=== PATIENT | female | born 1985 | race Caucasian/White ===

== ENCOUNTER 2023-06-21 13:02 | Emergency (ER) | payer OTHER, SELFPAY ==
--- NOTE | ~2023-06-21 | US_ITS ---
EXAMINATION: US PELVIS CLINICAL INFORMATION: Lower abdominal pain COMPARISON: None available. TECHNIQUE: Ultrasound of the pelvis is performed using both transabdominal and transvaginal transducers along with Doppler. Transvaginal imaging is performed due to inadequate visualization transabdominally. FINDINGS: Uterus: The uterus is anteverted, anteflexed and measured 7.3 x 3.8 x 4.3 cm. The double wall endometrial thickness is 1.0 cm. The uterus is smooth in contour and has normal myometrial echogenicity. There is a hypoechoic lesion in the anterior fundus measuring 1.5 x 1.7 x 1.8 cm. There are small nabothian cysts seen in the cervix. Adnexa: Both ovaries are visualized. There is normal color flow to the adnexa. There is no ovarian torsion. There is no pelvic ascites or fluid collection. Right ovary measures 3.0 x 1.7 x 1.4 cm and volume 3.8 mL. It appears unremarkable. Left ovary measures 3.2 x 2.2 x 1.9 cm and volume 6.8 mL. There is no free fluid in the cul-de-sac. US/US pelvic and transvaginal IMPRESSION: 1. Small uterine fibroid. 2. Small nabothian cysts in the cervix. 3. The ovaries are unremarkable.
--- NOTE | ~2023-06-21 | US_ITS ---
EXAMINATION: US RETROPERITONEAL LIMITED (RENAL ONLY) CLINICAL INFORMATION: Suprapubic pain. History of kidney stones.. COMPARISON: None available. TECHNIQUE: Routine grayscale imaging of kidneys was performed. The bladder was not imaged. FINDINGS: RIGHT KIDNEY: 10.2 x 4.7 x 4.7 cm (SAG x AP x TRV). The kidney is normal in size, contour, and echogenicity. Renal cortical thickness is normal. No calculi or focal parenchymal lesions. No hydronephrosis. LEFT KIDNEY: 10.6 x 5.2 x 4.3 cm (SAG x AP x TRV). The kidney is normal in size, contour, and echogenicity. Renal cortical thickness is normal. No calculi or focal parenchymal lesions. No hydronephrosis. Incidental finding of a likely small accessory splenule at the tip of spleen and superior border of kidney. US/US renal BI IMPRESSION: Unremarkable renal ultrasound.
[2023-06-21 13:13] VITALS: BP 132/74; PULSE 102; RESP 16; TEMP 36.6; O2SAT 97; BMI 33.7
--- NOTE | 2023-06-21 13:16 | ED.GENADULT ---
HPI - General Adult General Chief complaint: Abdominal Pain Stated complaint: Low Abd Pain Time Seen by Provider: 06/21/23 13:23 Source: patient Mode of arrival: ambulatory Limitations: no limitations History of Present Illness HPI narrative: Patient is a 38-year-old female with history of kidney stones, bilateral salpingectomy, ectopic , and ovarian cyst which required urgent surgery presenting to the emergency department with complaint of lower abdominal pain since this morning. Reports pain became so severe at work that she was advised to come to the emergency department. She denies any nausea, vomiting, diarrhea, constipation. Denies vaginal bleeding or other vaginal discharge. Denies concern for STIs. Describes pain as suprapubic cramping. She denies dysuria or hematuria. Complains of some low back pain but denies flank pain. MD complaint: lower abdominal pain Onset (ago): hour(s) Location: abdomen Radiation: non-radiation Severity: severe Severity scale (1-10): 8 Quality: aching Pain Consistency: constant Relieving factors: none Treatments prior to arrival: none Related Data Previous Rx's Medication Instructions Recorded ondansetron 4 mg disintegrating 4 mg PO Q8H PRN nausea and 06/21/23 tablet vomiting #10 tabs oxycodone 5 mg tablet 5 mg PO Q8H PRN severe pain (scale 06/21/23 score 7-10) #6 tabs Allergies Allergy/AdvReac Type Severity Reaction Status Date / Time aspirin [ASPIRIN] Allergy Severe ANAPHYLAXIS Verified 06/21/23 14:19 bee pollen [BEE STINGS] Allergy Unknown ANAPHYLAXIS Verified 06/21/23 14:19 latex [LATEX] Allergy Unknown RASH Verified 06/21/23 14:19 Sulfa (Sulfonamide Allergy Unknown RASH Verified 06/21/23 14:19 Antibiotics) [SULFA (SULFONAMIDE ANTIBIOTICS)] medroxyprogesterone Allergy Unknown Verified 06/21/23 14:19 [From Depo-Provera] nitrofurantoin Allergy Anaphylaxis Verified 06/21/23 14:19 [From Macrobid] Review of Systems Review of Systems: As per HPI. Yes all other systems are reviewed and are negative Constitutional: Constitutional: Reports as per HPI [facility] Social History Social History Advance Directives: No Physical Exam ED Vital Signs: Vital Signs - 24 hr 06/21/23 13:13 Temperature 97.8 F Pulse Rate 102 H Respiratory Rate 16 Blood Pressure 132/74 Pulse Oximetry 97 Oxygen Delivery Method Room Air BMI result Body Mass Index 33.7 Vital signs have been reviewed and appear to be correct. Blood pressure normal. Heart rate normal. Respiratory rate normal. Temperature normal. Oxygen saturation normal. Const General: cooperative, healthy appearing and no acute distress Orientation/consciousness: oriented to person, oriented to place, oriented to time and patient oriented x3 Limitations: no limitations HENMT Head: Yes normocephalic and Yes atraumatic Ears: external ears normal General nose exam: Normal external nose present Face and sinus: Yes face symmetric Mouth: oropharynx normal and moist mucous membranes Throat: Yes uvula midline Eyes Pupils: Equal, round and reactive pupils present Neck Neck: Yes normal visual inspection and Yes supple Resp Effort & Inspection: normal respiratory effort and able to speak in complete sentences Auscultation: clear to auscultation bilaterally Cardio Rate: regular rate Rhythm: regular rhythm Heart sounds: S1 normal heart sound present and S2 normal heart sound present GI Inspection: Yes normal to inspection Palpation (GI): Soft to palpation and Tenderness to palpation present (GI) in the LLQ, in the RLQ and suprapubicly Auscultation: normoactive bowel sounds Other: Pelvic exam chaperoned by LEOBARDO Godoy and JACKELIN Story. General: Yes no CVA tenderness External Female Exam: normal external appearance Speculum Exam - Vagina: normal appearance of the vagina Speculum Exam - Cervix: normal appearance of the cervix, normal palpation, Cervical os closed and normal vervical discharge Bimanual exam- vagina & uterus: normal palpation Back/Spine/Pelvis Back: no CVA tenderness Skin General skin exam: elasticity normal and turgor normal Neuro General: oriented to person, oriented to place, oriented to time, patient oriented x3, moves all extremities, no focal motor deficits and CN's II-XI intact bilaterally Cranial nerves: Yes Equal, round and reactive pupils present Cognition (Neuro): normal cognition Extrem General: Yes full ROM, Yes no pedal edema and Yes no calf tenderness Psych Mental Status: mental status grossly normal Affect: normal affect Thought process: Normal thought process present Course Course Course Narrative: This is an RME: Additional HPI, ROS, PE not included below will be deferred to primary provider. 38 yo f presents w/ lower abd pain and pain w/ emptying bladder Plann- labs ua Reevaluation(s) Reevaluation #1: 06/24/23 0919-- received results of STI panel. Patient has tested negative for gonorrhea, chlamydia, Trichomonas and Rocio. She did test positive for Gardnerella. I called and spoke with patient and informed her of all results. She states that she is not currently having any symptoms of abnormal vaginal discharge or fishy odor. She will not be treated with metronidazole at this time as she is asymptomatic and she was advised to return to the ED if she does develop these symptoms. Medications Administered Discontinued Medications Generic Name Dose Route Start Last Admin Trade Name Deja PRN Reason Stop Dose Admin Oxycodone HCl 5 mg 06/21/23 14:07 06/21/23 14:18 Oxycodone Hcl Immed Release 5 Mg Tablet PO 06/21/23 14:08 5 mg ONCE ONE Administration Medical Decision Making Medical Decision Making MDM Narrative: Patient is a 38-year-old female with history of kidney stones, bilateral salpingectomy, ectopic , and ovarian cyst which required urgent surgery presenting to the emergency department with complaint of lower abdominal pain since this morning. On exam patient is awake, A+Ox3, VS WNL, afebrile, normal neurological exam without focal deficits, physical exam findings as above. Given reported symptoms and physical exam findings, initial differential includes UTI/pyelonephritis, ovarian cyst, uterine fibroid, STI, BV, renal or ureteral calculi. Labs notable for no leukocytosis, no anemia, no significant electrolyte abnormalities. Ultrasounds notable for unremarkable renal exam, small uterine fibroid, unremarkable ovaries. My interpretation is in agreement with the radiologist's interpretation. Patient reports pain has improved with medications given in the ED. feel patient is stable for discharge home at this time. Patient states she does not currently have an [employer], will refer to Dr. Schilling for follow up. CT NG pending, will contact patient with any positive results. Advised patient to alternate Tylenol and ibuprofen, will prescribe a few oxycodone for severe pain as well as zofran for nausea. Discussed strict return precautions with patient at bedside. Patient verbalized understanding of and agreement with plan. Differential Diagnosis Differential Diagnoses: The differential diagnosis associated with the presentation includes As per MDM. Admission/Observation Consideration of admission/observation: Escalation of care including admission/observation considered Patient would have been admitted to the hospital had their work up had any findings where hospital admission was appropriate and their clinical presentation warranted hospital admission. Lab Data [facility] [place] Lab Attestation statement: I reviewed the patient's lab results. As per [facility] [place] 06/21/23 13:46 06/21/23 13:46 Labs: Lab Results 06/21/23 06/21/23 06/21/23 Range/Units 13:31 13:46 16:50 WBC 7.4 (4.8-10.8) X10*3/uL RBC 4.42 (4.20-5.50) X10*6/uL Hgb 13.0 (12.0-16.0) g/dl Hct 37.7 (37.0-47.0) % MCV 85.3 (80.0-98.0) fL MCH 29.4 (27.0-33.0) pg MCHC 34.5 (31.0-35.0) g/dl RDW 12.6 (11.0-16.0) % Plt Count 378 (160-400) X10*3/uL MPV 8.3 L (9.4-12.3) fL Immature Gran % (Auto) 0.3 (0.0-0.4) % Neut % (Auto) 59.7 (45-73) % Lymph % (Auto) 32.1 (20-40) % [place] % (Auto) 6.1 (2-11) % Eos % (Auto) 1.1 (0-4) % Baso % (Auto) 0.7 (0-2) % Lymph # (Auto) 2.4 (1.2-4.9) X10*3/uL [place] # (Auto) 0.5 (0.1-1.2) X10*3/uL Eos # (Auto) 0.1 (0.0-0.4) X10*3/uL Baso # (Auto) 0.1 (0.0-0.2) X10*3/uL Abs Immat Gran (auto) 0.02 (0.00-0.03) X10*3/uL Absolute Neuts (auto) 4.4 (2.0-8.3) x10*3/uL Absolute Nucleated RBC 0.000 (0.0-0.012) X10*3/uL Nucleated RBC % (auto) 0.0 (0.0-0.2) /100WBC Sodium 137 (135-145) mmol/L Potassium 3.9 (3.3-5.1) mmol/L Chloride 106 (96-108) mmol/L Carbon Dioxide 26 (22-29) mmol/L Anion Gap 9 L (12-20) BUN 6 L (9-16) mg/dL Creatinine 0.75 (0.5-1.4) mg/dL Estim Creat Clear Calc 98.9 Estimated GFR > 60 Random Glucose 88 (60-115) mg/dL Calcium 9.2 (8.4-10.2) mg/dL Magnesium 1.8 (1.6-2.6) mg/dL Total Bilirubin 0.2 (0.0-1.0) mg/dL AST 18 (5-31) U/L ALT 16 (0-31) U/L Alkaline Phosphatase 90 (39-117) U/L Total Protein 7.2 (6.5-8.0) g/dL Albumin 4.2 (3.5-5.0) g/dL Lipase 152 H (8-78) U/L Urine Color Yellow Urine Appearance Clear Urine pH 6.5 (5.0-9.0) Ur Specific [place] <= 1.005 (1.005-1.025) Urine Protein Negative (Neg-Trace) mg/dL Urine Glucose (UA) Negative (Negative) mg/dL Urine Ketones Negative (Negative) mg/dL Urine Blood Negative (Negative) Urine Nitrite Negative (Negative) Ur Leukocyte Esterase Negative (Negative) Urine Test NEGATIVE (NEGATIVE) Rocio species DNA Negative (Negative) Chlam trachomat DNA PCR NOT DETECTED (Not Detect.) Gardnerella DNA Probe Positive A (Negative) N.gonorrhoeae DNA (PCR) NOT DETECTED (Not Detect.) Trichomonas DNA Probe Negative (Negative) Independent Interpretation I performed an independent interpretation of an: Ultrasound Interpretation: no renal abnormalities, small uterine fibroid, unremarkable ovaries Radiology Impression Discussion of test interpretation with radiology: I have reviewed the radiologist's reading. Radiologist Impression: US/US pelvic and transvaginal IMPRESSION: 1. Small uterine fibroid. 2. Small nabothian cysts in the cervix. 3. The ovaries are unremarkable. US/US renal BI IMPRESSION: Unremarkable renal ultrasound. External Record Review External record reviewed: Inpatient record, Office record and Outpatient record Prescription Management I considered prescription management with: Pain Medication and Other Discharge Plan Discharge Clinical Impression: Uterine fibroid, Abdominal pain Patient Disposition: Home, Self-Care Instructions: Abdominal Pain (ED) Additional Instructions: You were evaluated in the emergency department today for abdominal pain. Your ultrasound showed evidence of a uterine fibroid which may be the cause of your pain. We recommend that you take 600 mg ibuprofen or 650 mg Tylenol every 6 hours as needed for discomfort. If necessary, you can alternate these medications every 6 hours. For example, at 9:00 a.m. take Tylenol, then at noon take ibuprofen, then at 3:00 p.m. take Tylenol, etc.. You are being prescribed oxycodone for severe pain. You are also being prescribed Zofran (ondansetron) for nausea. You are being referred to Dr. Schilling, [employer] for follow up. Please return to the emergency department if you develop increasing abdominal pain, persistent vomiting, fever 100.4? F or greater, severe back or flank pain, or any other concerning symptoms. Prescriptions: New ondansetron 4 mg tablet,disintegrating 4 mg PO Q8H PRN (Reason: nausea and vomiting) Qty: 10 0RF oxycodone 5 mg tablet 5 mg PO Q8H PRN (Reason: severe pain (scale score 7-10)) Qty: 6 0RF Rx Instructions: Partial Fill upon patient request. Referrals: Ced Schilling MD [Physician] - Stand Alone Forms: Work/School Release Interventions: ED Discharge Assessment Last Done: 06/21/23 18:09 Discharge Date/Time: 06/21/23 18:31
[2023-06-21 13:41] LABS: Appearance Urine Clear; Color Urine Yellow; Glucose Urine UA Negative (Negative); Leukocyte Esterase Urine Negative (Negative); Nitrite Urine Negative (Negative); PH 6.5 (5.0-9.0); Specific Gravity - Urine <= 1.005 (1.005-1.025); Urine Blood Negative (Negative); Urine Ketones Negative (Negative); Urine Protein Negative (Neg-Trace)
[2023-06-21 13:42] LABS: UPreg QC Valid YES; Urine Pregnancy NEGATIVE (NEGATIVE)
[2023-06-21 13:51] LABS: MANUAL DIFF FLAG NO
[2023-06-21 13:53] LABS: Basophils Absolute Auto 0.1 X10*3/uL (0.0-0.2); Basophils Percent Auto 0.7 % (0-2); Eosinophils Absolute Auto 0.1 X10*3/uL (0.0-0.4); Eosinophils Percent Auto 1.1 % (0-4); Hematocrit 37.7 % (37.0-47.0); Imm Gran Abs Auto 0.02 X10*3/uL (0.00-0.03); Imm Gran Pct Auto 0.3 % (0.0-0.4); Lymphocytes Absolute Auto 2.4 X10*3/uL (1.2-4.9); Lymphocytes Percent Auto 32.1 % (20-40); Mean Corpuscular HGB Conc 34.5 g/dl (31.0-35.0); Mean Corpuscular Hemoglobin 29.4 pg (27.0-33.0); Mean Corpuscular Volume 85.3 fL (80.0-98.0); Mean Platelet Volume 8.3 fL (9.4-12.3); Monocytes Absolute Auto 0.5 X10*3/uL (0.1-1.2); Monocytes Percent Auto 6.1 % (2-11); Neutrophils Absolute Auto 4.4 x10*3/uL (2.0-8.3); Neutrophils Percent Auto 59.7 % (45-73); Platelet Count 378 X10*3/uL (160-400); Red Blood Count 4.42 X10*6/uL (4.20-5.50); Red Cell Distribution Width 12.6 % (11.0-16.0); White Blood Count 7.4 X10*3/uL (4.8-10.8)
[2023-06-21 14:14] LABS: Alanine Aminotransferase 16 U/L (0-31); Albumin Level 4.2 g/dL (3.5-5.0); Alkaline Phosphatase 90 U/L (39-117); Anion Gap 9 (12-20); Aspartate Amino Transferase 18 U/L (5-31); Bilirubin Total 0.2 mg/dL (0.0-1.0); Blood Urea Nitrogen 6 mg/dL (9-16); Calcium 9.2 mg/dL (8.4-10.2); Carbon Dioxide 26 mmol/L (22-29); Chloride 106 mmol/L (96-108); Creatinine Clr Calc Pharmacy 98.9; Estimated Glomerular Filt Rate > 60; Glucose Random 88 mg/dL (60-115); Lipase 152 U/L (8-78); Magnesium 1.8 mg/dL (1.6-2.6); Potassium 3.9 mmol/L (3.3-5.1); Sodium 137 mmol/L (135-145); Total Protein 7.2 g/dL (6.5-8.0)
[2023-06-21] MEDS: oxyCODONE HCl Immed Release 5 MG TABLET PO (14:18)
[2023-06-21 18:09] VITALS: BP 114/74; PULSE 70; RESP 16; TEMP 36.6; O2SAT 100
[2023-06-21 18:30] LABS: CT PCR NOT DETECTED (Not Detect.); NG PCR NOT DETECTED (Not Detect.)
[2023-06-22 13:56] LABS: BV Int Neg Control Negative (Negative); BV Int Pos Control Positive (Positive)
== END 2023-06-21 18:31 | disposition home or self-care (01) ==
PROVIDERS: Physician Assistant; Registered Nurse Emergency; Emergency Provider Emergency Medicine; PCP Internal Medicine
DX: D25.9 Leiomyoma of uterus, unspecified (principal); R10.30 Lower abdominal pain, unspecified; M54.50 Low back pain, unspecified; R10.2 Pelvic and perineal pain; R11.0 Nausea; Z79.899 Other long term (current) drug therapy
CPT/HCPCS: 0353U; 36415; 76775; 76830; 76856; 80053; 81003; 81025; 83690; 83735; 85025; 87480; 87510; 87660; 99284

== ENCOUNTER 2023-08-06 17:09 | Emergency (ER) | payer OTHER, SELFPAY ==
--- NOTE | ~2023-08-06 | US_ITS ---
EXAMINATION: US VENOUS ULTRASOUND WITH DOPPLER LOWER EXTREMITY, LEFT CLINICAL INFORMATION: Pain. COMPARISON: None available. TECHNIQUE: Ultrasound of the deep veins is performed from the hip to the calf with compression sonography and color and pulse Doppler assessment. Spectral analysis with color-flow imaging is performed. FINDINGS: There is normal venous compression and respiratory variation and augmented flow. The visualized common femoral vein, superficial femoral vein, profunda femoral vein, popliteal vein, and the trifurcation region shows no evidence of deep venous thrombosis. There is no significant popliteal fossa cyst. Additional images of the area of pain as pointed by the patient in the soft tissues of the left proximal to mid calf were obtained without a discrete sonographic abnormality including no organized collection or mass. If the patient's symptoms persist, followup ultrasound in 5 days 7 days might be of value to exclude proximal propagation from a non-visualized calf vein. US/US venous duplex LE LT IMPRESSION: No DVT demonstrated in the left lower extremity.
[2023-08-06 17:41] VITALS: BP 141/88; PULSE 91; RESP 14; TEMP 36.2; O2SAT 100; BMI 31.1
--- NOTE | 2023-08-06 17:41 | ED_ITS ---
HPI - General Adult General Chief complaint: Extremity Injury, Lower Stated complaint: pain left calf, getting worse Time Seen by Provider: 08/06/23 20:40 Source: patient Mode of arrival: ambulatory Limitations: no limitations History of Present Illness HPI narrative: Patient is a 38 year old assigned female at with no reported medical history presenting to the emergency department today with left lower leg pain. Patient states that her left lower leg was cramping last night and today it continues to hurt. Patient denies any dizziness, lightheadedness, abdominal pain, nausea, vomiting, fever, chills, blurry vision, double vision, loss of vision, chest pain, difficulty breathing, shortness of breath, back pain, night sweats, pain with urination, increased urinary frequency, increased urinary urgency, blood in her urine or stool, syncope or a near syncopal episode, recent trauma or falls, bowel incontinence, bladder incontinence, bowel retention, bladder retention, or any other complaints at this time. Onset (ago): day(s) (1) Location: left and lower extremity Radiation: non-radiation Severity: mild Severity scale (1-10): 4 Quality: aching and dull Pain Consistency: constant Relieving factors: none Exacerbating factors: none Associated symptoms: denies other symptoms Treatments prior to arrival: none Related Data Previous Rx's ?Medication ?Instructions ?Recorded ondansetron 4 mg disintegrating 4 mg PO Q8H PRN nausea and 06/21/23 tablet vomiting #10 tabs oxycodone 5 mg tablet 5 mg PO Q8H PRN severe pain (scale 06/21/23 score 7-10) #6 tabs cyclobenzaprine 5 mg tablet 5 mg PO TID PRN muscle spasm 7 08/06/23 days #21 tabs Allergies Allergy/AdvReac Type Severity Reaction Status Date / Time aspirin [ASPIRIN] Allergy Severe ANAPHYLAXIS Verified 08/06/23 17:44 bee pollen [BEE STINGS] Allergy Unknown ANAPHYLAXIS Verified 08/06/23 17:44 latex [LATEX] Allergy Unknown RASH Verified 08/06/23 17:44 Sulfa (Sulfonamide Allergy Unknown RASH Verified 06/21/23 14:19 Antibiotics) [SULFA (SULFONAMIDE ANTIBIOTICS)] medroxyprogesterone Allergy Unknown Verified 08/06/23 17:44 [From Depo-Provera] nitrofurantoin Allergy Anaphylaxis Verified 08/06/23 17:44 [From Macrobid] Review of Systems 2 Constitutional: Constitutional: Reports no additional constitutional complaints, Denies chills, Denies fever(s) and Denies night sweats Eyes: Eyes: Reports no additional eye complaints, Denies blurry vision, Denies change in vision, Denies diplopia, Denies eye discharge, Denies loss of vision and Denies eye pain ENT: Denies dizziness Cardiovascular: Cardiovascular: Reports no additional cardiovascular complaints, Denies chest pain, Denies lightheadedness, Denies Loss of Consciousness and Denies dyspnea Respiratory: Respiratory: Reports no additional respiratory complaints and Denies dyspnea Gastrointestinal: Gastrointestinal: Reports no additional gastrointestinal complaints, Denies abdominal pain, Denies melena, Denies hematochezia, Denies change in bowel habits and Denies change in stool character Genitourinary: Genitourinary: Denies hematuria, Denies urinary frequency, Denies dysuria, Denies urinary incontinence, Denies urinary hesitancy and Denies urinary urgency Musculoskeletal: Musculoskeletal: Reports no additional musculoskeletal complaints, Denies numbness and Denies tingling Comments: left lower leg pain Neurologic: Denies dizziness, Denies loss of vision, Denies numbness and Denies tingling Psychiatric: Psychiatric: Reports no additional psychiatric complaints Endocrine: Endocrine: Reports no additional endocrine complaints Hematologic/Lymphatic: Hematologic/Lymphatic: Reports no additional hematologic/lymphatic complaints Allergic/Immunologic: Allergic/Immunologic: Reports no additional allergic/immunologic complaints PMFSH Past Medical History Attestation statement: The following information was validated with the patient. Source: old records reviewed and nursing notes reviewed Social History Social History Advance Directives: No Advance Directives Information Provided: No Do you have a plan to hurt others: No Plan Physical Exam ED Vital Signs: Vital Signs - 24 hr 08/06/23 17:41 Temperature 97.1 F Pulse Rate 91 Respiratory Rate 14 Blood Pressure 141/88 H Pulse Oximetry 100 Oxygen Delivery Method Room Air BMI result Body Mass Index 31.1 Const General: cooperative, no acute distress, alert and awake Nutritional Appearance: well nourished Orientation/consciousness: patient oriented x3 Limitations: no limitations HENMT Head: Yes normal to inspection and Yes atraumatic Ears: hearing grossly normal bilaterally and external ears normal General nose exam: Normal external nose present, no nasal discharge noted and no epistaxis Face and sinus: Yes normal facial exam, No abrasion and No laceration Mouth: Normal oral and palatal mucosa present, no drooling and no muffled voice Eyes General: appearance normal, both eyes and all related structures Periorbital: periorbital findings normal Eyelids: Yes eyelids normal Conjunctivae: conjunctivae normal Pupils: Equal, round and reactive pupils present EOM: EOMs intact bilaterally Neck Neck: Yes normal visual inspection, Yes full ROM and Yes no lymphadenopathy Chest Chest palpation & inspection: normal inspection of the chest Resp Effort & Inspection: normal respiratory effort and able to speak in complete sentences GI Inspection: Yes normal to inspection Neuro General: patient oriented x3 and moves all extremities Cranial nerves: Yes Equal, round and reactive pupils present Cognition (Neuro): normal cognition Motor exam (neuro): 5/5 motor strength present throughout Sensory Exam: Normal double simultaneous stimulation for sensation Coordination: [id number] test normal Extrem General: Yes normal to inspection, Yes full ROM and Yes capillary refill normal Psych Appearance: grossly normal Mental Status: mental status grossly normal Affect: normal affect Attitude: cooperative Thought process: Normal thought process present Thought content: Normal thought content present Insight: Good insight present (Psych) Course Course Course Narrative: This is an RME: Additional HPI, ROS, PE not included below will be deferred to primary provider. 38 yo f presents with left calf pain since 3:00 this morning, worsening. No trauma to area, no travel, no control. Denies cp, sob, nausea, vomiting, diarrhea. Plan- labs and imaging Medications Administered Discontinued Medications Generic Name Dose Route Start Last Admin Trade Name Deja PRN Reason Stop Dose Admin Cyclobenzaprine HCl 5 mg 08/06/23 22:28 08/06/23 23:16 Cyclobenzaprine Hcl 5 Mg Tablet PO 08/06/23 22:29 5 mg ONCE ONE Administration Medical Decision Making Medical Decision Making [facility] Narrative: Patient is a 38 year old assigned female at with no reported medical history presenting to the emergency department today with left lower leg pain. Patient's physical exam was unremarkable. Patient's blood work was unremarkable. Patient's left lower leg US showed no acute process. I explained my physical exam findings as well as all test results to the patient. I answered all questions asked by the patient. I stressed the importance of the patient taking her medication as prescribed. I stressed the importance of the patient following up with her primary care provider. I stressed the importance of the patient returning to the emergency department immediately if her symptoms were to worsen or if she were to develop any dizziness, shortness of breath, difficulty breathing, chest pain, blurry vision, loss of vision, nausea, vomiting, abdominal pain, fever, chills, back pain, or any other complaints. Patient verbalized agreement and understanding with this treatment plan and discharge. Differential Diagnosis Differential Diagnoses: The differential diagnosis associated with the presentation includes Left lower leg pain Left lower leg cramping Left lower leg muscle spasm DVT Admission/Observation Consideration of admission/observation: Escalation of care including admission/observation considered Patient would have been admitted to the hospital had her work up had any findings where hospital admission was appropriate and her clinical presentation warranted hospital admission. Lab Data [facility] Lab Attestation statement: I reviewed the patient's lab results. My interpretation of these results are in the [facility] Rationale portion of this note. 08/06/23 17:40 08/06/23 17:40 Labs: Lab Results 08/06/23 Range/Units 17:40 WBC 7.2 (4.8-10.8) X10*3/uL RBC 4.16 L (4.20-5.50) X10*6/uL Hgb 12.3 (12.0-16.0) g/dl Hct 36.7 L (37.0-47.0) % MCV 88.2 (80.0-98.0) fL MCH 29.6 (27.0-33.0) pg MCHC 33.5 (31.0-35.0) g/dl RDW 13.3 (11.0-16.0) % Plt Count 384 (160-400) X10*3/uL MPV 8.5 L (9.4-12.3) fL Immature Gran % (Auto) 0.3 (0.0-0.4) % Neut % (Auto) 53.5 (45-73) % Lymph % (Auto) 36.5 (20-40) % Storey % (Auto) 7.2 (2-11) % Eos % (Auto) 1.9 (0-4) % Baso % (Auto) 0.6 (0-2) % Lymph # (Auto) 2.6 (1.2-4.9) X10*3/uL Storey # (Auto) 0.5 (0.1-1.2) X10*3/uL Eos # (Auto) 0.1 (0.0-0.4) X10*3/uL Baso # (Auto) 0.0 (0.0-0.2) X10*3/uL Abs Immat Gran (auto) 0.02 (0.00-0.03) X10*3/uL Absolute Neuts (auto) 3.9 (2.0-8.3) x10*3/uL Absolute Nucleated RBC 0.000 (0.0-0.012) X10*3/uL Nucleated RBC % (auto) 0.0 (0.0-0.2) /100WBC PT 10.9 L (11.1-13.3) SEC INR 0.9 (0.9-1.1) Sodium 139 (135-145) mmol/L Potassium 4.2 (3.3-5.1) mmol/L Chloride 105 (96-108) mmol/L Carbon Dioxide 27 (22-29) mmol/L Anion Gap 11 L (12-20) BUN 11 (9-16) mg/dL Creatinine 0.83 (0.5-1.4) mg/dL Estim Creat Clear Calc 89.2 Estimated GFR > 60 Random Glucose 87 (60-115) mg/dL Calcium 9.1 (8.4-10.2) mg/dL Total Bilirubin 0.3 (0.0-1.0) mg/dL AST 34 H (5-31) U/L ALT 20 (0-31) U/L Alkaline Phosphatase 87 (39-117) U/L Total Protein 7.0 (6.5-8.0) g/dL Albumin 4.1 (3.5-5.0) g/dL Independent Interpretation I performed an independent interpretation of an: Ultrasound Interpretation: My interpretation is in agreement with the radiologist's impression of this imaging study. - EXAMINATION: US VENOUS ULTRASOUND WITH DOPPLER LOWER EXTREMITY, LEFT CLINICAL INFORMATION: Pain. COMPARISON: None available. TECHNIQUE: Ultrasound of the deep veins is performed from the hip to the calf with compression sonography and color and pulse Doppler assessment. Spectral analysis with color-flow imaging is performed. FINDINGS: There is normal venous compression and respiratory variation and augmented flow. The visualized common femoral vein, superficial femoral vein, profunda femoral vein, popliteal vein, and the trifurcation region shows no evidence of deep venous thrombosis. There is no significant popliteal fossa cyst. Additional images of the area of pain as pointed by the patient in the soft tissues of the left proximal to mid calf were obtained without a discrete sonographic abnormality including no organized collection or mass. If the patient's symptoms persist, followup ultrasound in 5 days 7 days might be of value to exclude proximal propagation from a non-visualized calf vein. US/US venous duplex LE LT IMPRESSION: No DVT demonstrated in the left lower extremity. Dictated By: Lexi Mendoza Signed By: Electronically signed by Lexi Mendoza 08/06/23 9519 Radiology Impression Discussion of test interpretation with radiology: I have reviewed the radiologist's reading. Prescription Management I considered prescription management with: Pain Medication (patient prescribed pain medication.) Discharge Plan Discharge Clinical Impression: Muscle spasm Patient Disposition: Home, Self-Care Instructions: Leg Cramps (ED), Muscle Spasm (ED) Additional Instructions: Increase your fluid intake. Follow up with your primary care provider. Return to the emergency department immediately if your symptoms worsen or if you develop any dizziness, shortness of breath, difficulty breathing, chest pain, blurry vision, loss of vision, nausea, vomiting, abdominal pain, fever, chills, back pain, or any other complaints. Prescriptions: New cyclobenzaprine 5 mg tablet 5 mg PO TID PRN (Reason: muscle spasm) 7 Days Qty: 21 0RF No Action ondansetron 4 mg tablet,disintegrating 4 mg PO Q8H PRN (Reason: nausea and vomiting) Qty: 10 0RF oxycodone 5 mg tablet 5 mg PO Q8H PRN (Reason: severe pain (scale score 7-10)) Qty: 6 0RF Rx Instructions: Partial Fill upon patient request. Referrals: [facility] [Provider Group] (Call to establish and follow up with a primary care provider. If you already have a primary care provider, please follow up with them.) [facility] [place] [facility] [Provider Group] [facility] [facility] [Provider Group] Stand Alone Forms: Work/School Release Interventions: ED Discharge Assessment Last Done: 08/06/23 23:18 Discharge Date/Time: 08/06/23 23:19 Print Language: Japanese
[2023-08-06 17:43] LABS: MANUAL DIFF FLAG NO
[2023-08-06 17:47] LABS: Basophils Percent Auto 0.6 % (0-2); Eosinophils Absolute Auto 0.1 X10*3/uL (0.0-0.4); Eosinophils Percent Auto 1.9 % (0-4); Hematocrit 36.7 % (37.0-47.0); Hemoglobin 12.3 g/dl (12.0-16.0); Imm Gran Abs Auto 0.02 X10*3/uL (0.00-0.03); Imm Gran Pct Auto 0.3 % (0.0-0.4); Lymphocytes Absolute Auto 2.6 X10*3/uL (1.2-4.9); Lymphocytes Percent Auto 36.5 % (20-40); Mean Corpuscular HGB Conc 33.5 g/dl (31.0-35.0); Mean Corpuscular Hemoglobin 29.6 pg (27.0-33.0); Mean Corpuscular Volume 88.2 fL (80.0-98.0); Mean Platelet Volume 8.5 fL (9.4-12.3); Monocytes Absolute Auto 0.5 X10*3/uL (0.1-1.2); Monocytes Percent Auto 7.2 % (2-11); Neutrophils Absolute Auto 3.9 x10*3/uL (2.0-8.3); Neutrophils Percent Auto 53.5 % (45-73); Platelet Count 384 X10*3/uL (160-400); Red Blood Count 4.16 X10*6/uL (4.20-5.50); Red Cell Distribution Width 13.3 % (11.0-16.0); White Blood Count 7.2 X10*3/uL (4.8-10.8)
[2023-08-06 17:53] LABS: INTERNATIONAL NORM RATIO 0.9 (0.9-1.1); Prothrombin Time 10.9 SEC (11.1-13.3)
[2023-08-06 18:01] LABS: Alanine Aminotransferase 20 U/L (0-31); Albumin Level 4.1 g/dL (3.5-5.0); Alkaline Phosphatase 87 U/L (39-117); Anion Gap 11 (12-20); Aspartate Amino Transferase 34 U/L (5-31); Bilirubin Total 0.3 mg/dL (0.0-1.0); Blood Urea Nitrogen 11 mg/dL (9-16); Calcium 9.1 mg/dL (8.4-10.2); Carbon Dioxide 27 mmol/L (22-29); Chloride 105 mmol/L (96-108); Creatinine Clr Calc Pharmacy 89.2; Estimated Glomerular Filt Rate > 60; Glucose Random 87 mg/dL (60-115); Potassium 4.2 mmol/L (3.3-5.1); Sodium 139 mmol/L (135-145)
[2023-08-06] MEDS: Cyclobenzaprine HCl 5 MG TABLET PO (23:16)
[2023-08-06 23:18] VITALS: BP 119/71; PULSE 65; RESP 18; TEMP 523.8; TEMP 975; O2SAT 99
== END 2023-08-06 23:19 | disposition home or self-care (01) ==
PROVIDERS: Physician Assistant; Emergency Provider Emergency Medicine
DX: M62.831 Muscle spasm of calf (principal); M79.605 Pain in left leg; R60.0 Localized edema; Z79.899 Other long term (current) drug therapy
CPT/HCPCS: 36415; 80053; 85025; 85610; 93971; 99283; 99284

== ENCOUNTER 2023-11-04 07:41 | Emergency (ER) | payer OTHER, SELFPAY ==
--- NOTE | 2023-11-04 | ECG_ITS ---
Test Reason : VOMITTING Blood Pressure : / mmHG Vent. Rate : 072 BPM Atrial Rate : 072 BPM P-R Int : 128 ms QRS Dur : 084 ms QT Int : 380 ms P-R-T Axes : 058 058 050 degrees QTc Int : 416 ms Normal sinus rhythm Low voltage QRS Borderline ECG When compared with ECG of 23-AUG-2013 21:29, No significant change was found Referred By: Generic ED Physician Electronically Signed By:STEFANIE WOOD
--- NOTE | ~2023-11-04 | CT_ITS ---
EXAMINATION: CT ABDOMEN AND PELVIS WITH CONTRAST CLINICAL INFORMATION: Right lower quadrant pain COMPARISON: Renal ultrasound June 21, 2023 TECHNIQUE: Multidetector volumetric images were obtained from the superior aspect of the liver through the pubic symphysis following administration 85 mL of Omnipaque 350 intravenous contrast. Sagittal and coronal reformatted images were obtained on the technologist's workstation. This CT examination was performed using dose optimization techniques as appropriate, variously including the following: *Automated exposure control *Adjustment of mA and/or kV according to patient size (this includes techniques or standardized protocols for targeted exams where dose is matched to indication/reason for exam; i.e. extremities or head) *Use of iterative reconstruction technique DLP: 596 mGy-cm FINDINGS: Visualized lung bases demonstrate mild dependent atelectasis. The liver is normal in size. The gallbladder is normal in appearance. The pancreas, spleen and adrenal glands are unremarkable. Symmetrically enhancing kidneys. No hydronephrosis of either kidney. Normal stomach distention. Normal caliber loops of small bowel. There are a few loops of small bowel within the left hemiabdomen which demonstrate mild circumferential mucosal thickening, nonspecific. Normal colonic stool burden. Normal appendix. Normal caliber abdominal aorta demonstrating minimal atherosclerotic disease. Tiny fat-containing umbilical hernia. The bladder is relatively decompressed. Unremarkable CT appearance of the uterus. No gross free pelvic fluid. No inguinal lymphadenopathy. No acute osseous abnormality. CT/CT abdomen pelvis w IV con IMPRESSION: There are a few loops of small bowel within the left hemiabdomen which demonstrate mild circumferential mucosal thickening. This is a nonspecific finding but may represent a mild enteritis. Clinical correlation recommended. Fleischner guidelines were followed.
[2023-11-04 07:50] VITALS: BP 127/70; PULSE 94; RESP 20; TEMP 37.2; O2SAT 98; BMI 35.9
[2023-11-04 08:26] LABS: MANUAL DIFF FLAG NO
[2023-11-04 08:29] LABS: Basophils Percent Auto 0.5 % (0-2); Eosinophils Absolute Auto 0.2 X10*3/uL (0.0-0.4); Eosinophils Percent Auto 2.3 % (0-4); Hematocrit 38.3 % (37.0-47.0); Hemoglobin 13.1 g/dl (12.0-16.0); Imm Gran Abs Auto 0.02 X10*3/uL (0.00-0.03); Imm Gran Pct Auto 0.3 % (0.0-0.4); Lymphocytes Absolute Auto 2.5 X10*3/uL (1.2-4.9); Lymphocytes Percent Auto 33.3 % (20-40); Mean Corpuscular HGB Conc 34.2 g/dl (31.0-35.0); Mean Corpuscular Hemoglobin 29.5 pg (27.0-33.0); Mean Corpuscular Volume 86.3 fL (80.0-98.0); Mean Platelet Volume 8.9 fL (9.4-12.3); Monocytes Absolute Auto 0.6 X10*3/uL (0.1-1.2); Monocytes Percent Auto 8.1 % (2-11); Neutrophils Absolute Auto 4.1 x10*3/uL (2.0-8.3); Neutrophils Percent Auto 55.5 % (45-73); Platelet Count 352 X10*3/uL (160-400); Red Blood Count 4.44 X10*6/uL (4.20-5.50); Red Cell Distribution Width 13.1 % (11.0-16.0); White Blood Count 7.4 X10*3/uL (4.8-10.8)
[2023-11-04 08:45] VITALS: BP 111/61; PULSE 71; RESP 14; TEMP 36.6; O2SAT 96
[2023-11-04 08:46] LABS: Alanine Aminotransferase 21 U/L (0-31); Alkaline Phosphatase 84 U/L (39-117); Anion Gap 13 (12-20); Aspartate Amino Transferase 16 U/L (5-31); Bilirubin Total 0.1 mg/dL (0.0-1.0); Blood Urea Nitrogen 10 mg/dL (9-16); Calcium 9.3 mg/dL (8.4-10.2); Carbon Dioxide 22 mmol/L (22-29); Chloride 109 mmol/L (96-108); Creatinine Clr Calc Pharmacy 88.2; Estimated Glomerular Filt Rate > 60; Glucose Random 78 mg/dL (60-115); Lipase 30 U/L (8-78); Magnesium 1.9 mg/dL (1.6-2.6); Potassium 3.8 mmol/L (3.3-5.1); Sodium 140 mmol/L (135-145); Total Protein 6.7 g/dL (6.5-8.0)
[2023-11-04 08:49] LABS: IDNOW Serial# 08D9AD1C; Influenza A Negative (Negative); Influenza B2 Negative (Negative)
[2023-11-04] MEDS: 0.9 % Sodium Chloride 1,000 ML 999 ML IV (08:59)
[2023-11-04] MEDS: Ketorolac Tromethamine 15 MG/ML VIAL IVPUSH (09:03)
[2023-11-04] MEDS: ondansetron HCL 4 MG/2 ML VIAL IVPUSH (09:03)
[2023-11-04 09:04] LABS: HCG Quantitative < 2 mIU/mL
--- NOTE | 2023-11-04 09:06 | ED.ABDPAIN ---
HPI - Abdominal Pain General Chief Complaint: Abdominal Pain Stated Complaint: Abd pain Time Seen by Provider: 11/04/23 08:11 Source: patient Mode of arrival: ambulatory Limitations: no limitations History of Present Illness ED Provider: RAFFAELE HPI narrative: 38 yo female with PMH of opiate use disorder not on MAT and no use in years, gastroparesis in the past improved after abstaining from opiates, hypothyroidism, prior R ovarian cyst removal and salpingectomy in setting of large ovarian cyst who comes in with c/o n/v/d fever on Sunday up to 102. Fever resolved on . Seen at urgent care on Sunday told could be viral vs appendicitis - strep and covid negative at that time. She still has pain, nausea and diarrhea - last ate some food yesterday. RLQ pain this AM. MD elicited complaint: abdominal pain Pertinent past history: none Onset (ago): day(s) (Sunday ) Pain Consistency: constant Radiation: RLQ Migration to: no migration Exacerbating factors: movement Relieving factors: nothing Associated symptoms: nausea, vomiting, diarrhea, fever and chills Related Data Previous Rx's ?Medication ?Instructions ?Recorded ondansetron 4 mg disintegrating 4 mg PO Q8H PRN nausea and 06/21/23 tablet vomiting #10 tabs oxycodone 5 mg tablet 5 mg PO Q8H PRN severe pain (scale 06/21/23 score 7-10) #6 tabs cyclobenzaprine 5 mg tablet 5 mg PO TID PRN muscle spasm 7 08/06/23 days #21 tabs ondansetron 4 mg disintegrating 4 mg PO Q8H PRN nausea and 11/04/23 tablet vomiting #20 tabs Allergies Allergy/AdvReac Type Severity Reaction Status Date / Time aspirin [ASPIRIN] Allergy Severe ANAPHYLAXIS Verified 11/04/23 07:54 bee pollen [BEE STINGS] Allergy Unknown ANAPHYLAXIS Verified 11/04/23 07:54 latex [LATEX] Allergy Unknown RASH Verified 11/04/23 07:54 Sulfa (Sulfonamide Allergy Unknown RASH Verified 11/04/23 07:54 Antibiotics) [SULFA (SULFONAMIDE ANTIBIOTICS)] medroxyprogesterone Allergy Unknown Verified 11/04/23 07:54 [From Depo-Provera] nitrofurantoin Allergy Anaphylaxis Verified 11/04/23 07:54 [From Macrobid] Review of Systems Review of Systems Constitutional : No Weight loss, No Fever, pos Chills ENT/Mouth : No sore throat, No Rhinorrhea Eyes: No Swelling, No Redness Cardiovascular : No Chest Pain, No SOB, NoEdema Respiratory : No Cough, No Sputum, No Wheezing Gastrointestinal : Positive Nausea, Positive Vomiting, positive Diarrhea, positive abdominal Pain, No Hematochezia, No Melena Genitourinary : No Dysuria, No Urinary Frequency, No Hematuria, No Urgency Musculoskeletal : No joint pain, No Myalgias, No Joint Swelling Skin : No Skin Lesions, No rash Neuro : No Weakness, No Numbness, No Dizziness, No Headache Psych : No Anxiety/Panic, No Depression All other systems reviewed and are negative. [facility] Past Medical History Attestation statement: The following information was validated with the patient. Source: old records reviewed Medical History (Updated 11/04/23 @ 10:04 by Kell Plummer DO) Hypothyroidism Gastroparesis Social History Social History Smoked in Last 30 Days: Yes Substance Use Type: Marijuana Substance Use Frequency: Daily Last Used Substance: Hours (ago) Advance Directives: No Advance Directives Information Provided: No Do you have a plan to hurt others: No Plan Patient : No Physical Exam ED Vital Signs: Vital Signs - 24 hr 11/04/23 07:50 11/04/23 08:45 11/04/23 10:19 Temperature 98.9 F 97.9 F Pulse Rate 94 71 55 Respiratory Rate 20 14 14 Blood Pressure 127/70 111/61 109/67 Pulse Oximetry 98 96 98 Oxygen Delivery Method Room Air Room Air Room Air BMI result Body Mass Index 35.9 Appearance: Alert. Oriented X3. No acute distress. Eyes: Pupils equal, round and reactive to light. ENT: Pharynx normal. Neck: Normal inspection. Neck supple. CVS: Normal heart rate and rhythm. Pulses normal. Respiratory: No respiratory distress. Breath sounds normal. Abdomen: Soft and moderate ttp in RLQ with + rovsings sign Skin: Skin warm and dry. Normal skin color. Normal skin turgor. Extremities: No lower extremity edema. No calf ttp Neuro: Oriented X 3. No motor deficit. No sensory deficit. Course Course Course Narrative: states had R sided ovarian surgery but on US 06/2023 ovary present her hx more consistent with enteritis doubt ovarian pathology has been seen for same in past here in June with negative workup Medical Decision Making Medical Decision Making [facility] Narrative: 38 yo female with PMH of opiate use disorder not on MAT and no use in years, gastroparesis in the past improved after abstaining from opiates, hypothyroidism, prior R ovarian cyst removal and salpingectomy here with worsening RLQ pain at this time will need labs, UA, CT scan for appendicitis, renal colic. IV toradol and fluids. Differential Diagnosis Differential Diagnoses: The differential diagnosis associated with the presentation includes constipation, colitis, appendicitis, renal colic Admission/Observation Consideration of admission/observation: Escalation of care including admission/observation considered labs reassuring has no ovary or tube on at that side doubt [facility] [employer] [facility] pathology no appendicitis fevers broke no vomiting stable for DC Lab Data [facility] Lab Attestation statement: I reviewed the patient's lab results. 11/04/23 08:21 11/04/23 08:21 Labs: Lab Results 11/04/23 11/04/23 Range/Units 08:21 10:24 WBC 7.4 (4.8-10.8) X10*3/uL RBC 4.44 (4.20-5.50) X10*6/uL Hgb 13.1 (12.0-16.0) g/dl Hct 38.3 (37.0-47.0) % MCV 86.3 (80.0-98.0) fL MCH 29.5 (27.0-33.0) pg MCHC 34.2 (31.0-35.0) g/dl RDW 13.1 (11.0-16.0) % Plt Count 352 (160-400) X10*3/uL MPV 8.9 L (9.4-12.3) fL Immature Gran % (Auto) 0.3 (0.0-0.4) % Neut % (Auto) 55.5 (45-73) % Lymph % (Auto) 33.3 (20-40) % [place] % (Auto) 8.1 (2-11) % Eos % (Auto) 2.3 (0-4) % Baso % (Auto) 0.5 (0-2) % Lymph # (Auto) 2.5 (1.2-4.9) X10*3/uL [place] # (Auto) 0.6 (0.1-1.2) X10*3/uL Eos # (Auto) 0.2 (0.0-0.4) X10*3/uL Baso # (Auto) 0.0 (0.0-0.2) X10*3/uL Abs Immat Gran (auto) 0.02 (0.00-0.03) X10*3/uL Absolute Neuts (auto) 4.1 (2.0-8.3) x10*3/uL Absolute Nucleated RBC 0.000 (0.0-0.012) X10*3/uL Nucleated RBC % (auto) 0.0 (0.0-0.2) /100WBC Sodium 140 (135-145) mmol/L Potassium 3.8 (3.3-5.1) mmol/L Chloride 109 H (96-108) mmol/L Carbon Dioxide 22 (22-29) mmol/L Anion Gap 13 (12-20) BUN 10 (9-16) mg/dL Creatinine 0.87 (0.5-1.4) mg/dL Estim Creat Clear Calc 88.2 Estimated GFR > 60 Random Glucose 78 (60-115) mg/dL Calcium 9.3 (8.4-10.2) mg/dL Magnesium 1.9 (1.6-2.6) mg/dL Total Bilirubin 0.1 (0.0-1.0) mg/dL AST 16 (5-31) U/L ALT 21 (0-31) U/L Alkaline Phosphatase 84 (39-117) U/L Total Protein 6.7 (6.5-8.0) g/dL Albumin 4.0 (3.5-5.0) g/dL Lipase 30 (8-78) U/L Beta HCG, Quant < 2 mIU/mL Urine Color Yellow Urine Appearance Clear Urine pH 6.5 (5.0-9.0) Ur Specific [place] >= 1.030 H (1.005-1.025) Urine Protein Trace (Neg-Trace) mg/dL Urine Glucose (UA) Negative (Negative) mg/dL Urine Ketones Trace (Negative) mg/dL Urine Blood Negative (Negative) Urine Nitrite Negative (Negative) Ur Leukocyte Esterase Negative (Negative) Influenza Type A (ERIBERTO) Negative (Negative) Influenza Type B (ERIBERTO) Negative (Negative) Influenza A & B Note See Note Independent Interpretation I performed an independent interpretation of an: CT Scan (enteritis) Radiology Impression Discussion of test interpretation with radiology: I have reviewed the radiologist's reading. Independent Historian Clinical information obtained from an independent historian. History obtained from or confirmed by: Spouse Prescription Management I considered prescription management with: Other Medications Administered Discontinued Medications Generic Name Dose Route Start Last Admin Trade Name [place] PRN Reason Stop Dose Admin Sodium Chloride 1,000 mls @ 999 mls/hr 11/04/23 08:31 11/04/23 08:59 Ns IV 11/04/23 09:31 999 mls/hr .Q1H1M ONE Administration Iohexol 100 ml 11/04/23 09:33 11/04/23 09:33 Iohexol 350 Mg/Ml 100 Ml Infus..Btl IV 11/04/23 09:34 85 ml ONCE ONE Administration Ketorolac Tromethamine 15 mg 11/04/23 08:52 11/04/23 09:03 Ketorolac Tromethamine 15 Mg/Ml Vial IVPUSH 11/04/23 08:53 15 mg ONCE ONE Administration Ondansetron HCl 4 mg 11/04/23 08:31 11/04/23 09:03 Ondansetron Hcl 4 Mg/2 Ml Vial IVPUSH 11/04/23 08:32 4 mg ONCE ONE Administration Discharge Plan Discharge Clinical Impression: Enteritis Abdominal pain Qualifiers: Abdominal location: right lower quadrant Qualified Code(s): R10.31 - Right lower quadrant pain Patient Disposition: Home, Self-Care Instructions: Abdominal Pain (ED), Enteritis (ED) Additional Instructions: labs reassuring, viral panel normal, CT scan no acute findings normal appendix, small bowel mildly inflammed but very miminal likely this is resolving viral syndrome bland diet and advance slowly return for worsening pain, fevers, unable to eat or drink, bloody stools or any other concerns. urine also negative at this time no active infection CT/CT abdomen pelvis w IV con IMPRESSION: There are a few loops of small bowel within the left hemiabdomen which demonstrate mild circumferential mucosal thickening. This is a nonspecific finding but may represent a mild enteritis. Clinical correlation recommended. Prescriptions: New ondansetron 4 mg tablet,disintegrating 4 mg PO Q8H PRN (Reason: nausea and vomiting) Qty: 20 0RF No Action ondansetron 4 mg tablet,disintegrating 4 mg PO Q8H PRN (Reason: nausea and vomiting) Qty: 10 0RF oxycodone 5 mg tablet 5 mg PO Q8H PRN (Reason: severe pain (scale score 7-10)) Qty: 6 0RF Rx Instructions: Partial Fill upon patient request. cyclobenzaprine 5 mg tablet 5 mg PO TID PRN (Reason: muscle spasm) 7 Days Qty: 21 0RF Print Language: Djib[place]ian
--- NOTE | 2023-11-04 09:11 | PC.NURSE ---
Pt comes to ED today for c/o R sided abd pain 11/16 States she went to urgent care earlier in the week and was d/c'd. Verified ASA allergy, states was dx as a child. Reports she has taken Ibuprofen and Toradol in the past with no issue. VSS, afebrile, A&OX3 Medicated per JUN. Awaiting CT.
[2023-11-04] MEDS: iohexoL 350 MG/ML 100 ML INFUS..BTL IV (09:33)
[2023-11-04 10:19] VITALS: BP 109/67; PULSE 55; RESP 14; O2SAT 98
[2023-11-04 10:30] LABS: Appearance Urine Clear; Color Urine Yellow; Glucose Urine UA Negative (Negative); Leukocyte Esterase Urine Negative (Negative); Nitrite Urine Negative (Negative); PH 6.5 (5.0-9.0); Specific Gravity - Urine >= 1.030 (1.005-1.025); Urine Blood Negative (Negative); Urine Ketones Trace mg/dL (Negative); Urine Protein Trace mg/dL (Neg-Trace)
[2023-11-04] MEDS: oxyCODONE HCl Immed Release 5 MG TABLET PO (10:47)
[2023-11-04 10:51] VITALS: BP 109/67; PULSE 55; RESP 14; TEMP 36.5; O2SAT 98
== END 2023-11-04 10:52 | disposition home or self-care (01) ==
PROVIDERS: Emergency Provider Emergency Medicine; PCP Internal Medicine
DX: K52.9 Noninfective gastroenteritis and colitis, unspecified (principal); R10.31 Right lower quadrant pain; R11.2 Nausea with vomiting, unspecified; F12.90 Cannabis use, unspecified, uncomplicated; R10.2 Pelvic and perineal pain; R94.31 Abnormal electrocardiogram [ECG] [EKG]; Z79.899 Other long term (current) drug therapy
CPT/HCPCS: 36415; 74177; 80053; 81003; 83690; 83735; 84702; 85025; 87502; 93005; 96360; 96374; 96375; 99284; 99285; J1885; J2405; Q9967

== ENCOUNTER → 2023-11-04 08:07 | Outpatient (BNV) | payer OTHER, SELFPAY | PROVIDERS: Emergency Provider Emergency Medicine; PCP Internal Medicine; Visit Provider Internal Medicine | DX: R94.31 Abnormal electrocardiogram [ECG] [EKG] (principal) | CPT/HCPCS: 93010 ==

== ENCOUNTER 2023-12-17 07:56 | Emergency (ER) | payer OTHER, SELFPAY ==
--- NOTE | ~2023-12-17 | CT_ITS ---
EXAMINATION: CT ABDOMEN AND PELVIS WITH CONTRAST CLINICAL INFORMATION: Abdominal right lower quadrant pain with nausea COMPARISON: CT abdomen and pelvis 11/04/2023 TECHNIQUE: Multidetector volumetric images were obtained from the superior aspect of the liver through the pubic symphysis following administration 85 mL of Omnipaque 350 intravenous contrast. Sagittal and coronal reformatted images were obtained on the technologist's workstation. Oral contrast: No This CT examination was performed using dose optimization techniques as appropriate, variously including the following: *Automated exposure control *Adjustment of mA and/or kV according to patient size (this includes techniques or standardized protocols for targeted exams where dose is matched to indication/reason for exam; i.e. extremities or head) *Use of iterative reconstruction technique DLP: 650 mGy-cm FINDINGS: LUNG BASES: The visualized lung bases are unremarkable. LIVER, GALLBLADDER, AND BILIARY TREE: The liver is prominent in size at 17.5 cm in greatest length with normal shape, and attenuation with the exception of a focal area of decreased attenuation adjacent to the falciform ligament fairly characteristic of focal fat. No suspicious focal hepatic lesion or biliary ductal dilatation is present. The gallbladder is unremarkable with no evidence of radiopaque gallstones, gallbladder wall thickening, or obvious pericholecystic inflammatory changes. PANCREAS: Unremarkable. SPLEEN: Unremarkable. Small splenule is present. ADRENAL GLANDS: Unremarkable. KIDNEYS AND URETERS: The kidneys are normal in size, shape, and attenuation. No hydronephrosis, hydroureter, or calculi seen. No perinephric stranding. BLADDER: Empty and cannot be evaluated GASTROINTESTINAL TRACT: The small and large bowel are unremarkable. The appendix is not identified but there is no evidence of appendicitis. ABDOMINAL WALL: No significant hernia is appreciated. LYMPH NODES: Normal. VASCULAR: Unremarkable. PELVIC VISCERA: Unremarkable. OSSEOUS STRUCTURES: Unremarkable. CT/CT abdomen pelvis w IV con IMPRESSION: A cause for the patient's right lower quadrant pain and nausea has not been found. The appendix is not seen but there is no evidence of appendicitis. Fleischner guidelines were followed. Electronically signed by: Nathanael Ballesteros MD 12/17/2023 09:43 AM EDT
[2023-12-17 08:00] VITALS: BP 116/76; BP 133/88; PULSE 73; PULSE 82; RESP 18; TEMP 36.4; O2SAT 96; O2SAT 97; BMI 35.6
--- NOTE | 2023-12-17 08:04 | ED.ABDPAIN ---
HPI - Abdominal Pain General Chief Complaint: Nausea/Vomiting/Diarrhea Stated Complaint: HOT FLASHES,NAUSEA,VOMITING PER EMS Time Seen by Provider: 12/17/23 07:57 Source: patient and EMS Mode of arrival: EMS Limitations: no limitations History of Present Illness ED Provider: Cortney GARCIAS HPI narrative: 38 year old female denies pmhx presents w/ nausea, vomiting and abd pain since last night. Also mild diffuse headache, feels like typical just less severe, no a/c trauma. Also reports after vomiting she feels lightheaded. Prep lightheadedness with positional changes. Reports she last ate tacos, Denies cp, sob, vision changes, dizziness, weakness, fevers, chills. Related Data Previous Rx's ?Medication ?Instructions ?Recorded ondansetron 4 mg disintegrating 4 mg PO Q8H PRN nausea and 06/21/23 tablet vomiting #10 tabs oxycodone 5 mg tablet 5 mg PO Q8H PRN severe pain (scale 06/21/23 score 7-10) #6 tabs cyclobenzaprine 5 mg tablet 5 mg PO TID PRN muscle spasm 7 08/06/23 days #21 tabs ondansetron 4 mg disintegrating 4 mg PO Q8H PRN nausea and 11/04/23 tablet vomiting #20 tabs ondansetron HCl 4 mg tablet 4 mg PO Q8H PRN nausea and 12/17/23 vomiting #14 tabs Allergies Allergy/AdvReac Type Severity Reaction Status Date / Time aspirin [ASPIRIN] Allergy Severe ANAPHYLAXIS Verified 12/17/23 08:07 bee pollen [BEE STINGS] Allergy Unknown ANAPHYLAXIS Verified 12/17/23 08:07 latex [LATEX] Allergy Unknown RASH Verified 12/17/23 08:07 Sulfa (Sulfonamide Allergy Unknown RASH Verified 12/17/23 08:07 Antibiotics) [SULFA (SULFONAMIDE ANTIBIOTICS)] medroxyprogesterone Allergy Unknown Verified 12/17/23 08:07 [From Depo-Provera] nitrofurantoin Allergy Anaphylaxis Verified 12/17/23 08:07 [From Macrobid] Review of Systems Review of Systems Yes all other systems are reviewed and are negative PMFSH Past Medical History Attestation statement: The following information was validated with the patient. Source: old records reviewed and nursing notes reviewed Medical History Hypothyroidism Gastroparesis Social History Social History Smoked in Last 30 Days: Yes Use of substances other than those prescribed or required for medical reasons: Yes Substance Use Type: Marijuana Advance Directives: No Advance Directives Information Provided: Yes Do you have a plan to hurt others: No Plan Patient : No Physical Exam ED Vital Signs: Vital Signs - 24 hr 12/17/23 08:00 12/17/23 10:45 12/17/23 11:35 Temperature 97.6 F Pulse Rate 73 56 58 Respiratory Rate 18 16 Blood Pressure 133/88 111/73 118/75 Pulse Oximetry 96 97 Oxygen Delivery Method Room Air Room Air 12/17/23 11:35 12/17/23 11:36 12/17/23 12:48 Temperature 98.3 F Pulse Rate 54 57 50 Respiratory Rate 18 Blood Pressure 124/83 125/79 119/77 Pulse Oximetry 97 Oxygen Delivery Method Room Air BMI result Body Mass Index 35.6 vss Appearance: Alert.? Oriented X3.? No acute distress.? Head: Normocephalic, atraumatic, no step-offs or deformities Eyes: Pupils equal, round and reactive to light.? CVS: Normal heart rate and rhythm.? Pulses normal.? Respiratory: No respiratory distress.? Breath sounds normal.? Abdomen: Soft and nontender.? Skin: Skin warm and dry.? Normal skin color.? Normal skin turgor.? Extremities: No lower extremity edema.? No calf ttp. 5/5 strength to bilateral upper and lower extremities Neuro: Oriented X 3.? No motor deficit.? No sensory deficit. CN 2-12 intact . Normal [id number], ambulating with steady gait normal coordination. Normal rapid alternating movements. NIH stroke scale 0 Course Reevaluation(s) Reevaluation #1: CBC unremarkable. Chemistry with no acute findings needing intervention. Normal lipase. Normal beta hCG. UA without infection. Urine negative. Patient's flu, COVID, RSV negative. CT abdomen and pelvis with the cause of the patient's right lower quadrant pain not identified. Appendix is not seen but there is no evidence of appendicitis. Orthostatic vital signs negative. Educated patient on diagnosis and treatment plan, answered all question, patient verbalizes understanding. At this time patient will be discharged home, advised to return with new or worsening symptoms. Educated on worrisome signs and symptoms and when to return. At this time I feel comfortable discharge home. Time: 13:34 Reevaluation #2: At time of discharge patient is tolerating p.o. solids and liquids. Has been educated on worsening signs and symptoms and when to return. Educated patient on diagnosis and treatment plan, answered all question, patient verbalizes understanding. At this time patient will be discharged home, advised to return with new or worsening symptoms. Educated on worrisome signs and symptoms and when to return. At this time I feel comfortable discharge home. Time: 13:34 Medical Decision Making Medical Decision Making [facility] Narrative: [id number] 38 year old female presents w/ abd pain (RLQ), nausea, vomiting, lightheadedness since last night PE RLQ tenderness on exam Hx and pe concerning for food poisoning, appendicitis, metabolic derangements or viral illness. Unlikely acute abdomen, kidney stone. Headache likely typical, unlikely meningitis, encephalitis, ich, storke, posterior stroke. Plan-labs, urine, Differential Diagnosis Differential Diagnoses: The differential diagnosis associated with the presentation includes Hx and pe concerning for food poisoning, appendicitis, metabolic derangements or viral illness. Unlikely acute abdomen, kidney stone. Headache likely typical, unlikely meningitis, encephalitis, ich, storke, posterior stroke. Admission/Observation Consideration of admission/observation: Escalation of care including admission/observation considered possible Lab Data [facility] Lab Attestation statement: I reviewed the patient's lab results. 12/17/23 08:10 12/17/23 08:10 Labs: Lab Results 12/17/23 Range/Units 08:10 WBC 8.6 (4.8-10.8) X10*3/uL RBC 4.54 (4.20-5.50) X10*6/uL Hgb 13.1 (12.0-16.0) g/dl Hct 39.3 (37.0-47.0) % MCV 86.6 (80.0-98.0) fL MCH 28.9 (27.0-33.0) pg MCHC 33.3 (31.0-35.0) g/dl RDW 13.3 (11.0-16.0) % Plt Count 386 (160-400) X10*3/uL MPV 9.1 L (9.4-12.3) fL Immature Gran % (Auto) 0.2 (0.0-0.4) % Neut % (Auto) 63.7 (45-73) % Lymph % (Auto) 28.1 (20-40) % [place] % (Auto) 5.9 (2-11) % Eos % (Auto) 1.9 (0-4) % Baso % (Auto) 0.2 (0-2) % Lymph # (Auto) 2.4 (1.2-4.9) X10*3/uL [place] # (Auto) 0.5 (0.1-1.2) X10*3/uL Eos # (Auto) 0.2 (0.0-0.4) X10*3/uL Baso # (Auto) 0.0 (0.0-0.2) X10*3/uL Abs Immat Gran (auto) 0.02 (0.00-0.03) X10*3/uL Absolute Neuts (auto) 5.5 (2.0-8.3) x10*3/uL Absolute Nucleated RBC 0.000 (0.0-0.012) X10*3/uL Nucleated RBC % (auto) 0.0 (0.0-0.2) /100WBC Sodium 140 (135-145) mmol/L Potassium 3.9 (3.3-5.1) mmol/L Chloride 112 H (96-108) mmol/L Carbon Dioxide 21 L (22-29) mmol/L Anion Gap 11 L (12-20) BUN 10 (9-16) mg/dL Creatinine 0.81 (0.5-1.4) mg/dL Estim Creat Clear Calc 94.4 Estimated GFR > 60 Random Glucose 101 (60-115) mg/dL Calcium 9.1 (8.4-10.2) mg/dL Magnesium 2.0 (1.6-2.6) mg/dL Total Bilirubin 0.3 (0.0-1.0) mg/dL AST 16 (5-31) U/L ALT 20 (0-31) U/L Alkaline Phosphatase 87 (39-117) U/L Total Protein 7.0 (6.5-8.0) g/dL Albumin 4.1 (3.5-5.0) g/dL Lipase 31 (8-78) U/L Beta HCG, Quant < 2 mIU/mL Urine Color Yellow Urine Appearance Clear Urine pH 7.0 (5.0-9.0) Ur Specific [place] <= 1.005 (1.005-1.025) Urine Protein Negative (Neg-Trace) mg/dL Urine Glucose (UA) Negative (Negative) mg/dL Urine Ketones Negative (Negative) mg/dL Urine Blood Negative (Negative) Urine Nitrite Negative (Negative) Ur Leukocyte Esterase Negative (Negative) Urine Test NEGATIVE (NEGATIVE) Influenza Type A (PCR) NEGATIVE (Negative) Influenza Type B (PCR) NEGATIVE (Negative) RSV RNA Qual (PCR) NEGATIVE (Negative) SARS-CoV-2 RNA (RT-PCR) NEGATIVE (Negative) Independent Interpretation I performed an independent interpretation of an: CT Scan (CT/CT abdomen pelvis w IV con IMPRESSION: A cause for the patient's right lower quadrant pain and nausea has not been found. The appendix is not seen but there is no evidence of appendicitis. Fleischner guidelines were followed.) Radiology Impression Discussion of test interpretation with radiology: I have reviewed the radiologist's reading. External Record Review External record reviewed: Office record, Outpatient record and Prior outpatient labs Prescription Management I considered prescription management with: Other (Zofran.) Medications Administered Discontinued Medications Generic Name Dose Route Start Last Admin Trade Name Freq PRN Reason Stop Dose Admin Acetaminophen 650 mg 12/17/23 08:08 12/17/23 08:43 Acetaminophen 325 Mg Tablet PO 12/17/23 08:09 650 mg ONCE ONE Administration Diphenhydramine HCl 25 mg 12/17/23 12:01 12/17/23 12:29 Diphenhydramine Hcl 25 Mg Capsule PO 12/17/23 12:02 25 mg ONCE ONE Administration Iohexol 85 ml 12/17/23 09:02 12/17/23 09:02 Iohexol 350 Mg/Ml 75 Ml Infus..Btl IV 12/17/23 09:03 85 ml ONCE ONE Administration Metoclopramide HCl 10 mg 12/17/23 12:01 12/17/23 12:29 Metoclopramide Hcl 10 Mg Tablet PO 12/17/23 12:02 10 mg ONCE ONE Administration Morphine Sulfate 4 mg 12/17/23 10:29 12/17/23 10:47 Morphine Sulfate 4 Mg/Ml Cartridge IVPUSH 12/17/23 10:30 4 mg ONCE ONE Administration Protocol Discharge Plan Discharge Clinical Impression: Nausea & vomiting, Abdominal pain Patient Disposition: Still a Patient Instructions: Acute Nausea and Vomiting (ED), Acute Abdominal Pain (ED) Additional Instructions: Take your medications as prescribed. If you were prescribed antibiotics today, it is important that you take your medication to their entirety, do not skip any doses, do not finish them early. Follow-up with your primary care provider this week. Return to the emergency department with new or worsening symptoms. Such as fevers, chills, chest pain, shortness of breath, nausea, vomiting, dizziness, headache, vision changes, lethargy In case of emergency call 911 If you experience any new or worsening symptoms such as inability to eat, worsening pain changes in quality or quantity of pain, fevers, chills please return immediately to be evaluated. CT/CT abdomen pelvis w IV con IMPRESSION: A cause for the patient's right lower quadrant pain and nausea has not been found. The appendix is not seen but there is no evidence of appendicitis. Fleischner guidelines were followed. Prescriptions: New ondansetron HCl 4 mg tablet 4 mg PO Q8H PRN (Reason: nausea and vomiting) Qty: 14 0RF No Action ondansetron 4 mg tablet,disintegrating 4 mg PO Q8H PRN (Reason: nausea and vomiting) Qty: 10 0RF oxycodone 5 mg tablet 5 mg PO Q8H PRN (Reason: severe pain (scale score 7-10)) Qty: 6 0RF Rx Instructions: Partial Fill upon patient request. cyclobenzaprine 5 mg tablet 5 mg PO TID PRN (Reason: muscle spasm) 7 Days Qty: 21 0RF ondansetron 4 mg tablet,disintegrating 4 mg PO Q8H PRN (Reason: nausea and vomiting) Qty: 20 0RF Referrals: Adolfo Hooker MD [Primary Care Provider] - 2 days Stand Alone Forms: Work/School Release Print Language: Azeri
[2023-12-17 08:16] LABS: MANUAL DIFF FLAG NO
[2023-12-17 08:19] LABS: Appearance Urine Clear; Basophils Percent Auto 0.2 % (0-2); Color Urine Yellow; Eosinophils Absolute Auto 0.2 X10*3/uL (0.0-0.4); Eosinophils Percent Auto 1.9 % (0-4); Glucose Urine UA Negative (Negative); Hematocrit 39.3 % (37.0-47.0); Hemoglobin 13.1 g/dl (12.0-16.0); Imm Gran Abs Auto 0.02 X10*3/uL (0.00-0.03); Imm Gran Pct Auto 0.2 % (0.0-0.4); Leukocyte Esterase Urine Negative (Negative); Lymphocytes Absolute Auto 2.4 X10*3/uL (1.2-4.9); Lymphocytes Percent Auto 28.1 % (20-40); Mean Corpuscular HGB Conc 33.3 g/dl (31.0-35.0); Mean Corpuscular Hemoglobin 28.9 pg (27.0-33.0); Mean Corpuscular Volume 86.6 fL (80.0-98.0); Mean Platelet Volume 9.1 fL (9.4-12.3); Monocytes Absolute Auto 0.5 X10*3/uL (0.1-1.2); Monocytes Percent Auto 5.9 % (2-11); Neutrophils Absolute Auto 5.5 x10*3/uL (2.0-8.3); Neutrophils Percent Auto 63.7 % (45-73); Nitrite Urine Negative (Negative); Platelet Count 386 X10*3/uL (160-400); Red Blood Count 4.54 X10*6/uL (4.20-5.50); Red Cell Distribution Width 13.3 % (11.0-16.0); Specific Gravity - Urine <= 1.005 (1.005-1.025); Urine Blood Negative (Negative); Urine Ketones Negative (Negative); Urine Protein Negative (Neg-Trace); White Blood Count 8.6 X10*3/uL (4.8-10.8)
[2023-12-17 08:23] LABS: UPreg QC Valid YES; Urine Pregnancy NEGATIVE (NEGATIVE)
[2023-12-17 08:42] LABS: Alanine Aminotransferase 20 U/L (0-31); Albumin Level 4.1 g/dL (3.5-5.0); Alkaline Phosphatase 87 U/L (39-117); Anion Gap 11 (12-20); Aspartate Amino Transferase 16 U/L (5-31); Bilirubin Total 0.3 mg/dL (0.0-1.0); Blood Urea Nitrogen 10 mg/dL (9-16); Calcium 9.1 mg/dL (8.4-10.2); Carbon Dioxide 21 mmol/L (22-29); Chloride 112 mmol/L (96-108); Creatinine Clr Calc Pharmacy 94.4; Estimated Glomerular Filt Rate > 60; Glucose Random 101 mg/dL (60-115); Lipase 31 U/L (8-78); Potassium 3.9 mmol/L (3.3-5.1); Sodium 140 mmol/L (135-145)
[2023-12-17] MEDS: Acetaminophen 325 MG TABLET 650 MG PO (08:43)
[2023-12-17 08:53] LABS: HCG Quantitative < 2 mIU/mL
[2023-12-17 08:57] LABS: Influenza A PCR NEGATIVE (Negative); Influenza B PCR NEGATIVE (Negative); Resp Syncy Virus RNA Qual PCR NEGATIVE (Negative); SARS COV2 PCR INHOUSE NEGATIVE (Negative)
[2023-12-17] MEDS: iohexoL 350 MG/ML 75 ML INFUS..BTL 85 ML IV (09:02)
[2023-12-17 10:45] VITALS: BP 111/73; PULSE 56; RESP 16; O2SAT 97
[2023-12-17] MEDS: Morphine Sulfate 4 MG/ML CARTRIDGE IVPUSH (10:47)
[2023-12-17 11:35] VITALS: BP 118/75; BP 124/83; PULSE 54; PULSE 58
[2023-12-17 11:36] VITALS: BP 125/79; PULSE 57
[2023-12-17] MEDS: diphenhydrAMINE HCL 25 MG CAPSULE PO (12:29)
[2023-12-17] MEDS: Metoclopramide HCl 10 MG TABLET PO (12:29)
[2023-12-17 12:48] VITALS: BP 119/77; PULSE 50; RESP 18; TEMP 36.8; O2SAT 97
[2023-12-17 13:48] VITALS: BP 119/77; PULSE 50; RESP 18; TEMP 36.8; O2SAT 97
== END 2023-12-17 13:49 | disposition home or self-care (01) ==
PROVIDERS: Physician Assistant; Emergency Provider Emergency Medicine Emergency Medical Services; PCP Internal Medicine
DX: R11.2 Nausea with vomiting, unspecified (principal); R10.9 Unspecified abdominal pain; R51.9 Headache, unspecified; R10.2 Pelvic and perineal pain; Z03.818 Encounter for observation for suspected exposure to other biological agents ruled out; Z79.899 Other long term (current) drug therapy
CPT/HCPCS: 0241U; 36415; 74177; 80053; 81003; 81025; 83690; 83735; 84702; 85025; 96374; 99284; J2270; Q9967

== ENCOUNTER 2023-12-25 06:46 | Emergency (ER) | payer OTHER, SELFPAY ==
--- NOTE | ~2023-12-25 | CT_ITS ---
EXAMINATION: CT ABDOMEN AND PELVIS WITH CONTRAST CLINICAL INFORMATION: Upper abdominal pain COMPARISON: CT abdomen from 12/17/2023 TECHNIQUE: Multidetector volumetric images were obtained from the superior aspect of the liver through the pubic symphysis following administration 85 mL of Omnipaque 350 intravenous contrast. Sagittal and coronal reformatted images were obtained on the technologist's workstation. Oral contrast: No This CT examination was performed using dose optimization techniques as appropriate, variously including the following: *Automated exposure control *Adjustment of mA and/or kV according to patient size (this includes techniques or standardized protocols for targeted exams where dose is matched to indication/reason for exam; i.e. extremities or head) *Use of iterative reconstruction technique DLP: 623.3 mGy-cm FINDINGS: LUNG BASES: Bibasilar atelectasis. No pneumothorax. No large pleural effusion. LIVER, GALLBLADDER, AND BILIARY TREE: Liver is mildly enlarged. Hypodense focus along the falciform ligament suggesting a region of focal fatty infiltration. No focal hepatic lesion or biliary ductal dilatation is present. The gallbladder is unremarkable with no evidence of radiopaque gallstones, gallbladder wall thickening, or obvious pericholecystic inflammatory changes. PANCREAS: Unremarkable. SPLEEN: Unremarkable. 1.3 cm splenule. ADRENAL GLANDS: Unremarkable. KIDNEYS AND URETERS: The kidneys are normal in size, shape, and attenuation. No hydronephrosis, hydroureter, or calculi seen. No perinephric stranding. BLADDER: Unremarkable. GASTROINTESTINAL TRACT: The small and large bowel are unremarkable. The appendix is unremarkable. ABDOMINAL WALL: No significant hernia is appreciated. LYMPH NODES: No enlarged lymph nodes. Size criteria. VASCULAR: Abdominal aorta is nonaneurysmal. PELVIC VISCERA: Anteverted uterus. Fluid in the pelvis, potentially physiologic. Correlation with phase of menstruation. Dominant follicle involving the right ovary. OSSEOUS STRUCTURES: Unremarkable. CT/CT abdomen pelvis w IV con IMPRESSION: 1. No acute process of the abdomen or pelvis identified. 2. Liver is mildly enlarged. Hypodense focus along the falciform ligament suggesting a region of focal fatty infiltration. 3. 1.3 cm splenule. 4. Fluid in the pelvis, potentially physiologic. Correlation with phase of menstruation. Electronically signed by: Chelsey Rutherford MD 12/25/2023 10:57 AM EDT
[2023-12-25 06:48] VITALS: BP 111/73; PULSE 92; RESP 16; TEMP 36.2; O2SAT 96; BMI 36.4
--- NOTE | 2023-12-25 07:05 | ED.NAVMDI ---
HPI - Nausea/Vomiting/Diarrhea General Chief complaint: Abdominal Pain Stated complaint: Vomiting coffee grounds Time Seen by Provider: 12/25/23 06:51 Source: patient Mode of arrival: ambulatory Limitations: no limitations History of Present Illness HPI Narrative: This is a 38 years old patient with history of gastroparesis, history of opiate use disorder in the past, presented to emergency department complaining of vomiting. She stated this morning and vomited few times the vomiting was coffee-ground material. Denies any diarrhea, denies any abdominal pain. MD elicited complaint: nausea and vomiting Pertinent past history: anorexia Onset (ago): hour(s) (3) Description of vomiting: watery and coffee grounds Associated nausea: Yes Associated abdominal pain: No Location of pain: none Exacerbating factors: none Relieving factors: none Associated symptoms: denies other symptoms Related Data Previous Rx's ?Medication ?Instructions ?Recorded ondansetron 4 mg disintegrating 4 mg PO Q8H PRN nausea and 06/21/23 tablet vomiting #10 tabs oxycodone 5 mg tablet 5 mg PO Q8H PRN severe pain (scale 06/21/23 score 7-10) #6 tabs cyclobenzaprine 5 mg tablet 5 mg PO TID PRN muscle spasm 7 08/06/23 days #21 tabs ondansetron 4 mg disintegrating 4 mg PO Q8H PRN nausea and 11/04/23 tablet vomiting #20 tabs ondansetron HCl 4 mg tablet 4 mg PO Q8H PRN nausea and 12/17/23 vomiting #14 tabs Allergies Allergy/AdvReac Type Severity Reaction Status Date / Time aspirin [ASPIRIN] Allergy Severe ANAPHYLAXIS Verified 12/25/23 06:50 bee pollen [BEE STINGS] Allergy Unknown ANAPHYLAXIS Verified 12/25/23 06:50 latex [LATEX] Allergy Unknown RASH Verified 12/25/23 06:50 Sulfa (Sulfonamide Allergy Unknown RASH Verified 12/25/23 06:50 Antibiotics) [SULFA (SULFONAMIDE ANTIBIOTICS)] medroxyprogesterone Allergy Unknown Verified 12/25/23 06:50 [From Depo-Provera] nitrofurantoin Allergy Anaphylaxis Verified 12/25/23 06:50 [From Macrobid] Review of Systems ENT: Reports system reviewed and no additional complaints, except as documented Cardiovascular: Cardiovascular: Reports no additional cardiovascular complaints Respiratory: Respiratory: Reports no additional respiratory complaints Gastrointestinal: Gastrointestinal: Reports nausea and Reports vomiting [facility] Past Medical History Attestation statement: The following information was validated with the patient. Medical History Hypothyroidism Gastroparesis Social History Social History Substance Use Type: Marijuana Advance Directives: No Advance Directives Information Provided: No Do you have a plan to hurt others: No Plan Physical Exam Vital Signs: Vital Signs: Last Vital Signs Temp 98.4 F 12/25/23 12:40 Pulse 69 12/25/23 12:40 Resp 14 12/25/23 12:40 BP 110/67 12/25/23 12:40 Pulse Ox 96 12/25/23 12:40 O2 Del Method Room Air 12/25/23 12:40 BMI result Body Mass Index 36.4 She looks well she is not in distress Const: General: cooperative Nutritional Appearance: average body habitus Orientation/consciousness: patient oriented x3 Limitations: no limitations HEENT: Head: Yes normal to inspection General nose exam: Normal external nose present Face and sinus: Yes normal facial exam Mouth: Normal oral and palatal mucosa present Neck: Neck: Yes normal visual inspection and Yes full ROM Chest: Chest palpation & inspection: normal inspection of the chest Resp: Effort & Inspection: normal respiratory effort Auscultation: clear to auscultation bilaterally Cardio: Jugular venous distension: no JVD Rate: regular rate Rhythm: regular rhythm GI: Inspection: Yes normal to inspection Palpation (GI): Soft to palpation, not firm, nontender and no guarding Skin: General skin exam: no rashes or lesions noted and elasticity normal Lesions: no lesions Rashes: no rashes Neuro: General: patient oriented x3 Cranial nerves: Yes CN's II-XII intact bilaterally Course Reevaluation(s) Reevaluation #1: Doing better, labs within normal limits CT okay will discharge Medications Administered Discontinued Medications Generic Name Dose Route Start Last Admin Trade Name Freq PRN Reason Stop Dose Admin Diphenhydramine HCl 25 mg 12/25/23 07:10 12/25/23 07:38 Diphenhydramine Hcl 50 Mg/Ml Vial IVPUSH 12/25/23 07:11 25 mg ONCE ONE Administration Sodium Chloride 1,000 mls @ 999 mls/hr 12/25/23 07:15 12/25/23 08:47 Ns IV 12/25/23 08:15 Infused .Q1H1M JENNIE Infusion Iohexol 100 ml 12/25/23 08:44 12/25/23 08:45 Iohexol 350 Mg/Ml 100 Ml Infus..Btl IV 12/25/23 08:45 85 ml ONCE ONE Administration Metoclopramide HCl 10 mg 12/25/23 07:09 12/25/23 07:38 Metoclopramide Hcl 10 Mg/2 Ml Vial IVPUSH 12/25/23 07:10 10 mg ONCE ONE Administration Pantoprazole Sodium 40 mg 12/25/23 07:10 12/25/23 07:38 Pantoprazole Sodium 40 Mg/10 Ml Vial IVPUSH 12/25/23 07:11 40 mg ONCE ONE Administration Medical Decision Making Medical Decision Making [facility] Narrative: Patient presented complaining of fecal material in place an IV check labs and reassess Differential Diagnosis Differential Diagnoses: The differential diagnosis associated with the presentation includes Gastroparesis/gastroenteritis/peptic ulcer disease Admission/Observation Consideration of admission/observation: Escalation of care including admission/observation considered Lab Data [facility] Lab Attestation statement: I reviewed the patient's lab results. 12/25/23 07:36 12/25/23 07:36 Labs: Lab Results 12/25/23 12/25/23 Range/Units 07:36 08:07 WBC 7.8 (4.8-10.8) X10*3/uL RBC 4.44 (4.20-5.50) X10*6/uL Hgb 13.1 (12.0-16.0) g/dl Hct 38.4 (37.0-47.0) % MCV 86.5 (80.0-98.0) fL MCH 29.5 (27.0-33.0) pg MCHC 34.1 (31.0-35.0) g/dl RDW 13.3 (11.0-16.0) % Plt Count 370 (160-400) X10*3/uL MPV 9.2 L (9.4-12.3) fL Immature Gran % (Auto) 0.1 (0.0-0.4) % Neut % (Auto) 67.0 (45-73) % Lymph % (Auto) 24.7 (20-40) % Mingo % (Auto) 6.0 (2-11) % Eos % (Auto) 1.9 (0-4) % Baso % (Auto) 0.3 (0-2) % Lymph # (Auto) 1.9 (1.2-4.9) X10*3/uL Mingo # (Auto) 0.5 (0.1-1.2) X10*3/uL Eos # (Auto) 0.2 (0.0-0.4) X10*3/uL Baso # (Auto) 0.0 (0.0-0.2) X10*3/uL Abs Immat Gran (auto) 0.01 (0.00-0.03) X10*3/uL Absolute Neuts (auto) 5.3 (2.0-8.3) x10*3/uL Absolute Nucleated RBC 0.000 (0.0-0.012) X10*3/uL Nucleated RBC % (auto) 0.0 (0.0-0.2) /100WBC Sodium 140 (135-145) mmol/L Potassium 4.0 (3.3-5.1) mmol/L Chloride 110 H (96-108) mmol/L Carbon Dioxide 22 (22-29) mmol/L Anion Gap 12 (12-20) BUN 13 (9-16) mg/dL Creatinine 0.83 (0.5-1.4) mg/dL Estim Creat Clear Calc 93.2 Estimated GFR > 60 Random Glucose 104 (60-115) mg/dL Calcium 9.2 (8.4-10.2) mg/dL Total Bilirubin 0.2 (0.0-1.0) mg/dL Direct Bilirubin < 0.2 (0.0-0.5) mg/dL AST 23 (5-31) U/L ALT 21 (0-31) U/L Alkaline Phosphatase 85 (39-117) U/L Total Protein 6.9 (6.5-8.0) g/dL Albumin 4.1 (3.5-5.0) g/dL Lipase 30 (8-78) U/L Beta HCG, Quant < 2 mIU/mL Urine Color Yellow Urine Appearance Cloudy Urine pH >= 9.0 (5.0-9.0) Ur Specific Thompson 1.025 (1.005-1.025) Urine Protein 30 (1+) H (Neg-Trace) mg/dL Urine Glucose (UA) Negative (Negative) mg/dL Urine Ketones Trace (Negative) mg/dL Urine Blood Negative (Negative) Urine Nitrite Negative (Negative) Ur Leukocyte Esterase Trace H (Negative) Urine RBC 0-2 (0-2) /HPF Urine WBC 0-5 (0-5) /HPF Ur Squamous Epith Cells 6-10 (0-2) /HPF Urine Bacteria Trace (None Seen) Hyaline Casts 0-2 (0-2) /LPF Independent Interpretation I performed an independent interpretation of an: CT Scan Radiology Impression Discussion of test interpretation with radiology: I have reviewed the radiologist's reading. Discharge Plan Discharge Clinical Impression: Abdominal pain Patient Disposition: Home, Self-Care Instructions: Abdominal Pain (ED) Additional Instructions: Double your omeprazole 20 mg twice a day follow-up with cost accountant we gave you the number of Dr. Menendez Prescriptions: No Action ondansetron HCl 4 mg tablet 4 mg PO Q8H PRN (Reason: nausea and vomiting) Qty: 14 0RF ondansetron 4 mg tablet,disintegrating 4 mg PO Q8H PRN (Reason: nausea and vomiting) Qty: 10 0RF oxycodone 5 mg tablet 5 mg PO Q8H PRN (Reason: severe pain (scale score 7-10)) Qty: 6 0RF Rx Instructions: Partial Fill upon patient request. cyclobenzaprine 5 mg tablet 5 mg PO TID PRN (Reason: muscle spasm) 7 Days Qty: 21 0RF ondansetron 4 mg tablet,disintegrating 4 mg PO Q8H PRN (Reason: nausea and vomiting) Qty: 20 0RF Referrals: Robert Menendez MD [Physician] - Stand Alone Forms: Work/School Release Interventions: ED Discharge Assessment Last Done: 12/25/23 12:40 Discharge Date/Time: 12/25/23 12:41 Print Language: Austrian
[2023-12-25] MEDS: Metoclopramide HCl 10 MG/2 ML VIAL IVPUSH (07:38)
[2023-12-25] MEDS: 0.9 % Sodium Chloride 1,000 ML 999 ML IV (07:38)
[2023-12-25] MEDS: diphenhydrAMINE HCL 50 MG/ML VIAL 25 MG IVPUSH (07:38)
[2023-12-25] MEDS: Pantoprazole Sodium 40 MG/10 ML VIAL IVPUSH (07:38)
--- NOTE | 2023-12-25 07:38 | PC.NURSE ---
20G to LAC. Tolerated well. Medicated per MAR
[2023-12-25 07:47] LABS: MANUAL DIFF FLAG NO
[2023-12-25 07:48] LABS: Basophils Percent Auto 0.3 % (0-2); Eosinophils Absolute Auto 0.2 X10*3/uL (0.0-0.4); Eosinophils Percent Auto 1.9 % (0-4); Hematocrit 38.4 % (37.0-47.0); Hemoglobin 13.1 g/dl (12.0-16.0); Imm Gran Abs Auto 0.01 X10*3/uL (0.00-0.03); Imm Gran Pct Auto 0.1 % (0.0-0.4); Lymphocytes Absolute Auto 1.9 X10*3/uL (1.2-4.9); Lymphocytes Percent Auto 24.7 % (20-40); Mean Corpuscular HGB Conc 34.1 g/dl (31.0-35.0); Mean Corpuscular Hemoglobin 29.5 pg (27.0-33.0); Mean Corpuscular Volume 86.5 fL (80.0-98.0); Mean Platelet Volume 9.2 fL (9.4-12.3); Monocytes Absolute Auto 0.5 X10*3/uL (0.1-1.2); Neutrophils Absolute Auto 5.3 x10*3/uL (2.0-8.3); Platelet Count 370 X10*3/uL (160-400); Red Blood Count 4.44 X10*6/uL (4.20-5.50); Red Cell Distribution Width 13.3 % (11.0-16.0); White Blood Count 7.8 X10*3/uL (4.8-10.8)
[2023-12-25 08:02] LABS: Alanine Aminotransferase 21 U/L (0-31); Albumin Level 4.1 g/dL (3.5-5.0); Alkaline Phosphatase 85 U/L (39-117); Anion Gap 12 (12-20); Aspartate Amino Transferase 23 U/L (5-31); Bilirubin Direct < 0.2 mg/dL (0.0-0.5); Bilirubin Total 0.2 mg/dL (0.0-1.0); Blood Urea Nitrogen 13 mg/dL (9-16); Calcium 9.2 mg/dL (8.4-10.2); Carbon Dioxide 22 mmol/L (22-29); Chloride 110 mmol/L (96-108); Creatinine Clr Calc Pharmacy 93.2; Estimated Glomerular Filt Rate > 60; Glucose Random 104 mg/dL (60-115); Lipase 30 U/L (8-78); Sodium 140 mmol/L (135-145); Total Protein 6.9 g/dL (6.5-8.0)
[2023-12-25 08:17] LABS: Appearance Urine Cloudy; Color Urine Yellow; Glucose Urine UA Negative (Negative); Leukocyte Esterase Urine Trace (Negative); Nitrite Urine Negative (Negative); PH >= 9.0 (5.0-9.0); Specific Gravity - Urine 1.025 (1.005-1.025); UMIC TRIGGER UACC YES; Urine Blood Negative (Negative); Urine Ketones Trace mg/dL (Negative); Urine Protein 30 (1+) mg/dL (Neg-Trace)
[2023-12-25 08:33] LABS: Bacteria Urine Trace (None Seen); Hyaline Casts Urine 0-2 /LPF (0-2); RBC Urine 0-2 /HPF (0-2); WBC Urine 0-5 /HPF (0-5)
[2023-12-25] MEDS: iohexoL 350 MG/ML 100 ML INFUS..BTL IV (08:45)
[2023-12-25 09:08] LABS: HCG Quantitative < 2 mIU/mL
[2023-12-25 10:18] VITALS: BP 123/77; PULSE 54; RESP 14; TEMP 36.8; O2SAT 97
[2023-12-25 12:22] VITALS: BP 110/67; PULSE 69; RESP 14; TEMP 36.9; O2SAT 96
[2023-12-25 12:40] VITALS: BP 110/67; PULSE 69; RESP 14; TEMP 36.9; O2SAT 96
== END 2023-12-25 12:41 | disposition home or self-care (01) ==
PROVIDERS: Emergency Provider Emergency Medicine; PCP Internal Medicine
DX: R11.2 Nausea with vomiting, unspecified (principal); R10.2 Pelvic and perineal pain; Z79.899 Other long term (current) drug therapy
CPT/HCPCS: 36415; 74177; 80048; 80076; 81001; 83690; 84702; 85025; 96361; 96374; 96375; 99283; 99284; J1200; J2470; J2765; Q9967

== ENCOUNTER 2024-04-11 09:13 | Emergency (ER) | payer MEDICAID, SELFPAY ==
--- NOTE | ~2024-04-11 | XR_ITS ---
EXAMINATION: XR CHEST CLINICAL INFORMATION: cough COMPARISON: None available. TECHNIQUE: 2 views of the chest were obtained. FINDINGS: No significant abnormality is noted involving the heart, lungs, mediastinum, bony thorax or soft tissues. XR/XR chest 2V IMPRESSION: Unremarkable chest examination. Electronically signed by: Elio Velasquez MD 04/11/2024 10:15 AM [facility]
[2024-04-11 09:21] VITALS: BP 121/83; PULSE 110; RESP 22; TEMP 36.9; O2SAT 100; BMI 33.5
--- NOTE | 2024-04-11 09:22 | ED.GENADULT ---
HPI - General Adult General Chief complaint: Upper Respiratory Symptoms Stated complaint: Congestion, fever Time Seen by Provider: 04/11/24 09:29 Source: patient Mode of arrival: ambulatory Limitations: no limitations History of Present Illness ED Provider: Celia Edwards PA-C HPI narrative: 39-year-old female with a history of former heroin use, now sober, history of mental health disorder, active smoker who presents to the ER for evaluation of chest congestion, cough, fevers, body aches, headaches and not feeling well for the last 5 days. She has had known COVID exposure at work. She reports having COVID 8 times. She has had abnormal chest imaging in his due to get pulmonary function test however she keeps getting recurrent upper respiratory track and pulmonary infections. She is down to 3 cigarettes per day. She reports intermittent fevers, chest pain with coughing and body aches. She did not get her flu shot this year. She denies any nausea, vomiting, diarrhea, abdominal pain. She has been taking Motrin and Tylenol along with cough medication at home. MD complaint: Cough, URI symptom Onset (ago): day(s) (5) Location: head and chest Radiation: non-radiation Severity: moderate Quality: aching Pain Consistency: constant Relieving factors: medication and rest Exacerbating factors: movement Associated symptoms: cough, fever/chills, headaches, loss of appetite, malaise and weakness Treatments prior to arrival: none Related Data Previous Rx's ?Medication ?Instructions ?Recorded ondansetron 4 mg disintegrating 4 mg PO Q8H PRN nausea and 06/21/23 tablet vomiting #10 tabs oxycodone 5 mg tablet 5 mg PO Q8H PRN severe pain (scale 06/21/23 score 7-10) #6 tabs cyclobenzaprine 5 mg tablet 5 mg PO TID PRN muscle spasm 7 08/06/23 days #21 tabs ondansetron 4 mg disintegrating 4 mg PO Q8H PRN nausea and 11/04/23 tablet vomiting #20 tabs ondansetron HCl 4 mg tablet 4 mg PO Q8H PRN nausea and 12/17/23 vomiting #14 tabs albuterol sulfate 90 mcg/actuation 1 inh inhalation QID PRN shortness 04/11/24 aerosol inhaler of breath or wheezing #6.7 grams Allergies Allergy/AdvReac Type Severity Reaction Status Date / Time aspirin [ASPIRIN] Allergy Severe ANAPHYLAXIS Verified 04/11/24 09:25 bee pollen [BEE STINGS] Allergy Unknown ANAPHYLAXIS Verified 04/11/24 09:25 latex [LATEX] Allergy Unknown RASH Verified 04/11/24 09:25 Sulfa (Sulfonamide Allergy Unknown RASH Verified 04/11/24 09:25 Antibiotics) [SULFA (SULFONAMIDE ANTIBIOTICS)] medroxyprogesterone Allergy Unknown Verified 04/11/24 09:25 [From Depo-Provera] nitrofurantoin Allergy Anaphylaxis Verified 04/11/24 09:25 [From Macrobid] Review of Systems Review of Systems: Yes all other systems are reviewed and are negative PMFSH Past Medical History Medical History Hypothyroidism Gastroparesis Social History Social History Substance Use Type: Marijuana Advance Directives: No Advance Directives Information Provided: No Do you have a plan to hurt others: No Plan Physical Exam ED Vital Signs: Vital Signs - 24 hr 04/11/24 09:21 Temperature 98.5 F Pulse Rate 110 H Respiratory Rate 22 H Blood Pressure 121/83 Pulse Oximetry 100 Oxygen Delivery Method Room Air BMI result Body Mass Index 33.5 Appearance: Alert. Oriented X3. No acute distress. Head: normocephalic, atraumatic. Eyes: Pupils equal, round and reactive to light. ENT: Pharynx normal. No tonsillar swelling or exudate. Neck: Normal inspection. Neck supple. CVS: Normal heart rate and rhythm. Pulses normal. Respiratory: No respiratory distress. Breath sounds coarse the bilateral bases, no overt wheezing or rhonchi. Abdomen: Soft and nontender. +BS x4 Skin: Skin warm and dry. Normal skin color. Normal skin turgor. No rashes. Extremities: No lower extremity edema. No joint swelling. Neuro/psych: Oriented X 3. No motor deficit. No sensory deficit. CN II-XII intact. Normal speech and cognition. Course Course Course Narrative: RME performed by Nicolette Zee PA-C. Patient is a 39 year old assigned female at presenting to the emergency department with congestion, chest congestion, fever, headache, and feeling generally unwell. Patient states over the last couple of days she has felt generally unwell with congestion, fever, chest congestion, and a headache. Detailed physical exam and review of systems are deferred to the chief engineer's helper. Imaging and swabs ordered. Patient placed back in the waiting room pending room availability and results. Procedures Smoking Cessation Time Spent Discussing Smoking Cessation w/Patient (min): 5 Patient Acknowledges Need for Cessation: Yes Medical Decision Making Medical Decision Making MDM Narrative: 39-year-old female, active smoker, history of recurrent COVID infections, mental health issues, former IV drug user who presents to the ER for evaluation of chest congestion, fevers, body aches for the last 5 days. Known COVID exposure at work. On arrival to the ER she is slightly tachycardic with heart rates in the low 100s. She appears ill. She is saturating well on room air, speaking in complete sentences, no respiratory distress. Chest x-ray done today shows no focal infiltrate or effusion, no pneumonia. She tested positive for influenza A. She did not get vaccinated for the flu this year. She is not in the treatment window for Tamiflu. We discussed importance of smoking cessation at length. We discussed other supportive care measures for the flu. At this time she is stable for discharge home with p.r.n. albuterol, outpatient follow-up with her PCP and Pulmonary. She will continue to quit smoking. Stable for discharge home Differential Diagnosis Differential Diagnoses: The differential diagnosis associated with the presentation includes strep, covid, flu, rsv, other viral syndrome, COPD, bronchitis, pneumonia Lab Data [facility] Lab Attestation statement: I reviewed the patient's lab results. Labs: Lab Results 04/11/24 Range/Units 09:32 Influenza Type A (PCR) POSITIVE A (Negative) Influenza Type B (PCR) NEGATIVE (Negative) RSV RNA Qual (PCR) NEGATIVE (Negative) SARS-CoV-2 RNA (RT-PCR) NEGATIVE (Negative) Independent Interpretation I performed an independent interpretation of an: Plain X-Ray Interpretation: Chest x-ray without focal infiltrate or effusion Radiology Impression Discussion of test interpretation with radiology: I have reviewed the radiologist's reading. External Record Review External record reviewed: Outpatient record, Prior outpatient labs and Prior outpatient radiology Prescription Management I considered prescription management with: Pain Medication and Antiviral Chronic Conditions Patient?s care impacted by: Other (smoker) Critical Care Time Critical Care Time Critical Care Time: No Discharge Plan Discharge Clinical Impression: Influenza Patient Disposition: Home, Self-Care Instructions: Influenza (DC) Additional Instructions: You tested positive for Influenza A. Your chest x-ray did not show any pneumonia. Rest and drink plenty of fluids. Use the prescribed inhaler as needed for shortness of breath and wheezing. Continue to work to quit cigarettes as discussed Recommend following up with Pulmonary for official pulmonary function test and further evaluation of your lungs. Follow-up with your doctor. If you develop new or worsening symptoms call 911 or come back to the ER for further evaluation. Prescriptions: New albuterol sulfate 90 mcg/actuation HFA aerosol inhaler 1 inh inhalation QID PRN (Reason: shortness of breath or wheezing) Qty: 6.7 0RF No Action ondansetron HCl 4 mg tablet 4 mg PO Q8H PRN (Reason: nausea and vomiting) Qty: 14 0RF ondansetron 4 mg tablet,disintegrating 4 mg PO Q8H PRN (Reason: nausea and vomiting) Qty: 10 0RF oxycodone 5 mg tablet 5 mg PO Q8H PRN (Reason: severe pain (scale score 7-10)) Qty: 6 0RF Rx Instructions: Partial Fill upon patient request. cyclobenzaprine 5 mg tablet 5 mg PO TID PRN (Reason: muscle spasm) 7 Days Qty: 21 0RF ondansetron 4 mg tablet,disintegrating 4 mg PO Q8H PRN (Reason: nausea and vomiting) Qty: 20 0RF Referrals: [facility] [Provider Group] Adolfo Hooker MD [Primary Care Provider] - Stand Alone Forms: Work/School Release Print Language: Tajik
[2024-04-11 10:18] LABS: Influenza A PCR POSITIVE (Negative); Influenza B PCR NEGATIVE (Negative); Resp Syncy Virus RNA Qual PCR NEGATIVE (Negative); SARS COV2 PCR INHOUSE NEGATIVE (Negative)
--- NOTE | 2024-04-11 10:37 | PC.NURSE ---
patient a&ox3, swab performed, cxr performed, pt c/o ongoing cough, lungs diminished- rr equal/non labored, speaking in full sentences.
[2024-04-11 10:38] VITALS: BP 128/87; PULSE 97; RESP 18; TEMP 36.3; O2SAT 97
== END 2024-04-11 10:39 | disposition home or self-care (01) ==
PROVIDERS: Physician Assistant Medical; Emergency Provider Emergency Medicine; PCP Internal Medicine
DX: J10.1 Influenza due to other identified influenza virus with other respiratory manifestations (principal); R05.9 Cough, unspecified; Z03.818 Encounter for observation for suspected exposure to other biological agents ruled out
CPT/HCPCS: 0241U; 71046; 99282; 99283

== ENCOUNTER → 2024-04-11 09:23 | Outpatient (BNV) | payer OTHER, SELFPAY | PROVIDERS: Emergency Provider Emergency Medicine; PCP Internal Medicine; Visit Provider Radiology Diagnostic Radiology | DX: J11.1 Influenza due to unidentified influenza virus with other respiratory manifestations (principal) | CPT/HCPCS: 71046 ==

== ENCOUNTER 2024-06-04 15:16 | Outpatient (AMB) | payer MEDICAID, SELFPAY ==
--- NOTE | 2024-06-04 13:37 | A.OFFVIS_ITS ---
Vital Signs 06/04/24 15:27 Height 5 ft 2 in Weight 188 lb BMI 34.4 Pulse 94 Pulse Source Pulse Oximeter Pulse Oximetry (%) 97 Oxygen Delivery Method Room Air Intake Visit Reasons: Influenza - ED [facility] [place] Assistant Women'S Rowing Coach Required: No Spar Machine Operator Helper: Spar Machine Operator Helper offered & declined Accompanied by: Self / Same As Patient Allergies aspirin [ASPIRIN] Allergy (Severe, Verified 06/04/24 15:31) ANAPHYLAXIS bee pollen [BEE STINGS] Allergy (Unknown, Verified 06/04/24 15:31) ANAPHYLAXIS latex [LATEX] Allergy (Unknown, Verified 06/04/24 15:31) RASH Sulfa (Sulfonamide Antibiotics) [SULFA (SULFONAMIDE ANTIBIOTICS)] Allergy (Unknown, Verified 06/04/24 15:31) RASH medroxyprogesterone [From Depo-Provera] Allergy (Verified 06/04/24 15:31) Unknown nitrofurantoin [From Macrobid] Allergy (Verified 06/04/24 15:31) Anaphylaxis Medication List - Last Reconciled 06/04/24 by Valerie Galindo LPN albuterol sulfate 90 mcg/actuation 1 inh inhalation QID PRN bupropion HCl XL 300 mg PO QAM cyclobenzaprine 5 mg PO TID PRN 7 days gabapentin orally bedtime; 100-300 up to 3x per day prn levothyroxine 100 mcg PO DAILY melatonin 5 mg PO BEDTIME PRN meloxicam 15 mg PO DAILY methylphenidate HCl ER (Concerta) 36 mg PO DAILY omeprazole magnesium 20 mg PO DAILY ondansetron 4 mg PO Q8H PRN ondansetron 4 mg PO Q8H PRN ondansetron HCl 4 mg PO Q8H PRN oxycodone 5 mg PO Q8H PRN HPI HPI Influenza - ED [facility] [place]: Details: Melba is a pleasant 39 year old, current tobacco smoker and vapes nicotine/THC, with 35+ pyh with underlying recurrent respiratory infections and h/o substance abuse. She was referred by [facility] for pulmonary evaluation after recent evaluation 04/11/24. She was seen after a 5 day history of chest congestion, cough and dyspnea, found to have influenza A. Unfortunately she was out of the treatment window therefore Tamiflu was not prescribed. She was ultimately discharged with albuterol MDI. Shortly after discharge she developed symptoms of URI again and was evaluated at urgent care on two separate occasions through [facility], receiving prednisone. Reportedly CXR unremarkable. CXR from 04/11 negative. She continues to report productive cough with greenish sputum, chest congestion and dyspnea. She has been using her albuterol daily with good effect. 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 She reports having COVID 8 times. She endorses seasonal allergies, no recent allergy testing. She reports family history of lung cancer in nonsmokers, maternal grandmother and paternal grandfather. [facility] Medical History Hypothyroidism Gastroparesis Social History (Updated 06/04/24 @ 15:38 by Valerie Galindo LPN) Patient Tobacco Use Status: Current everyday Tobacco user Cigarettes Per Day: 5 Years Smoked: hx of 2ppd 20yrs/ Currently vapes as well. Substance Use Type: Marijuana Review of Systems Const Denies chills, Denies excessive sweating, Denies fever(s), Denies headache(s) and Denies night sweats Eyes Denies dry eyes and Denies irritation ENT Reports Normal hearing present, Denies headache(s), Denies nasal congestion, Denies nasal discharge, Denies post nasal drip and Denies sore throat Card Denies chest pain, Denies chest pain at rest, Denies chest pain with activity, Denies claudication, Denies leg edema, Denies orthopnea and Denies paroxysmal nocturnal dyspnea Resp Denies excessive phlegm production, Denies pain on inspiration, Denies pain with cough, Denies stridor and Denies wheezing Musc Denies myalgias Neuro Reports Normal hearing present and Denies headache(s) Endo Denies excessive sweating Otto/Lymph Denies lymphadenopathy Aller/Immun Denies seasonal rhinorrhea and Denies wheezing Physical Exam Vital Signs: Last Vital Signs Pulse 94 06/04/24 15:27 Pulse Ox 97 06/04/24 15:27 Oxygen Delivery Method Room Air 06/04/24 15:27 BMI result Body Mass Index 34.4 Const General: cooperative, healthy appearing, comfortable, no acute distress, well developed and alert Nutritional Appearance: obese Orientation/consciousness: patient oriented x3 Limitations: no limitations HEENT Head: Yes normal to inspection, Yes normocephalic and Yes atraumatic Ears: hearing grossly normal bilaterally and external ears normal Eyes General: appearance normal, both eyes and all related structures Eyelids: Yes eyelids normal Sclerae: sclerae normal EOM: EOMs intact bilaterally Neck Neck: Yes normal visual inspection and Yes no lymphadenopathy Lymphatic: no lymphadenopathy noted Chest Chest palpation & inspection: normal inspection of the chest Resp Effort & Inspection: normal respiratory effort, able to speak in complete sentences, no audible wheezes, no cough, no stridor, not tachypneic, no tripod positioning and no use of accessory muscles Auscultation: clear to auscultation bilaterally Cardio Jugular venous distension: no JVD Rate: regular rate Rhythm: regular rhythm Skin Other: warm, dry General skin exam: no rashes or lesions noted Neuro General: patient oriented x3 Cranial nerves: Yes Normal hearing present Cognition (Neuro): normal cognition Gait exam (Neuro): Normal gait present Extrem General: Yes normal to inspection, Yes capillary refill normal, Yes no clubbing, cyanosis or edema and Yes no pedal edema Psych Appearance: grossly normal and well kempt Speech and movement: Normal speech and movement present and Clear speech present Affect: normal affect Attitude: cooperative Thought process: Normal thought process present Thought content: Normal thought content present Insight: Good insight present (Psych) Judgement: Good judgement present (Psych) Assessment & Plan Assessment & Plan (1) Asthma: Code(s): J45.909 - Unspecified asthma, uncomplicated Category: Medical (2) Environmental allergies: Code(s): Z91.09 - Other allergy status, other than to drugs and biological substances Category: Medical (3) Nicotine dependence, cigarettes, uncomplicated: Code(s): F17.210 - Nicotine dependence, cigarettes, uncomplicated Category: Medical (4) Recurrent respiratory infection: Code(s): J98.8 - Other specified respiratory disorders Category: Medical Plan Melba presents for pulmonary evaluation for worsening respiratory symptoms over the last few months, requiring multiple evaluations through urgent care and ED. Will empirically start on Breo and patient with bronchitic symptoms, will treat with azithromycin. Patient also notes that she is prone to yeast infections with any antibiotic use, will send fluconazole. Discussed importance of good oral hygiene to prevent thrush. Will also send for PFT to assess for an obstructive defect and RAST to assess for an allergic component. Will also check immune function as she has had recurrent infections. Smoking cessation reviewed, over the last 6 months she has decreased from 1ppd to 1/4 ppd however continues to vape, sheis working towards quitting. All questions were answered and patient is in agreement of plan. Will follow up in 6-8 weeks or sooner if needed. Orders: Orders Resp Allergy Profile Region I Today Z91.09 - Other allergy status, other than to drugs and biological substances Immunoglobulin E Today Z91.09 - Other allergy status, other than to drugs and biological substances Complete Blood Count Auto Diff Today Z91.09 - Other allergy status, other than to drugs and biological substances Immunoglobulins,IgG IgA IgM Today J98.8 - Other specified respiratory disorders Immunoglobulin G Subclasses Today J98.8 - Other specified respiratory disorders PFT pulmonary function test Today J45.909 - Unspecified asthma, uncomplicated Medications: New fluconazole may repeat second dose 72 hrs after first dose if symptoms persist 150 mg PO Q3D 2 tabs 0RF fluticasone furoate-vilanterol 100-25 mcg/dose (Breo Ellipta) 1 inh inhalation DAILY 60 ea 3RF azithromycin For 250 mg dose pack: take 500 mg today (day 1), then 250 mg for 4 days (days 2-5) PO 6 tabs 0RF Coding Level of Care Code New Pt Level 4 (58033) Diagnoses Asthma J45.909 Environmental allergies Z91.09 Nicotine dependence, cigarettes, uncomplicated F17.210 Recurrent respiratory infection J98.8
[2024-06-04 15:27] VITALS: PULSE 94; O2SAT 97; BMI 34.4
--- OUTSIDE RECORDS SUMMARY | 2024-06-04 18:50 | XMS_ITS | Clinical Summary ---
Author Organization [facility] ity Address [address] [place] [address] Care Team Providers Care Peanut Blancher Name Role Phone Unavailable Primary Care Provider Unavailabl e Social History Tobacco Use Types Packs/Day Years Used Date Smoking Tobacco: Never Assessed Comments Unknown Sex and Gender Information Value Date Recorded Sex Assigned at Not on file Legal Sex Female 10:05 AM EST Gender Identity Not on file Sexual Orientation Not on file Plan of Treatment Health Maintenance Due Date Last Done Comments DTaP,Tdap,and Td Vaccines (1 - Tdap) 2005 Hepatitis B Vaccines (1 of 3 - 19+ 3-dose series) 2005 Cervical Cancer Screening: P ap Smear 2007 Depression Screening 03/12/2022 HIV Screening 03/12/2022 Hepatitis C Screening 03/12/2022 Social Influencers of Health Screening 03/12/2022 COVID-19 Vaccine (2023-2 5 season) 2023 Influenza Vaccine (#1) 2023 HIB Vaccines Aged Out No longer eligi ble based on patient's age to complete this topic HPV Vaccines Aged Out No longer eligi ble based on patient's age to complete this topic Hepatitis A Vaccines Aged Out No long er eligible based on patient's age to complete this topic IPV Vaccines Aged Out No longer eligi ble based on patient's age to complete this topic MMR Vaccines Aged Out No longer eligi ble based on patient's age to complete this topic Meningococcal ACWY Vaccine Aged Out N o longer eligible based on patient's age to complete this topic Meningococcal B Vacine Aged Out No lo nger eligible based on patient's age to complete this topic Pneumococcal Vaccine: Pediat rics (0 to 5 Years) and At-Risk Patients (6 to 64 Years) Aged Out No longer eligible b ased on patient's age to complete this topic RSV Immunization Patients Un jessica 20 months Aged Out No longer eligible b ased on patient's age to complete this topic Varicella Vaccines Aged Out No longer eligible based on patient's age to complete this topic
--- OUTSIDE RECORDS SUMMARY | 2024-06-04 18:50 | XMS_ITS | Clinical Summary ---
Author Organization [facility] Address [address] [place] [address] Care Team Providers Care Roll Weigher Name Role Phone Adolfo Hooker MD Primary Care Provider [phone] Allergies Active Allergy Reactions Criticality Noted Date Comments Bee Venom Anaphylaxis High 10/31/2016 Latex Unknown/Patient and Family Unable to Define Medium 05/20/2023 Nitrofurantoin Unknown/Patient and Family Unable to Define Medium 05/20/2023 Medications Medication Sig Dispensed Refills Start Date End Date Status amitriptyline (ELAVIL) 10 MG tablet TAKE 1 TABLET BY MOUTH EVERYDAY AT BEDTIME 03/03/2023 Active ARIPiprazole (ABILIFY) 15 MG tablet Take 1 tablet (15 mg total) by mouth daily. 04/03/2023 Active DULoxetine (CYMBALTA) 60 MG capsule TAKE 2 CAPSULES (120 MG) BY MOUTH AFTER BREAKFAST 04/03/2023 Active levothyroxine (SYNTHROID, LEVOTHROID) 88 MCG tablet Take 1 tablet (88 mcg total) by mouth every morning. 03/21/2023 Active Concerta 27 MG CR tablet 05/16/2023 Active topiramate (TOPAMAX) 100 MG tablet Take 1 tablet (100 mg total) by mouth nightly. 04/03/2023 Active orphenadrine (NORFLEX) 100 MG tablet Take 1 tablet (100 mg total) by mouth 2 (two) times a day. 20 tablet 05/20/2023 Active Social History Tobacco Use Types Packs/Day Years Used Date Smoking Tobacco: Every Day Cigarettes Smokeless Tobacco: Never Alcohol Use Standard Drinks/Week Comments Not Currently 0 (1 standard drink = 0.6 oz pur e alcohol) Sex and Gender Information Value Date Recorded Sex Assigned at Female 05/20/2023 12:43 AM EST Gender Identity Female 05/20/2023 12:43 AM EST Sexual Orientation Heterosexual (straight) 05/20 12:43 AM EST Last Filed Vital Signs Vital Sign Reading Time Taken Comments Blood Pressure 99/52 05/20/2023 3:14 AM EST Pulse 77 05/20/2023 3:14 AM EST Temperature 36.3 ??C (97.4 ??F) 05/20/2023 12:[address] Respiratory Rate 18 05/20/2023 3:14 AM EST Oxygen Saturation 98% 05/20/2023 3:14 AM EST Inhaled Oxygen Concentration - - Weight - - Height - - Body Mass Index - - Plan of Treatment Health Maintenance Due Date Last Done Comments Hepatitis C Virus Screening 1986 HIV Screening 1999 DTaP/Tdap/Td Vaccines (1 - Tdap) 2005 Hepatitis B Vaccines (1 of 3 - 19+ 3-dose series) 2005 Pneumococcal Vaccine: Pediatric (0-5 Years) and At-Risk Patients (6 to 49 Years) (1 of 2 - PCV) 2005 Pap Smear (Ages 21-65) 2007 Influenza Vaccine 11/08/2023 02/22/2021, 01/22/2017 COVID-19 Vaccine (2023-2 5 season) 2023 04/07/2021, 03/10/2021, 02/27/2021 HPV Vaccines Aged Out No longer eligi ble based on patient's age to complete this topic Care Teams Roll Weigher Relationship Specialty Start Date End Date Adolfo Hooker MD [address] [place] [address] PCP - General Family Medicine 05/20/23
== END 2024-06-04 16:15 | disposition home or self-care (01) ==
PROVIDERS: PCP Internal Medicine; Referring Provider Physician Assistant; Visit Provider Nurse Practitioner Family
DX: J45.909 Unspecified asthma, uncomplicated (principal); Z91.09 Other allergy status, other than to drugs and biological substances; F17.210 Nicotine dependence, cigarettes, uncomplicated; J98.8 Other specified respiratory disorders
CPT/HCPCS: 99204

== ENCOUNTER → 2024-06-04 15:16 | Outpatient (BNVA) | payer MEDICAID, SELFPAY | PROVIDERS: PCP Internal Medicine; Referring Provider Physician Assistant; Visit Provider Nurse Practitioner Family | DX: J45.909 Unspecified asthma, uncomplicated (principal); J98.8 Other specified respiratory disorders; Z91.09 Other allergy status, other than to drugs and biological substances; F17.210 Nicotine dependence, cigarettes, uncomplicated | CPT/HCPCS: 99212 ==

== ENCOUNTER 2024-06-05 12:42 | Emergency (ER) | payer OTHER, SELFPAY ==
[2024-06-05 12:47] VITALS: BP 115/80; PULSE 81; RESP 18; TEMP 36.3; O2SAT 99; BMI 34.7
--- NOTE | 2024-06-05 12:51 | ECG_ITS ---
Test Reason : EPIGASTRIC ABD PAIN Blood Pressure : */* mmHG Vent. Rate : 69 BPM Atrial Rate : 69 BPM P-R Int : 114 ms QRS Dur : 82 ms QT Int : 360 ms P-R-T Axes : 23 21 17 degrees QTcB Int : 385 ms Normal sinus rhythm Normal ECG When compared with ECG of 04-Nov-2023 08:07, No significant change was found Referred By: Chi Lobo Electronically Signed By: Maico Rowley
--- NOTE | 2024-06-05 12:54 | ED_ITS ---
HPI - General Adult General Chief complaint: Allergic Reaction Stated complaint: allergic reaction History of Present Illness HPI narrative: Patient left before completion of treatment by ED provider. Related Data Home Medications ?Medication ?Instructions ?Recorded ?Confirmed bupropion HCl 300 mg 24 hr tablet, 300 mg PO QAM 06/04/24 06/04/24 extended release gabapentin 100 mg capsule See Rx Instructions PO BEDTIME 06/04/24 06/04/24 levothyroxine 100 mcg tablet 100 mcg PO DAILY 06/04/24 06/04/24 melatonin 5 mg tablet 5 mg PO BEDTIME PRN 06/04/24 06/04/24 meloxicam 15 mg tablet 15 mg PO DAILY 06/04/24 06/04/24 methylphenidate HCl 36 mg 36 mg PO DAILY 06/04/24 06/04/24 tablet,extended release 24 hr (Concerta) omeprazole magnesium 20 mg 20 mg PO DAILY 06/04/24 06/04/24 tablet,delayed release Previous Rx's ?Medication ?Instructions ?Recorded ondansetron 4 mg disintegrating 4 mg PO Q8H PRN nausea and 06/21/23 tablet vomiting #10 tabs oxycodone 5 mg tablet 5 mg PO Q8H PRN severe pain (scale 06/21/23 score 7-10) #6 tabs cyclobenzaprine 5 mg tablet 5 mg PO TID PRN muscle spasm 7 08/06/23 days #21 tabs ondansetron 4 mg disintegrating 4 mg PO Q8H PRN nausea and 11/04/23 tablet vomiting #20 tabs ondansetron HCl 4 mg tablet 4 mg PO Q8H PRN nausea and 12/17/23 vomiting #14 tabs albuterol sulfate 90 mcg/actuation 1 inh inhalation QID PRN shortness 04/11/24 aerosol inhaler of breath or wheezing #6.7 grams azithromycin 250 mg tablet See Rx Instructions PO .COMPLEX #6 06/04/24 tabs fluconazole 150 mg tablet 150 mg PO Q3D 2 doses #2 tabs 06/04/24 fluticasone furoate 100 1 inh inhalation DAILY #60 ea 06/04/24 mcg-vilanterol 25 mcg/dose inhalation powder (Breo Ellipta) Allergies Allergy/AdvReac Type Severity Reaction Status Date / Time aspirin [ASPIRIN] Allergy Severe ANAPHYLAXIS Verified 06/05/24 12:50 bee pollen [BEE STINGS] Allergy Unknown ANAPHYLAXIS Verified 06/05/24 12:50 latex [LATEX] Allergy Unknown RASH Verified 06/05/24 12:50 Sulfa (Sulfonamide Allergy Unknown RASH Verified 06/05/24 12:50 Antibiotics) [SULFA (SULFONAMIDE ANTIBIOTICS)] medroxyprogesterone Allergy Unknown Verified 06/05/24 12:50 [From Depo-Provera] nitrofurantoin Allergy Anaphylaxis Verified 06/05/24 12:50 [From Macrobid] [facility] Past Medical History Medical History Hypothyroidism Gastroparesis Social History Social History (Updated 06/04/24 @ 15:38 by Valerie Galindo LPN) Patient Tobacco Use Status: Current everyday Tobacco user Cigarettes Per Day: 5 Years Smoked: hx of 2ppd 20yrs/ Currently vapes as well. Substance Use Type: Marijuana Advance Directives: No Advance Directives Information Provided: No Physical Exam ED Vital Signs: Vital Signs - 24 hr 06/05/24 12:47 Temperature 97.3 F Pulse Rate 81 Respiratory Rate 18 Blood Pressure 115/80 Pulse Oximetry 99 Oxygen Delivery Method Room Air BMI result Body Mass Index 34.7 Course Course Course Narrative: RME: 39 yold female presents to the ED for epigastric abdominal pain, with acid buring sensation, and vomitting. Patient state taking meloxacam and azithromycin last night, but never had any swelling, itching, or rash. Patient presently denies any swelling,itching, rash, or sore throat. negative for rash on physical exam. negative for tongue swelling/facial swelling. lungs clear. Positive for epigastric tenderness on palpation. Presently not suspecting any allergic reaction. Labs EKG ordered. Medical Decision Making Lab Data 06/05/24 13:07 06/05/24 13:07 Labs: Lab Results 06/05/24 Range/Units 13:07 WBC 11.0 H (4.8-10.8) X10*3/uL RBC 4.90 (4.20-5.50) X10*6/uL Hgb 14.1 (12.0-16.0) g/dl Hct 41.8 (37.0-47.0) % MCV 85.3 (80.0-98.0) fL MCH 28.8 (27.0-33.0) pg MCHC 33.7 (31.0-35.0) g/dl RDW 13.5 (11.0-16.0) % Plt Count 465 H D (160-400) X10*3/uL MPV 8.7 L (9.4-12.3) fL Immature Gran % (Auto) 0.4 (0.0-0.4) % Neut % (Auto) 51.0 (45-73) % Lymph % (Auto) 41.1 H (20-40) % Martin % (Auto) 5.8 (2-11) % Eos % (Auto) 1.3 (0-4) % Baso % (Auto) 0.4 (0-2) % Lymph # (Auto) 4.5 (1.2-4.9) X10*3/uL Martin # (Auto) 0.6 (0.1-1.2) X10*3/uL Eos # (Auto) 0.1 (0.0-0.4) X10*3/uL Baso # (Auto) 0.0 (0.0-0.2) X10*3/uL Abs Immat Gran (auto) 0.04 H (0.00-0.03) X10*3/uL Absolute Neuts (auto) 5.6 (2.0-8.3) x10*3/uL Absolute Nucleated RBC 0.000 (0.0-0.012) X10*3/uL Nucleated RBC % (auto) 0.0 (0.0-0.2) /100WBC PT 10.2 L (10.9-12.4) SEC INR 0.9 (0.9-1.1) APTT 32.0 (26.0-36.8) SEC Sodium 139 (135-145) mmol/L Potassium 4.0 (3.3-5.1) mmol/L Chloride 107 (96-108) mmol/L Carbon Dioxide 25 (22-29) mmol/L Anion Gap 11 L (12-20) BUN 16 (9-16) mg/dL Creatinine 0.88 (0.5-1.4) mg/dL Estim Creat Clear Calc 84.8 Estimated GFR > 60 Random Glucose 91 (60-115) mg/dL Calcium 9.4 (8.4-10.2) mg/dL Total Bilirubin 0.2 (0.0-1.0) mg/dL AST 21 (5-31) U/L ALT 22 (0-31) U/L Alkaline Phosphatase 92 (39-117) U/L Total Protein 7.9 (6.5-8.0) g/dL Albumin 4.4 (3.5-5.0) g/dL Lipase 65 (8-78) U/L Beta HCG, Quant < 2 mIU/mL Discharge Plan Discharge Clinical Impression: Abdominal pain Patient Disposition: Left W/O Completing Treatment Prescriptions: No Action ondansetron HCl 4 mg tablet 4 mg PO Q8H PRN (Reason: nausea and vomiting) Qty: 14 0RF albuterol sulfate 90 mcg/actuation HFA aerosol inhaler 1 inh inhalation QID PRN (Reason: shortness of breath or wheezing) Qty: 6.7 0RF ondansetron 4 mg tablet,disintegrating 4 mg PO Q8H PRN (Reason: nausea and vomiting) Qty: 10 0RF oxycodone 5 mg tablet 5 mg PO Q8H PRN (Reason: severe pain (scale score 7-10)) Qty: 6 0RF Rx Instructions: Partial Fill upon patient request. cyclobenzaprine 5 mg tablet 5 mg PO TID PRN (Reason: muscle spasm) 7 Days Qty: 21 0RF ondansetron 4 mg tablet,disintegrating 4 mg PO Q8H PRN (Reason: nausea and vomiting) Qty: 20 0RF bupropion HCl 300 mg tablet extended release 24 hr 300 mg PO QAM methylphenidate HCl [Concerta] 36 mg tablet extended release 24hr 36 mg PO DAILY levothyroxine 100 mcg tablet 100 mcg PO DAILY omeprazole magnesium 20 mg tablet,delayed release (DR/EC) 20 mg PO DAILY melatonin 5 mg tablet 5 mg PO BEDTIME PRN meloxicam 15 mg tablet 15 mg PO DAILY gabapentin 100 mg capsule See Rx Instructions PO BEDTIME Rx Instructions: orally bedtime; 100-300 up to 3x per day prn azithromycin 250 mg tablet See Rx Instructions PO .COMPLEX Qty: 6 0RF Rx Instructions: For 250 mg dose pack: take 500 mg today (day 1), then 250 mg for 4 days (days 2-5) PO fluconazole 150 mg tablet 150 mg PO Q3D Qty: 2 0RF Rx Instructions: may repeat second dose 72 hrs after first dose if symptoms persist fluticasone furoate-vilanterol [Breo Ellipta] 100-25 mcg/dose blister with device 1 inh inhalation DAILY Qty: 60 3RF Discharge Date/Time: 06/05/24 17:05
[2024-06-05 13:12] LABS: MANUAL DIFF FLAG NO
[2024-06-05 13:14] LABS: Basophils Percent Auto 0.4 % (0-2); Eosinophils Absolute Auto 0.1 X10*3/uL (0.0-0.4); Eosinophils Percent Auto 1.3 % (0-4); Hematocrit 41.8 % (37.0-47.0); Hemoglobin 14.1 g/dl (12.0-16.0); Imm Gran Abs Auto 0.04 X10*3/uL (0.00-0.03); Imm Gran Pct Auto 0.4 % (0.0-0.4); Lymphocytes Absolute Auto 4.5 X10*3/uL (1.2-4.9); Lymphocytes Percent Auto 41.1 % (20-40); Mean Corpuscular HGB Conc 33.7 g/dl (31.0-35.0); Mean Corpuscular Hemoglobin 28.8 pg (27.0-33.0); Mean Corpuscular Volume 85.3 fL (80.0-98.0); Mean Platelet Volume 8.7 fL (9.4-12.3); Monocytes Absolute Auto 0.6 X10*3/uL (0.1-1.2); Monocytes Percent Auto 5.8 % (2-11); Neutrophils Absolute Auto 5.6 x10*3/uL (2.0-8.3); Platelet Count 465 X10*3/uL (160-400); Red Cell Distribution Width 13.5 % (11.0-16.0)
[2024-06-05 13:20] LABS: INTERNATIONAL NORM RATIO 0.9 (0.9-1.1); Prothrombin Time 10.2 SEC (10.9-12.4)
[2024-06-05 13:44] LABS: Alanine Aminotransferase 22 U/L (0-31); Albumin Level 4.4 g/dL (3.5-5.0); Alkaline Phosphatase 92 U/L (39-117); Anion Gap 11 (12-20); Aspartate Amino Transferase 21 U/L (5-31); Bilirubin Total 0.2 mg/dL (0.0-1.0); Blood Urea Nitrogen 16 mg/dL (9-16); Calcium 9.4 mg/dL (8.4-10.2); Carbon Dioxide 25 mmol/L (22-29); Chloride 107 mmol/L (96-108); Creatinine Clr Calc Pharmacy 84.8; Estimated Glomerular Filt Rate > 60; Glucose Random 91 mg/dL (60-115); HCG Quantitative < 2 mIU/mL; Lipase 65 U/L (8-78); Sodium 139 mmol/L (135-145); Total Protein 7.9 g/dL (6.5-8.0)
--- OUTSIDE RECORDS SUMMARY | 2024-06-05 19:34 | XMS_ITS | Clinical Summary ---
Author Organization [facility] Address [address] [place] [address] Care Team Providers Care Corporate Secretary Name Role Phone Adolfo Hooker MD Primary Care Provider [phone] Allergies Active Allergy Reactions Criticality Noted Date [...] age to complete this topic Care Teams Corporate Secretary Relationship Specialty Start Date End Date Adolfo Hooker MD [address] [place] [address] PCP - General Family Medicine 05/20/23
--- OUTSIDE RECORDS SUMMARY | 2024-06-05 19:34 | XMS_ITS | Clinical Summary ---
Author Organization [facility] ity Address [address] [place] [address] Care Team Providers Care Transport Rn Name Role Phone Unavailable Primary Care Provider [...]
== END 2024-06-05 17:05 | disposition left against medical advice (07) ==
PROVIDERS: Physician Assistant; Emergency Provider Emergency Medicine; PCP Internal Medicine
DX: R10.13 Epigastric pain (principal); F17.210 Nicotine dependence, cigarettes, uncomplicated
CPT/HCPCS: 36415; 80053; 83690; 84702; 85025; 85610; 85730; 93005; 99283

== ENCOUNTER → 2024-06-05 12:51 | Outpatient (BNV) | payer MEDICAID, SELFPAY | PROVIDERS: Emergency Provider Emergency Medicine; PCP Internal Medicine; Visit Provider Internal Medicine Cardiovascular Disease | DX: R10.13 Epigastric pain (principal) | CPT/HCPCS: 93010 ==

== ENCOUNTER 2024-07-27 19:02 | Emergency (ER) | payer MEDICAID, SELFPAY ==
--- NOTE | 2024-07-27 07:24 | ECG_ITS ---
Test Reason : PALPITATIONS Blood Pressure : */* mmHG Vent. Rate : 66 BPM Atrial Rate : 66 BPM P-R Int : 140 ms QRS Dur : 80 ms QT Int : 400 ms P-R-T Axes : 25 25 15 degrees QTcB Int : 419 ms Normal sinus rhythm Normal ECG When compared with ECG of 27-Jul-2024 20:14, Left posterior fascicular block is no longer Present Referred By: Kell lPummer Electronically Signed By: STEFANIE WOOD
--- NOTE | 2024-07-27 19:14 | ECG_ITS ---
Test Reason : PALPITATIONS Blood Pressure : */* mmHG Vent. Rate : 66 BPM Atrial Rate : 66 BPM P-R Int : 134 ms QRS Dur : 82 ms QT Int : 402 ms P-R-T Axes : * 152 166 degrees QTcB Int : 421 ms Normal sinus rhythm Low voltage QRS Left posterior fascicular block Abnormal ECG When compared with ECG of 05-Jun-2024 13:01, Left posterior fascicular block is now Present T wave inversion now evident in Lateral leads Referred By: Generic ED Physician Electronically Signed By: STEFANIE WOOD
[2024-07-27 19:19] VITALS: BP 103/70; BP 136/78; PULSE 75; PULSE 88; RESP 18; TEMP 36.7; O2SAT 95; O2SAT 96; BMI 34.1
--- OUTSIDE RECORDS SUMMARY | 2024-07-27 19:41 | XMS_ITS | Clinical Summary ---
Author Organization [facility] ity Address [address] [place] [address] Care Team Providers Care Director Presales Name Role Phone Unavailable Primary Care Provider [...] Vaccine (2023-2 5 season) 2023 Influenza Vaccine (Season Ended) 2024 HIB Vaccines Aged Out No longer eligi [...] age to complete this topic Meningococcal B Vaccine Aged Out No l onger eligible based on patient's age to complete [...]
--- OUTSIDE RECORDS SUMMARY | 2024-07-27 19:41 | XMS_ITS | Clinical Summary ---
Author Organization [facility] Address [address] [place] [address] Care Team Providers Care Button Station Worker Name Role Phone Adolfo Hooker MD Primary Care Provider [phone] Allergies Active Allergy Reactions Criticality Noted Date Comments Bee Venom Anaphylaxis High 10/31/2016 Latex Unknown/Patient and Family Unable to Define Medium 05/20/2023 Nitrofurantoin Unknown/Patient and Family Unable to Define Medium 05/20/2023 Medications amitriptyline (ELAVIL) 10 MG tablet TAKE 1 TABLET BY MOUTH EVERYDAY AT BEDTIME 3 Active ARIPiprazole (ABILIFY) 15 MG tablet Take 1 tablet (15 mg total) by mouth daily. 3 Active DULoxetine (CYMBALTA) 60 MG capsule TAKE 2 CAPSULES (120 MG) BY MOUTH AFTER BREAKFAST 3 Active levothyroxine (SYNTHROID, LEVOTHROID) 88 MCG tablet Take 1 tablet (88 mcg total) by mouth every morning. 3 Active Concerta 27 MG CR tablet 4 Active topiramate (TOPAMAX) 100 MG tablet Take 1 tablet (100 mg total) by mouth nightly. 3 Active orphenadrine (NORFLEX) 100 MG tablet Take 1 tablet (100 mg total) by mouth 2 (two) times a day. 20 tablet 4 Active Social History Tobacco Use Types Packs/Day Years Used Date Smoking Tobacco: Every Day Cigarettes Smokeless Tobacco: Never Alcohol Use Standard Drinks/Week Comments Not Currently 0 (1 standard drink = 0.6 oz pur e alcohol) Comments Unknown Sex and Gender Information Value Date Recorded Sex Assigned at Female 05/20/2023 12:43 AM EST Legal Sex Female 12:18 AM EST Gender Identity Female 05/20/2023 12:43 [...] Influenza Vaccine 11/08/2023 02/22/2021, 01/22/2017 COVID-19 Vaccine ( - 2023-2 5 season) 2023 04/07/2021, 03/10/2021, 02/27/2021 HPV Vaccines Aged Out No longer eligi ble based on patient's age to complete this topic Insurance [facility] (AUTO/LIABILITY) Care Teams Button Station Worker Relationship Specialty Start Date End Date Adolfo Hooker MD [address] [place] [address] PCP - General Family Medicine 05/20/23
--- NOTE | 2024-07-27 19:43 | ED.HA ---
HPI - Headache General Chief Complaint: Arrhythmia/Palpitations Stated Complaint: migraine , chest tightness, and palpations Time Seen by Provider: 07/27/24 19:16 Source: patient, EMS and old records reviewed Limitations: no limitations History of Present Illness ED Provider: RAFFAELE HPI Narrative: 39 yo female with PMH of asthma, migraines developed a migraine today then took her imitrex around 5pm after that she felt a machado and her heart started to race. Headache started as usual with R sided eye pain nausea and photophobia. She came because her heart has never raced with imitrex before. She denies dyspnea, travel, recent procedures. No recent falls or headstrikes, no URI. MD elicited complaint: migraine Pertinent past history: migraines Onset (ago): hour(s) (5pm) Onset description: gradually Location: right and temporal Severity: moderate Quality & Timing: throbbing Exacerbating factors: movement of head/neck and light Relieving factors: nothing Context: occurred at rest Associated symptoms: nausea, photophobia and other (chest tightness and tingling after imitrex) Treatments prior to arrival: migraine medication Related Data Home Medications ?Medication ?Instructions ?Recorded ?Confirmed bupropion HCl 300 mg 24 hr tablet, 300 mg PO QAM 06/04/24 06/04/24 extended release gabapentin 100 mg capsule See Rx Instructions PO BEDTIME 06/04/24 06/04/24 levothyroxine 100 mcg tablet 100 mcg PO DAILY 06/04/24 06/04/24 melatonin 5 mg tablet 5 mg PO BEDTIME PRN 06/04/24 06/04/24 meloxicam 15 mg tablet 15 mg PO DAILY 06/04/24 06/04/24 methylphenidate HCl 36 mg 36 mg PO DAILY 06/04/24 06/04/24 tablet,extended release 24 hr (Concerta) omeprazole magnesium 20 mg 20 mg PO DAILY 06/04/24 06/04/24 tablet,delayed release Previous Rx's ?Medication ?Instructions ?Recorded ondansetron 4 mg disintegrating 4 mg PO Q8H PRN nausea and 06/21/23 tablet vomiting #10 tabs oxycodone 5 mg tablet 5 mg PO Q8H PRN severe pain (scale 06/21/23 score 7-10) #6 tabs cyclobenzaprine 5 mg tablet 5 mg PO TID PRN muscle spasm 7 04/29/24 days #21 tabs ondansetron 4 mg disintegrating 4 mg PO Q8H PRN nausea and 11/04/23 tablet vomiting #20 tabs ondansetron HCl 4 mg tablet 4 mg PO Q8H PRN nausea and 12/17/23 vomiting #14 tabs albuterol sulfate 90 mcg/actuation 1 inh inhalation QID PRN shortness 04/11/24 aerosol inhaler of breath or wheezing #6.7 grams azithromycin 250 mg tablet See Rx Instructions PO .COMPLEX #6 06/04/24 tabs fluconazole 150 mg tablet 150 mg PO Q3D 2 doses #2 tabs 06/04/24 fluticasone furoate 100 1 inh inhalation DAILY #60 ea 06/04/24 mcg-vilanterol 25 mcg/dose inhalation powder (Breo Ellipta) Allergies Allergy/AdvReac Type Severity Reaction Status Date / Time aspirin [ASPIRIN] Allergy Severe ANAPHYLAXIS Verified 07/27/24 19:22 bee pollen [BEE STINGS] Allergy Unknown ANAPHYLAXIS Verified 07/27/24 19:22 latex [LATEX] Allergy Unknown RASH Verified 07/27/24 19:22 Sulfa (Sulfonamide Allergy Unknown RASH Verified 07/27/24 19:22 Antibiotics) [SULFA (SULFONAMIDE ANTIBIOTICS)] medroxyprogesterone Allergy Unknown Verified 07/27/24 19:22 [From Depo-Provera] nitrofurantoin Allergy Anaphylaxis Verified 07/27/24 19:22 [From Macrobid] Review of Systems Review of Systems: Constitutional : No Fever, No Chills, No Fatigue ENT/Mouth : No sore throat, No Rhinorrhea Eyes: No Eye Pain, No Swelling, No Redness Cardiovascular : pos Chest Pain, No SOB, No Dyspnea on Exertion Respiratory : No Cough, No Sputum Gastrointestinal : pos Nausea, No Vomiting, No Diarrhea, No abdominal Pain Genitourinary : No Dysuria, No Urinary Frequency, No Hematuria, Musculoskeletal : No joint pain, No Myalgias, No Joint Swelling Skin : No Skin Lesions, No rash Neuro : No Weakness, No Numbness, No Dizziness, positive Headache Psych : No Anxiety/Panic, No Depression All other systems reviewed and are negative [facility] Past Medical History Attestation statement: The following information was validated with the patient. Source: old records reviewed Medical History Hypothyroidism Gastroparesis Social History Social History Patient Tobacco Use Status: Current everyday Tobacco user Cigarettes Per Day: 5 Years Smoked: hx of 2ppd 20yrs/ Currently vapes as well. Smoked in Last 30 Days: No Use of substances other than those prescribed or required for medical reasons: Yes Substance Use Type: Marijuana Substance Use Frequency: Occasionally Advance Directives: No Advance Directives Information Provided: No Do you have a plan to hurt others: No Plan Patient : No Physical Exam Vital Signs: Vital Signs: Last Vital Signs Temp 98.1 F 07/27/24 19:19 Pulse 70 07/27/24 20:00 Resp 18 07/27/24 20:00 BP 126/67 07/27/24 20:00 Pulse Ox 95 07/27/24 20:00 O2 Del Method Room Air 07/27/24 20:00 BMI result Body Mass Index 34.1 Appearance: Alert. Oriented X3. No acute distress. Eyes: Pupils equal, round and reactive to light. photophobia ENT: Pharynx normal. Neck: Normal inspection. Neck supple. CVS: Normal heart rate and rhythm. Pulses normal. Respiratory: No respiratory distress. Breath sounds normal. Abdomen: Soft and nontender. Skin: Skin warm and dry. Normal skin color. Normal skin turgor. Extremities: No lower extremity edema. No calf ttp Neuro: Oriented X 3. No motor deficit. No sensory deficit. CN2-12 intact Medications Administered Discontinued Medications Generic Name Dose Route Start Last Admin Trade Name Kodakq PRN Reason Stop Dose Admin Diphenhydramine HCl 25 mg 07/27/24 19:35 07/27/24 20:27 Diphenhydramine Hcl 50 Mg/Ml Vial IVPUSH 07/27/24 19:36 25 mg ONCE ONE Administration Lactated Ringer's 1,000 mls @ 999 mls/hr 07/27/24 19:35 07/27/24 21:33 Lr IV 07/27/24 20:35 Infused .Q1H1M ONE Infusion Prochlorperazine Edisylate 10 mg 07/27/24 19:35 07/27/24 20:26 Prochlorperazine Edisylate 10 Mg/2 Ml Vial IVPUSH 07/27/24 19:36 10 mg ONCE ONE Administration Medical Decision Making Medical Decision Making MDM Narrative: 39 yo female with PMH of asthma, migraines here with typical migraine - no trauma, no fevers no symptoms to suggest [employer] infection or SAH this is typical migraine for patient what was not typical was that the patient's heart raced and her chest was tight after imitrex - suspect med reaction but given reports will obtain EKG, trop x 1. Treat for migraine. Differential Diagnosis Differential Diagnoses: The differential diagnosis associated with the presentation includes migraine, medication reaction, anxity Admission/Observation Consideration of admission/observation: Escalation of care including admission/observation considered feels better work up reassuring stable for DC Lab Data [facility] Lab Attestation statement: I reviewed the patient's lab results. 07/27/24 20:17 07/27/24 20:17 Labs: Lab Results 07/27/24 Range/Units 20:17 WBC 8.7 (4.8-10.8) X10*3/uL RBC 4.14 L (4.20-5.50) X10*6/uL Hgb 12.0 (12.0-16.0) g/dl Hct 36.0 L (37.0-47.0) % MCV 87.0 (80.0-98.0) fL MCH 29.0 (27.0-33.0) pg MCHC 33.3 (31.0-35.0) g/dl RDW 14.1 (11.0-16.0) % Plt Count 375 (160-400) X10*3/uL MPV 8.7 L (9.4-12.3) fL Immature Gran % (Auto) 0.3 (0.0-0.4) % Neut % (Auto) 51.7 (45-73) % Lymph % (Auto) 37.9 (20-40) % [place] % (Auto) 7.8 (2-11) % Eos % (Auto) 1.7 (0-4) % Baso % (Auto) 0.6 (0-2) % Lymph # (Auto) 3.3 (1.2-4.9) X10*3/uL [place] # (Auto) 0.7 (0.1-1.2) X10*3/uL Eos # (Auto) 0.2 (0.0-0.4) X10*3/uL Baso # (Auto) 0.1 (0.0-0.2) X10*3/uL Abs Immat Gran (auto) 0.03 (0.00-0.03) X10*3/uL Absolute Neuts (auto) 4.5 (2.0-8.3) x10*3/uL Absolute Nucleated RBC 0.000 (0.0-0.012) X10*3/uL Nucleated RBC % (auto) 0.0 (0.0-0.2) /100WBC Sodium 140 (135-145) mmol/L Potassium 3.6 (3.3-5.1) mmol/L Chloride 109 H (96-108) mmol/L Carbon Dioxide 22 (22-29) mmol/L Anion Gap 13 (12-20) BUN 10 (9-16) mg/dL Creatinine 0.72 (0.5-1.4) mg/dL Estim Creat Clear Calc 102.7 Estimated GFR > 60 Random Glucose 100 (60-115) mg/dL Calcium 8.7 D (8.4-10.2) mg/dL Total Bilirubin 0.1 (0.0-1.0) mg/dL AST 26 (5-31) U/L ALT 20 (0-31) U/L Alkaline Phosphatase 80 (39-117) U/L Troponin I High Sens < 2.7 (<3.5-17.0) ng/L Total Protein 6.5 (6.5-8.0) g/dL Albumin 3.8 (3.5-5.0) g/dL Independent Interpretation I performed an independent interpretation of an: EKG Interpretation: Rate: 66 Rhythm: NSR [place]: normal Normal P waves. Normal CHRISTELLE. Normal QRS complex. ST T wave : normal no JESSICA, inverted t wave V1 qTC: 421 prior studies: no acute ischemia The study has been interpreted contemporaneously by me. . Independent Historian Clinical information obtained from an independent historian. History obtained from or confirmed by: EMS External Record Review External record reviewed: Outpatient record Discharge Plan Discharge Clinical Impression: Palpitations, Migraine Patient Disposition: Home, Self-Care Instructions: Heart Palpitations (ED), Migraine Headache (ED) Additional Instructions: labs and EKG reassuring avoid imitrex at this time return for any worsening symptoms or concerns rest and stay hydrated. Prescriptions: No Action ondansetron HCl 4 mg tablet 4 mg PO Q8H PRN (Reason: nausea and vomiting) Qty: 14 0RF albuterol sulfate 90 mcg/actuation HFA aerosol inhaler 1 inh inhalation QID PRN (Reason: shortness of breath or wheezing) Qty: 6.7 0RF ondansetron 4 mg tablet,disintegrating 4 mg PO Q8H PRN (Reason: nausea and vomiting) Qty: 10 0RF oxycodone 5 mg tablet 5 mg PO Q8H PRN (Reason: severe pain (scale score 7-10)) Qty: 6 0RF Rx Instructions: Partial Fill upon patient request. cyclobenzaprine 5 mg tablet 5 mg PO TID PRN (Reason: muscle spasm) 7 Days Qty: 21 0RF ondansetron 4 mg tablet,disintegrating 4 mg PO Q8H PRN (Reason: nausea and vomiting) Qty: 20 0RF bupropion HCl 300 mg tablet extended release 24 hr 300 mg PO QAM methylphenidate HCl [Concerta] 36 mg tablet extended release 24hr 36 mg PO DAILY levothyroxine 100 mcg tablet 100 mcg PO DAILY omeprazole magnesium 20 mg tablet,delayed release (DR/EC) 20 mg PO DAILY melatonin 5 mg tablet 5 mg PO BEDTIME PRN meloxicam 15 mg tablet 15 mg PO DAILY gabapentin 100 mg capsule See Rx Instructions PO BEDTIME Rx Instructions: orally bedtime; 100-300 up to 3x per day prn azithromycin 250 mg tablet See Rx Instructions PO .COMPLEX Qty: 6 0RF Rx Instructions: For 250 mg dose pack: take 500 mg today (day 1), then 250 mg for 4 days (days 2-5) PO fluconazole 150 mg tablet 150 mg PO Q3D Qty: 2 0RF Rx Instructions: may repeat second dose 72 hrs after first dose if symptoms persist fluticasone furoate-vilanterol [Breo Ellipta] 100-25 mcg/dose blister with device 1 inh inhalation DAILY Qty: 60 3RF Stand Alone Forms: Work/School Release Print Language: Frisian
[2024-07-27 20:00] VITALS: BP 126/67; PULSE 70; RESP 18; O2SAT 95
[2024-07-27] MEDS: Prochlorperazine Edisylate 10 MG/2 ML VIAL IVPUSH (20:26)
[2024-07-27] MEDS: Lactated Ringers 1,000 ML 999 ML IV (20:26)
[2024-07-27 20:27] LABS: MANUAL DIFF FLAG NO
[2024-07-27] MEDS: diphenhydrAMINE HCL 50 MG/ML VIAL 25 MG IVPUSH (20:27)
[2024-07-27 20:29] LABS: Basophils Absolute Auto 0.1 X10*3/uL (0.0-0.2); Basophils Percent Auto 0.6 % (0-2); Eosinophils Absolute Auto 0.2 X10*3/uL (0.0-0.4); Eosinophils Percent Auto 1.7 % (0-4); Imm Gran Abs Auto 0.03 X10*3/uL (0.00-0.03); Imm Gran Pct Auto 0.3 % (0.0-0.4); Lymphocytes Absolute Auto 3.3 X10*3/uL (1.2-4.9); Lymphocytes Percent Auto 37.9 % (20-40); Mean Corpuscular HGB Conc 33.3 g/dl (31.0-35.0); Mean Platelet Volume 8.7 fL (9.4-12.3); Monocytes Absolute Auto 0.7 X10*3/uL (0.1-1.2); Monocytes Percent Auto 7.8 % (2-11); Neutrophils Absolute Auto 4.5 x10*3/uL (2.0-8.3); Neutrophils Percent Auto 51.7 % (45-73); Platelet Count 375 X10*3/uL (160-400); Red Blood Count 4.14 X10*6/uL (4.20-5.50); Red Cell Distribution Width 14.1 % (11.0-16.0); White Blood Count 8.7 X10*3/uL (4.8-10.8)
[2024-07-27 20:50] LABS: Alanine Aminotransferase 20 U/L (0-31); Albumin Level 3.8 g/dL (3.5-5.0); Alkaline Phosphatase 80 U/L (39-117); Anion Gap 13 (12-20); Aspartate Amino Transferase 26 U/L (5-31); Bilirubin Total 0.1 mg/dL (0.0-1.0); Blood Urea Nitrogen 10 mg/dL (9-16); Calcium 8.7 mg/dL (8.4-10.2); Carbon Dioxide 22 mmol/L (22-29); Chloride 109 mmol/L (96-108); Creatinine Clr Calc Pharmacy 102.7; Estimated Glomerular Filt Rate > 60; Glucose Random 100 mg/dL (60-115); Potassium 3.6 mmol/L (3.3-5.1); Sodium 140 mmol/L (135-145); Total Protein 6.5 g/dL (6.5-8.0)
[2024-07-27 20:58] LABS: Troponin-I High Sensitivity < 2.7 ng/L (<3.5-17.0)
[2024-07-27 21:34] VITALS: PULSE 70
[2024-07-27 21:53] VITALS: BP 126/67; PULSE 70; RESP 18; TEMP 36.7; O2SAT 95
== END 2024-07-27 21:54 | disposition home or self-care (01) ==
PROVIDERS: Emergency Provider Emergency Medicine; PCP Internal Medicine
DX: R00.2 Palpitations (principal); G43.909 Migraine, unspecified, not intractable, without status migrainosus; H53.149 Visual discomfort, unspecified; R11.0 Nausea; R94.31 Abnormal electrocardiogram [ECG] [EKG]
CPT/HCPCS: 36415; 80053; 84484; 85025; 93005; 96361; 96374; 96375; 99284; 99285; J0737; J1200; J7120

== ENCOUNTER → 2024-07-27 19:14 | Outpatient (BNV) | payer MEDICAID, SELFPAY | PROVIDERS: Emergency Provider Emergency Medicine; PCP Internal Medicine; Visit Provider Internal Medicine | DX: R00.2 Palpitations (principal) | CPT/HCPCS: 93010 ==

== ENCOUNTER 2024-08-19 13:12 | Emergency (ER) | payer BC, MEDICAID, SELFPAY ==
--- NOTE | ~2024-08-19 | US_ITS ---
CLINICAL HISTORY: LLE cramping Venous duplex ultrasound left lower extremity Comparison: US/CO/SR - US VENOUS DUPLEX LE LT - 08/06/23 18:29 EDT Findings: The visualized deep veins are fully compressible with normal Doppler color flow and spectral tracings. No popliteal cyst. IMPRESSION: 1. Negative for left lower extremity deep vein thrombosis. This document has been electronically signed by: Monica Willis MD on 08/19/2024 17:28:23
[2024-08-19 13:40] VITALS: BP 119/83; PULSE 97; RESP 18; TEMP 36.7; O2SAT 98; BMI 34.0
--- NOTE | 2024-08-19 13:40 | ED_ITS ---
HPI - General Adult General Chief complaint: Extremity Injury, Lower Stated complaint: Spasms/cramps L leg/foot Time Seen by Provider: 08/19/24 15:04 Source: patient, RN notes reviewed and old records reviewed Mode of arrival: ambulatory History of Present Illness ED Provider: Julieta Valadez PA-C HPI narrative: 39-year-old female with a past medical history of hypothyroid, gastroparesis, asthma, substance use in remission x6 years, presenting to the ED complaining of low back pain/spasming x3 days s/p stretching wrong, now with cramping/spasming to left foot and calf x today. Reports difficulty bearing weight to LLE secondary to cramping. Denies direct injury/ trauma or fall. Denies heavy lifting, numbness, tingling, weakness, incontinence /retention, abdominal pain, hematuria, history of clots. Is a cigarette smoker and on oral OCPs. Denies recent travel Related Data Home Medications ?Medication ?Instructions ?Recorded ?Confirmed bupropion HCl 300 mg 24 hr tablet, 300 mg PO QAM 06/04/24 06/04/24 extended release gabapentin 100 mg capsule See Rx Instructions PO BEDTIME 06/04/24 06/04/24 levothyroxine 100 mcg tablet 100 mcg PO DAILY 06/04/24 06/04/24 melatonin 5 mg tablet 5 mg PO BEDTIME PRN 06/04/24 06/04/24 meloxicam 15 mg tablet 15 mg PO DAILY 06/04/24 06/04/24 methylphenidate HCl 36 mg 36 mg PO DAILY 06/04/24 06/04/24 tablet,extended release 24 hr (Concerta) omeprazole magnesium 20 mg 20 mg PO DAILY 06/04/24 06/04/24 tablet,delayed release Previous Rx's ?Medication ?Instructions ?Recorded ondansetron 4 mg disintegrating 4 mg PO Q8H PRN nausea and 06/21/23 tablet vomiting #10 tabs oxycodone 5 mg tablet 5 mg PO Q8H PRN severe pain (scale 06/21/23 score 7-10) #6 tabs cyclobenzaprine 5 mg tablet 5 mg PO TID PRN muscle spasm 7 08/06/23 days #21 tabs ondansetron 4 mg disintegrating 4 mg PO Q8H PRN nausea and 11/04/23 tablet vomiting #20 tabs ondansetron HCl 4 mg tablet 4 mg PO Q8H PRN nausea and 12/17/23 vomiting #14 tabs albuterol sulfate 90 mcg/actuation 1 inh inhalation QID PRN shortness 04/11/24 aerosol inhaler of breath or wheezing #6.7 grams azithromycin 250 mg tablet See Rx Instructions PO .COMPLEX #6 06/04/24 tabs fluconazole 150 mg tablet 150 mg PO Q3D 2 doses #2 tabs 06/04/24 fluticasone furoate 100 1 inh inhalation DAILY #60 ea 06/04/24 mcg-vilanterol 25 mcg/dose inhalation powder (Breo Ellipta) cyclobenzaprine 5 mg tablet 5 mg PO Q8H PRN pain (scale score 08/19/24 7-10) 5 days #14 tabs Allergies Allergy/AdvReac Type Severity Reaction Status Date / Time aspirin [ASPIRIN] Allergy Severe ANAPHYLAXIS Verified 08/19/24 13:42 bee pollen [BEE STINGS] Allergy Unknown ANAPHYLAXIS Verified 08/19/24 13:42 latex [LATEX] Allergy Unknown RASH Verified 08/19/24 13:42 Sulfa (Sulfonamide Allergy Unknown RASH Verified 08/19/24 13:42 Antibiotics) [SULFA (SULFONAMIDE ANTIBIOTICS)] medroxyprogesterone Allergy Unknown Verified 08/19/24 13:42 [From Depo-Provera] nitrofurantoin Allergy Anaphylaxis Verified 08/19/24 13:42 [From Macrobid] Review of Systems 2 Review of Systems: Yes all other systems are reviewed and are negative Constitutional: Constitutional: Reports as per HPI Neurologic: Denies Sensory deficit (Neuro) [facility] Past Medical History Attestation statement: The following information was validated with the patient. Source: old records reviewed Medical History Hypothyroidism Gastroparesis Social History Social History Patient Tobacco Use Status: Current everyday Tobacco user Cigarettes Per Day: 5 Years Smoked: hx of 2ppd 20yrs/ Currently vapes as well. Substance Use Type: Marijuana Physical Exam ED Vital Signs: Vital Signs - 24 hr 08/19/24 13:40 08/19/24 15:36 08/19/24 18:34 Temperature 98.0 F 98.7 F 98.7 F Pulse Rate 97 74 74 Respiratory Rate 18 18 18 Blood Pressure 119/83 108/67 108/67 Pulse Oximetry 98 94 94 Oxygen Delivery Method Room Air Room Air Room Air BMI result Body Mass Index 34.0 Const General: cooperative, healthy appearing and no acute distress Orientation/consciousness: patient oriented x3 Limitations: no limitations HENMT Head: Yes normal to inspection and Yes atraumatic Ears: hearing grossly normal bilaterally General nose exam: Normal external nose present Face and sinus: Yes normal facial exam Eyes General: appearance normal, both eyes and all related structures EOM: EOMs intact bilaterally Neck Neck: Yes normal visual inspection and Yes no meningeal signs Resp Effort & Inspection: normal respiratory effort and no respiratory distress Auscultation: clear to auscultation bilaterally Cardio Rate: regular rate Heart sounds: S1 normal heart sound present and S2 normal heart sound present GI Inspection: Yes normal to inspection Palpation (GI): Soft to palpation, nontender, no guarding and not rigid Back/Spine/Pelvis Other: No midline cervical/thoracic/lumbar spinous tenderness/step-off or deformity. + left-sided lumbar paraspinal and MSK reproducible tenderness. No erythema, warmth, ecchymosis or rash Skin Rashes: no rashes Wounds: no wounds Neuro Other: Strength intact throughout. No saddle anesthesia. Sensation intact to light touch. Neurovascular intact distally General: patient oriented x3, tone normal, moves all extremities and no meningeal signs Cranial nerves: Yes CN's II-XII intact bilaterally Gait exam (Neuro): Normal gait present Motor exam (neuro): 5/5 motor strength present throughout Sensory Exam: No Sensory deficit (Neuro) Extrem Other: + Left calf ttp General: Yes normal to inspection and Yes no pedal edema Course Course Course Narrative: This is a rapid medical exam performed by Kristin Elise NP: Additional HPI, ROS, PE not included below will be deferred to primary provider. Patient is a 39-year-old female presenting with complaint of left foot and leg cramping. Sxs began the other day with lower back spasm. If she lowers heel, this worsens the spasm. PCP advised her to come here. Hx of substance use in the past but states she is in remission. Plan: labs -1810-- labs reassuring. CPK minimally elevated to 186 > 1L IVF ordered US venous duplex LE LT IMPRESSION: 1. Negative for left lower extremity deep vein thrombosis. > patient reports symptomatic improvement after p.o. Flexeril given in the ED Results discussed with patient including worrisome signs and symptoms and strict return precautions, and when to return to the emergency department. They verbalized understanding and feel safe for discharge at this time. Medications Administered Discontinued Medications Generic Name Dose Route Start Last Admin Trade Name Freq PRN Reason Stop Dose Admin Cyclobenzaprine HCl 10 mg 08/19/24 15:18 08/19/24 15:53 Cyclobenzaprine Hcl 10 Mg Tablet PO 08/19/24 15:19 10 mg ONCE ONE Administration Sodium Chloride 1,000 mls @ 999 mls/hr 08/19/24 15:30 08/19/24 17:13 Ns IV 08/19/24 16:30 Infused .Q1H1M JENNIE Infusion Sodium Chloride 1,000 mls @ 999 mls/hr 08/19/24 17:15 08/19/24 18:34 Ns IV 08/19/24 18:15 Infused .Q1H1M JENNIE Infusion Medical Decision Making Medical Decision Making MDM Narrative: 39-year-old female with a past medical history of hypothyroid, gastroparesis, asthma, substance use in remission x6 years, presenting to the ED complaining of low back pain/spasming x3 days s/p stretching wrong, now with cramping/spasming to left foot and calf x today. on exam vital signs stable, NAD, nontoxic appearing, physical exam as noted above. Concern for metabolic abnormalities vs rhabdomyolysis vs spasming / sciatica vs ? herniated disc vs DVT. Low suspicion for PE, cauda equina / cord compression or epidural abscess at this time Plan: Labs, ultrasound, pain control Please refer to course for remaining clinical decision making, interpretation of labs/imaging results, and discussions with consultants and/or family members. Differential Diagnosis Differential Diagnoses: The differential diagnosis associated with the presentation includes As above Admission/Observation Consideration of admission/observation: Escalation of care including admission/observation considered Lab Data [facility] Lab Attestation statement: I reviewed the patient's lab results. 08/19/24 14:01 08/19/24 14:01 Labs: Lab Results 08/19/24 Range/Units 14:01 WBC 8.1 (4.8-10.8) X10*3/uL RBC 4.29 (4.20-5.50) X10*6/uL Hgb 12.2 (12.0-16.0) g/dl Hct 36.6 L (37.0-47.0) % MCV 85.3 (80.0-98.0) fL MCH 28.4 (27.0-33.0) pg MCHC 33.3 (31.0-35.0) g/dl RDW 14.0 (11.0-16.0) % Plt Count 418 H (160-400) X10*3/uL MPV 8.6 L (9.4-12.3) fL Immature Gran % (Auto) 0.2 (0.0-0.4) % Neut % (Auto) 53.6 (45-73) % Lymph % (Auto) 38.4 (20-40) % [place] % (Auto) 5.7 (2-11) % Eos % (Auto) 1.7 (0-4) % Baso % (Auto) 0.4 (0-2) % Lymph # (Auto) 3.1 (1.2-4.9) X10*3/uL [place] # (Auto) 0.5 (0.1-1.2) X10*3/uL Eos # (Auto) 0.1 (0.0-0.4) X10*3/uL Baso # (Auto) 0.0 (0.0-0.2) X10*3/uL Abs Immat Gran (auto) 0.02 (0.00-0.03) X10*3/uL Absolute Neuts (auto) 4.3 (2.0-8.3) x10*3/uL Absolute Nucleated RBC 0.000 (0.0-0.012) X10*3/uL Nucleated RBC % (auto) 0.0 (0.0-0.2) /100WBC Sodium 138 (135-145) mmol/L Potassium 3.7 (3.3-5.1) mmol/L Chloride 108 (96-108) mmol/L Carbon Dioxide 22 (22-29) mmol/L Anion Gap 12 (12-20) BUN 9 (9-16) mg/dL Creatinine 0.77 (0.5-1.4) mg/dL Estim Creat Clear Calc 95.9 Estimated GFR > 60 Random Glucose 97 (60-115) mg/dL Calcium 8.6 (8.4-10.2) mg/dL Magnesium 1.9 (1.6-2.6) mg/dL Total Bilirubin 0.1 (0.0-1.0) mg/dL AST 28 (5-31) U/L ALT 29 (0-31) U/L Alkaline Phosphatase 96 (39-117) U/L Total Creatine Kinase 186 H (26-140) U/L Total Protein 6.9 (6.5-8.0) g/dL Albumin 4.1 (3.5-5.0) g/dL Beta HCG, Quant < 2 mIU/mL Independent Interpretation I performed an independent interpretation of an: Ultrasound Radiology Impression Discussion of test interpretation with radiology: I have reviewed the radiologist's reading. External Record Review External record reviewed: Inpatient record, Office record, Outpatient record, Prior outpatient labs, Prior outpatient radiology, Primary care record and Outside ED record Tests considered The following testing was considered but not selected: As above Prescription Management I considered prescription management with: Pain Medication Chronic Conditions Patient?s care impacted by: Other Social Determinants Patient?s care significantly limited by Social Determinants of Health including: Alcoholism and drug addiction in family, Problems related to primary support group and Other Social Determinant of Health Discharge Plan Discharge Clinical Impression: Muscle cramp Patient Disposition: Home, Self-Care Instructions: Leg Cramps (ED) Additional Instructions: your blood work was reassuring Your ultrasound was negative for blood clot Please increase fluid intake at home, eat bananas Plenty of water Have close follow up with her primary care doctor If you are unable to eat or drink have persistent or worsening pain / cramping or shortness of breath return to the emergency department Flexeril is a muscle relaxer, take at night as it makes you drowsy, do not drive, drink alcohol, or operate machinery while taking it Prescriptions: New cyclobenzaprine 5 mg tablet 5 mg PO Q8H PRN (Reason: pain (scale score 7-10)) 5 Days Qty: 14 0RF No Action ondansetron HCl 4 mg tablet 4 mg PO Q8H PRN (Reason: nausea and vomiting) Qty: 14 0RF albuterol sulfate 90 mcg/actuation HFA aerosol inhaler 1 inh inhalation QID PRN (Reason: shortness of breath or wheezing) Qty: 6.7 0RF ondansetron 4 mg tablet,disintegrating 4 mg PO Q8H PRN (Reason: nausea and vomiting) Qty: 10 0RF oxycodone 5 mg tablet 5 mg PO Q8H PRN (Reason: severe pain (scale score 7-10)) Qty: 6 0RF Rx Instructions: Partial Fill upon patient request. cyclobenzaprine 5 mg tablet 5 mg PO TID PRN (Reason: muscle spasm) 7 Days Qty: 21 0RF ondansetron 4 mg tablet,disintegrating 4 mg PO Q8H PRN (Reason: nausea and vomiting) Qty: 20 0RF bupropion HCl 300 mg tablet extended release 24 hr 300 mg PO QAM methylphenidate HCl [Concerta] 36 mg tablet extended release 24hr 36 mg PO DAILY levothyroxine 100 mcg tablet 100 mcg PO DAILY omeprazole magnesium 20 mg tablet,delayed release (DR/EC) 20 mg PO DAILY melatonin 5 mg tablet 5 mg PO BEDTIME PRN meloxicam 15 mg tablet 15 mg PO DAILY gabapentin 100 mg capsule See Rx Instructions PO BEDTIME Rx Instructions: orally bedtime; 100-300 up to 3x per day prn azithromycin 250 mg tablet See Rx Instructions PO .COMPLEX Qty: 6 0RF Rx Instructions: For 250 mg dose pack: take 500 mg today (day 1), then 250 mg for 4 days (days 2-5) PO fluconazole 150 mg tablet 150 mg PO Q3D Qty: 2 0RF Rx Instructions: may repeat second dose 72 hrs after first dose if symptoms persist fluticasone furoate-vilanterol [Breo Ellipta] 100-25 mcg/dose blister with device 1 inh inhalation DAILY Qty: 60 3RF Referrals: Adolfo Hooker MD [Primary Care Provider] - 5 days Stand Alone Forms: Work/School Release Interventions: ED Discharge Assessment Last Done: 08/19/24 18:34 Discharge Date/Time: 08/19/24 18:36 Print Language: Singaporean
[2024-08-19 14:06] LABS: MANUAL DIFF FLAG NO
[2024-08-19 14:08] LABS: Basophils Percent Auto 0.4 % (0-2); Eosinophils Absolute Auto 0.1 X10*3/uL (0.0-0.4); Eosinophils Percent Auto 1.7 % (0-4); Hematocrit 36.6 % (37.0-47.0); Hemoglobin 12.2 g/dl (12.0-16.0); Imm Gran Abs Auto 0.02 X10*3/uL (0.00-0.03); Imm Gran Pct Auto 0.2 % (0.0-0.4); Lymphocytes Absolute Auto 3.1 X10*3/uL (1.2-4.9); Lymphocytes Percent Auto 38.4 % (20-40); Mean Corpuscular HGB Conc 33.3 g/dl (31.0-35.0); Mean Corpuscular Hemoglobin 28.4 pg (27.0-33.0); Mean Corpuscular Volume 85.3 fL (80.0-98.0); Mean Platelet Volume 8.6 fL (9.4-12.3); Monocytes Absolute Auto 0.5 X10*3/uL (0.1-1.2); Monocytes Percent Auto 5.7 % (2-11); Neutrophils Absolute Auto 4.3 x10*3/uL (2.0-8.3); Neutrophils Percent Auto 53.6 % (45-73); Platelet Count 418 X10*3/uL (160-400); Red Blood Count 4.29 X10*6/uL (4.20-5.50); White Blood Count 8.1 X10*3/uL (4.8-10.8)
[2024-08-19 14:35] LABS: Alanine Aminotransferase 29 U/L (0-31); Albumin Level 4.1 g/dL (3.5-5.0); Alkaline Phosphatase 96 U/L (39-117); Anion Gap 12 (12-20); Aspartate Amino Transferase 28 U/L (5-31); Bilirubin Total 0.1 mg/dL (0.0-1.0); Blood Urea Nitrogen 9 mg/dL (9-16); Calcium 8.6 mg/dL (8.4-10.2); Carbon Dioxide 22 mmol/L (22-29); Chloride 108 mmol/L (96-108); Creatinine Clr Calc Pharmacy 95.9; Estimated Glomerular Filt Rate > 60; Glucose Random 97 mg/dL (60-115); HCG Quantitative < 2 mIU/mL; Magnesium 1.9 mg/dL (1.6-2.6); Potassium 3.7 mmol/L (3.3-5.1); Sodium 138 mmol/L (135-145); Total Protein 6.9 g/dL (6.5-8.0)
[2024-08-19 15:36] VITALS: BP 108/67; PULSE 74; RESP 18; TEMP 37.1; O2SAT 94
[2024-08-19] MEDS: 0.9 % Sodium Chloride 1,000 ML 999 ML IV ×2 (15:48→17:55)
[2024-08-19] MEDS: Cyclobenzaprine HCl 10 MG TABLET PO (15:53)
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
--- OUTSIDE RECORDS SUMMARY | 2024-08-19 16:09 | XMS_ITS | Clinical Summary ---
Author Organization [facility] ity Address [address] [place] [address] Care Team Providers Care Psychiatric Social Worker Supervisor Name Role Phone Unavailable Primary Care Provider [...]
--- OUTSIDE RECORDS SUMMARY | 2024-08-19 16:09 | XMS_ITS | Clinical Summary ---
Author Organization [facility] Address [address] [place] [address] Care Team Providers Care Bi Tri Operator Name Role Phone Adolfo Hooker MD Primary Care Provider [phone] Allergies Active Allergy Reactions Criticality Noted Date [...] PCV) 2005 Pap Smear (Ages 21-65) 2007 COVID-19 Vaccine (2023-2 5 season) 2023 04/07/2021, 03/10/2021, 02/27/2021 Influenza Vaccine 11/07/2024 02/22/2021, 01/22/2017 HPV Vaccines Aged Out No longer eligi ble based on patient's age to complete this topic Insurance [facility] (AUTO/LIABILITY) Care Teams Bi Tri Operator Relationship Specialty Start Date End Date Adolfo Hooker MD [address] [place] [address] PCP - General Family Medicine 05/20/23
--- NOTE | 2024-08-19 17:25 | PC.NURSE ---
Ultrasound being performed at this time at bedside. Results pending.
[2024-08-19 18:34] VITALS: BP 108/67; PULSE 74; RESP 18; TEMP 37.1; O2SAT 94
== END 2024-08-19 18:36 | disposition home or self-care (01) ==
PROVIDERS: Physician Assistant; Registered Nurse Emergency; Emergency Provider Emergency Medicine; PCP Internal Medicine
DX: R25.2 Cramp and spasm (principal); M54.50 Low back pain, unspecified; M79.662 Pain in left lower leg; F17.210 Nicotine dependence, cigarettes, uncomplicated
CPT/HCPCS: 36415; 80053; 82550; 83735; 84702; 85025; 93971; 96360; 96361; 99284

== ENCOUNTER → 2024-08-19 16:34 | Outpatient (BNV) | payer BC, MEDICAID, SELFPAY | PROVIDERS: Emergency Provider Emergency Medicine; PCP Internal Medicine; Visit Provider Radiology Diagnostic Radiology | DX: M79.662 Pain in left lower leg (principal) | CPT/HCPCS: 93971 ==

== ENCOUNTER 2024-08-26 15:44 | Outpatient (REF) | payer BC, MEDICAID, SELFPAY ==
--- NOTE | 2024-08-26 15:47 | PFT_ITS ---
Flows: FEV1: 132 % of predicted at 3.63 L FVC: 141 % of predicted at 4.68 L FEV1/FVC: 78 % Bronchodilator response: Absent Volumes: Total lung capacity: 128 % of predicted at 5.99 L Residual volume: 126 % of predicted at 1.45 L Slow vital capacity: 127 % of predicted at 4.54 L Expiratory reserve volume: 84 % of predicted at 0.91 L Diffusion capacity: Normal Impression: No obstructive or restrictive ventilatory defect. Increased total lung capacity suggests hyperinflation. Increased residual volume suggests air trapping. MTDD
[2024-08-26 16:25] VITALS: PULSE 87; O2SAT 98
--- OUTSIDE RECORDS SUMMARY | 2024-08-26 16:38 | XMS_ITS | Clinical Summary ---
Author Organization [facility] Address [address] [place] [address] Care Team Providers Care Manager Games Name Role Phone Adolfo Hooker MD Primary Care Provider [phone] Allergies Active Allergy Reactions Criticality Noted Date [...] patient's age to complete this topic Insurance [facility] TPL (AUTO/LIABILITY) Care Teams Manager Games Relationship Specialty Start Date End Date Adolfo Hooker MD [address] [place] [address] PCP - General Family Medicine 05/20/23
--- OUTSIDE RECORDS SUMMARY | 2024-08-26 16:38 | XMS_ITS | Clinical Summary ---
Author Organization [facility] ity Address [address] [place] [address] Care Team Providers Care Care Transition Coordinator Name Role Phone Unavailable Primary Care Provider [...]
== END 2024-08-26 15:45 | disposition home or self-care (01) ==
LOC: HO.RESP 15:44
PROVIDERS: PCP Internal Medicine; Visit Provider Nurse Practitioner Family
DX: J45.909 Unspecified asthma, uncomplicated (principal)
CPT/HCPCS: 94010; 94640; 94727; 94729

== ENCOUNTER → 2024-08-26 15:47 | Outpatient (BNV) | payer BC, MEDICAID, SELFPAY | PROVIDERS: PCP Internal Medicine; Visit Provider Internal Medicine Pulmonary Disease | DX: J45.909 Unspecified asthma, uncomplicated (principal) | CPT/HCPCS: 94060; 94727; 94729 ==

== ENCOUNTER 2024-08-29 13:55 | Outpatient (AMB) | payer BC, MEDICAID, SELFPAY ==
--- OUTSIDE RECORDS SUMMARY | 2024-08-29 13:57 | XMS_ITS | Clinical Summary ---
Author Organization [facility] ity Address [address] [place] [address] Care Team Providers Care Commodity Trader Name Role Phone Unavailable Primary Care Provider [...]
--- NOTE | 2024-08-29 14:07 | MHC.OFFVIS ---
Vital Signs 08/29/24 14:08 Height 5 ft 1 in Weight 195 lb 4 oz BMI 36.9 BP 110/82 Blood Pressure Location Rt brachial Position Sitting Pulse 98 Pulse Source Pulse Oximeter Pulse Oximetry (%) 99 Oxygen Delivery Method Room Air Intake Visit Reasons: Asthma Allergies aspirin [ASPIRIN] Allergy (Severe, Verified 08/29/24 14:11) ANAPHYLAXIS bee pollen [BEE STINGS] Allergy (Unknown, Verified 08/29/24 14:11) ANAPHYLAXIS latex [LATEX] Allergy (Unknown, Verified 08/29/24 14:11) RASH Sulfa (Sulfonamide Antibiotics) [SULFA (SULFONAMIDE ANTIBIOTICS)] Allergy (Unknown, Verified 08/29/24 14:11) RASH medroxyprogesterone [From Depo-Provera] Allergy (Verified 08/29/24 14:11) Unknown nitrofurantoin [From Macrobid] Allergy (Verified 08/29/24 14:11) Anaphylaxis HPI HPI Asthma: Details: Melba is a pleasant 39 year old, current tobacco smoker and vapes nicotine/THC, with 35+ pyh with underlying recurrent respiratory infections and h/o substance abuse. At the last visit, she was treated with azithromycin for bronchitic symptoms with resolution. She was also trialed on Breo for poor control of asthma, however could not tolerate due to DPI. She continues with chronic cough, intermittent wheezing and dyspnea. Today she presents to review PFT results. Of note, patient currently on doxycycline x 10 days for cellulitis secondary to spider bite. [facility] Medical History Hypothyroidism Gastroparesis Social History (Updated 08/29/24 @ 14:11 by Loreto Parsons CMA) Patient Tobacco Use Status: Current everyday Tobacco user Cigarette Packs Per Day: 0.5 Cigarettes Per Day: 10 Years Smoked: hx of 2ppd 20yrs/ Currently vapes as well. e-Cigarette/Vaping Use: Currently Using Substance Use Type: Marijuana Review of Systems Const Denies chills, Denies excessive sweating, Denies fever(s), Denies headache(s) and Denies night sweats Eyes Denies dry eyes and Denies irritation ENT Reports Normal hearing present, Denies headache(s), Denies nasal congestion, Denies nasal discharge, Denies post nasal drip and Denies sore throat Card Denies chest pain, Denies chest pain at rest, Denies chest pain with activity, Denies claudication, Denies leg edema, Denies orthopnea and Denies paroxysmal nocturnal dyspnea Resp Denies excessive phlegm production, Denies pain on inspiration, Denies pain with cough and Denies stridor Musc Denies myalgias Neuro Reports Normal hearing present and Denies headache(s) Endo Denies excessive sweating Otto/Lymph Denies lymphadenopathy Aller/Immun Denies seasonal rhinorrhea Physical Exam Vital Signs: Last Vital Signs Pulse 98 08/29/24 14:08 BP 110/82 08/29/24 14:08 Pulse Ox 99 08/29/24 14:08 Oxygen Delivery Method Room Air 08/29/24 14:08 BMI result Body Mass Index 36.9 Const General: cooperative, healthy appearing, comfortable, no acute distress, well developed and alert Nutritional Appearance: obese Orientation/consciousness: patient oriented x3 Limitations: no limitations HEENT Head: Yes normal to inspection, Yes normocephalic and Yes atraumatic Ears: hearing grossly normal bilaterally and external ears normal Eyes General: appearance normal, both eyes and all related structures Eyelids: Yes eyelids normal Sclerae: sclerae normal EOM: EOMs intact bilaterally Neck Neck: Yes normal visual inspection and Yes no lymphadenopathy Lymphatic: no lymphadenopathy noted Chest Chest palpation & inspection: normal inspection of the chest Resp Effort & Inspection: normal respiratory effort, able to speak in complete sentences, no audible wheezes, no cough, no stridor, not tachypneic, no tripod positioning and no use of accessory muscles Auscultation: clear to auscultation bilaterally Cardio Jugular venous distension: no JVD Rate: regular rate Rhythm: regular rhythm Skin Other: warm, dry General skin exam: no rashes or lesions noted Neuro General: patient oriented x3 Cranial nerves: Yes Normal hearing present Cognition (Neuro): normal cognition Gait exam (Neuro): Normal gait present Extrem General: Yes normal to inspection, Yes capillary refill normal, Yes no clubbing, cyanosis or edema and Yes no pedal edema Psych Appearance: grossly normal and well kempt Speech and movement: Normal speech and movement present and Clear speech present Affect: normal affect Attitude: cooperative Thought process: Normal thought process present Thought content: Normal thought content present Insight: Good insight present (Psych) Judgement: Good judgement present (Psych) Assessment & Plan Assessment & Plan (1) Asthma: Code(s): J45.909 - Unspecified asthma, uncomplicated Category: Medical (2) Environmental allergies: Code(s): Z91.09 - Other allergy status, other than to drugs and biological substances Category: Medical (3) Nicotine dependence, cigarettes, uncomplicated: Code(s): F17.210 - Nicotine dependence, cigarettes, uncomplicated Category: Medical (4) Chronic cough: Code(s): R05.3 - Chronic cough Category: Medical Plan Melba continues with poor control of asthma. Reviewed PFT which revealed no obstructive or restrictive ventilatory defect. Increased total lung capacity suggests hyperinflation. Increased residual volume suggests air trapping. Will switch Breo to Symbicort. Will send for chest CT for chronic cough and to assess for resolution of bilateral atelectasis on prior abdominal chest CT. Encouraged patient to obtain labs entered at prior visit to assess for an allergic component. All questions were answered and patient is in agreement of plan. Will follow up in 8-10 weeks or sooner if needed. Orders: Orders CT chest wo IV con Today J98.11 - Atelectasis, R05.3 - Chronic cough Medications: New budesonide-formoterol 80-4.5 mcg/actuation (Symbicort) 2 puffs inhalation Q12H 10.2 grams 6RF Discontinued fluticasone furoate-vilanterol 100-25 mcg/dose (Breo Ellipta) Discontinued Reason: Patient Completed Course 1 inh inhalation DAILY 60 ea 3RF Coding Level of Care Code Est Pt Level 4 (02723) Diagnoses Asthma J45.909 Environmental allergies Z91.09 Nicotine dependence, cigarettes, uncomplicated F17.210 Chronic cough R05.3
[2024-08-29 14:08] VITALS: BP 110/82; PULSE 98; O2SAT 99; BMI 36.9
== END 2024-08-29 14:46 | disposition home or self-care (01) ==
LOC: HO.HPSW 13:56
PROVIDERS: PCP Internal Medicine; Visit Provider Nurse Practitioner Family
DX: J45.909 Unspecified asthma, uncomplicated (principal); Z91.09 Other allergy status, other than to drugs and biological substances; F17.210 Nicotine dependence, cigarettes, uncomplicated; R05.3 Chronic cough
CPT/HCPCS: 99214

== ENCOUNTER 2024-10-31 08:44 | Outpatient (RCR) | payer BC, SELFPAY | END 2024-11-03 13:17 | disposition home or self-care (01) | LOC: HO.PHPA 08:44 | PROVIDERS: Visit Provider Psychiatry & Neurology Psychiatry | DX: F41.1 Generalized anxiety disorder (principal); F39 Unspecified mood [affective] disorder; F43.10 Post-traumatic stress disorder, unspecified; F11.21 Opioid dependence, in remission | CPT/HCPCS: 90791 ==

== ENCOUNTER 2024-11-19 15:40 | Outpatient (REF) | payer BC, SELFPAY ==
--- NOTE | ~2024-11-19 | CT_ITS ---
CLINICAL HISTORY: R05.3 - Chronic cough CT chest without contrast Comparison: None provided Findings: The heart is normal size. The visualized thyroid and mediastinum are unremarkable. No consolidation or effusion. There is hepatic steatosis. No acute fractures. IMPRESSION: 1. Unremarkable chest CT. Hepatic steatosis. This document has been electronically signed by: Garrett Baptiste MD on 11/20/2024 12:58:15
--- OUTSIDE RECORDS SUMMARY | 2024-11-19 15:42 | XMS_ITS | Clinical Summary ---
Author Organization [facility] Address [address] [place] [address] Care Team Providers Care Assistant Front End Manager Name Role Phone Adolfo Hooker MD Primary Care Provider [phone] Allergies Active Allergy Reactions Criticality Noted Date [...] 77 05/20/2023 3:14 AM EST Temperature 36.3 C (97.4 F) 05/20/2023 12:35 AM EST Respiratory Rate 18 05/20/2023 3:14 AM EST [...] patient's age to complete this topic Insurance [facility] (AUTO/LIABILITY) Care Teams Assistant Front End Manager Relationship Specialty Start Date End Date Adolfo Hooker MD [address] [place] [address] PCP - General Family Medicine 05/20/23
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
== END 2024-11-19 15:41 | disposition home or self-care (01) ==
LOC: HO.CT 15:40
PROVIDERS: Visit Provider Nurse Practitioner Family
DX: R05.3 Chronic cough (principal); J98.11 Atelectasis
CPT/HCPCS: 71250

== ENCOUNTER → 2024-11-19 15:43 | Outpatient (BNV) | payer BC, SELFPAY | PROVIDERS: Visit Provider Radiology Diagnostic Radiology | DX: R05.3 Chronic cough (principal); K76.0 Fatty (change of) liver, not elsewhere classified | CPT/HCPCS: 71250 ==

== ENCOUNTER → 2024-11-21 08:15 | Outpatient (BNV) | payer BC, SELFPAY | PROVIDERS: Visit Provider Psychiatry & Neurology Psychiatry | DX: F41.1 Generalized anxiety disorder (principal); F43.10 Post-traumatic stress disorder, unspecified; F39 Unspecified mood [affective] disorder; F11.21 Opioid dependence, in remission; F90.9 Attention-deficit hyperactivity disorder, unspecified type | CPT/HCPCS: 99213 ==

== ENCOUNTER 2024-12-05 08:03 | Outpatient (REF) | payer BC, SELFPAY ==
--- NOTE | 2024-12-05 08:07 | ECG_ITS ---
Test Reason : f39 e06.3 Blood Pressure : */* mmHG Vent. Rate : 69 BPM Atrial Rate : 69 BPM P-R Int : 128 ms QRS Dur : 84 ms QT Int : 388 ms P-R-T Axes : 31 30 28 degrees QTcB Int : 415 ms Normal sinus rhythm Normal ECG When compared with ECG of 27-Jul-2024 20:26, No significant change was found Referred By: Meghan Antonio Electronically Signed By: STEFANIE WOOD
--- OUTSIDE RECORDS SUMMARY | 2024-12-05 08:07 | XMS_ITS | Clinical Summary ---
Author Organization [facility] Address [address] [place] [address] Care Team Providers Care Shopping Centre Manager Name Role Phone Adolfo Hooker MD Primary Care Provider [phone] Allergies Active Allergy Reactions Criticality Noted Date [...] - 19+ 3-dose series) 2005 Pneumococcal Vaccine: Pediat camilo (0-5 Years) and At-Risk Patients (6 to 49 Years) (1 of 2 - PCV) 2005 Pap Smear (Ages 21-65) 2007 HPV Vaccines (1 - 3-dose SCDM series) 2013 COVID-19 Vaccine ( season) 2023 04/07/2021, 03/10/2021, 02/27/2021 Influenza Vaccine 11/07/2024 02/22/2021, 01/22/2017 Insurance [facility] (AUTO/LIABILITY) Care Teams Shopping Centre Manager Relationship Specialty Start Date End Date Adolfo Hooker MD [address] [place] [address] PCP - General Family Medicine 05/20/23
--- OUTSIDE RECORDS SUMMARY | 2024-12-05 08:07 | XMS_ITS | Clinical Summary ---
Author Organization [facility] ity Address [address] [place] [address] Care Team Providers Care Milking Machine Operator Name Role Phone Unavailable Primary Care Provider [...] Cervical Cancer Screening: P ap Smear 2007 COVID-19 Vaccine ( - 2023-2 5 season) 2023 Depression Screening 04/09/2024 Influenza Vaccine (#1) 2024 HIB Vaccines Aged Out No longer [...] 5 Years) and At-Risk Patients (6 to 49 Years) Aged Out No longer eligible b ased on patient's age to complete this topic RSV Immunization Patients Un jessica 20 months Aged Out No longer eligible b ased on patient's age to complete this topic Varicella Vaccines Aged Out No longer eligible based on patient's age to complete this topic
[2024-12-05 08:16] LABS: MANUAL DIFF FLAG NO
[2024-12-05 08:45] LABS: Hematocrit 39.3 % (37.0-47.0); Hemoglobin 13.1 g/dl (12.0-16.0); Imm Gran Abs Auto 0.03 X10*3/uL (0.00-0.03); Imm Gran Pct Auto 0.4 % (0.0-0.4); Lymphocytes Absolute Auto 2.4 X10*3/uL (1.2-4.9); Mean Corpuscular HGB Conc 33.3 g/dl (31.0-35.0); Mean Corpuscular Hemoglobin 28.9 pg (27.0-33.0); Mean Corpuscular Volume 86.6 fL (80.0-98.0); NRBC Abs Auto 0.000 X10*3/uL (0.0-0.012); NRBC Pct Auto 0.0 /100WBC (0.0-0.2); Platelet Count 405 X10*3/uL (160-400); Red Blood Count 4.54 X10*6/uL (4.20-5.50); White Blood Count 7.4 X10*3/uL (4.8-10.8)
[2024-12-05 08:56] LABS: Hemoglobin A1C 127.0226 umol/L; Total Hemoglobin (HGBA1C) 3400.2619 umol/L
[2024-12-05 09:29] LABS: Alanine Aminotransferase 24 U/L (0-31); Albumin Level 4.3 g/dL (3.5-5.0); Alkaline Phosphatase 85 U/L (39-117); Anion Gap 10 (12-20); Aspartate Amino Transferase 39 U/L (5-31); Blood Urea Nitrogen 9 mg/dL (9-16); Calcium 8.8 mg/dL (8.4-10.2); Carbon Dioxide 26 mmol/L (22-29); Chloride 109 mmol/L (96-108); Cholesterol 223 mg/dL (<200); Estimated Glomerular Filt Rate 58; HDL Cholesterol 35 mg/dL (>40); Potassium 3.9 mmol/L (3.3-5.1); Sodium 141 mmol/L (135-145); Total Protein 7.0 g/dL (6.5-8.0); Triglycerides 178 mg/dL (<150)
[2024-12-05 09:53] LABS: Ferritin 13 ng/mL (10-122); Free T4 (Free Thyroxine) 0.91 ng/dL (0.71-1.85); Thyroid Stimulating Hormone 10.83 uIU/mL (0.32-4.0)
[2024-12-05 09:54] LABS: Folate 5.4 ng/mL (> or = 4.0); Vitamin B12 178 pg/mL (200-900)
[2024-12-09 18:38] LABS: Thyroglobulin Antibodies <1 IU/mL (< or = 1)
== END 2024-12-05 08:04 | disposition home or self-care (01) ==
LOC: HO.LAB 08:03
PROVIDERS: Visit Provider Psychiatry & Neurology Psychiatry
DX: F39 Unspecified mood [affective] disorder (principal); Z13.1 Encounter for screening for diabetes mellitus; E06.3 Autoimmune thyroiditis
CPT/HCPCS: 36415; 80053; 80061; 82306; 82607; 82728; 82746; 83036; 83921; 84439; 84443; 84481; 85025; 86376; 86800; 93005

== ENCOUNTER → 2024-12-05 08:07 | Outpatient (BNV) | payer BC, SELFPAY | PROVIDERS: Visit Provider Internal Medicine | DX: F39 Unspecified mood [affective] disorder (principal); E06.3 Autoimmune thyroiditis | CPT/HCPCS: 93010 ==

== ENCOUNTER 2024-12-09 11:15 | Outpatient (RCR) | payer BC, SELFPAY ==
[2024-11-11 12:27] VITALS: BP 98/70; PULSE 76; TEMP 37.1
--- NOTE | 2024-11-11 15:06 | PC.ADMIT ---
Patient is a 39 year old partnered female who was referred to [facility] by [facility] crisis after patient self presented secondary to increased sxs of depression and anxiety. Patient stated her PCP prescribed Ativan for anxiety however after three days it was not effective thus she reached out to crisis for help. Patient reports history of substance use including Cocaine, Heroin, and Xanax. She reports she has not used these substances since 05/27/18. Patient stated she is currently using Marijuana daily using Marijuana dabs throughout the day and 10 mg of Marijuana at night. She reports she is using this for chronic all over body pain and is currently being worked up for possible fibroymalgia or rheumatoid arthritis. Patient reports she got in touch with her old sponsor. She does not want a health coach at this time as she reports she has not used in 6 years. Patient taking MOLLY from work for 4 months until February 21, 2025 to work on her mental health. 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 Patient reports feeling overwhelmed with all her health issues. Patient reports she has had Covid 9 times and has a dx of long Covid. Patient is alert and oriented x4. She is calm and cooperative. She presented with depressed mood and anxious affect. Regarding SI patient stated, Just passive thoughts. Patient denied any plan or intent to kill herself, no HI. She was given a copy of her safety plan if needed. Medications updated with patient and patient's pharmacy. She reports she has not taken some of her medications in the past 2 weeks d/t difficulty swallowing her medications as she gags. Patient did state she is taking Levothyroxine, Melatonin, Omeprazole and Ativan prescriptions. Patient thinks it may be because she does not want to take some of her medications. Stated she is able to swallow food and water without incident. Patient to discuss medications with Dr. Kaufman. Medication education provided.
--- NOTE | 2024-11-11 23:45 | HO.PS.ADMBH ---
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. I was just diagnosed with autism...I took a 4 month MOLLY from work for physical and mental health issues and panic attacks. What she reportedly thought of as 'depression' has likely been autistic burn-out . ALso complains of anxiety through the roof . SHe also adds that She has depression which has been misdiagnosed as bipolar disorder over the years. SHe has a remote history of IPLOC >20 years ago, with a couple of respite admissions in the past 3 years ( I usually leave < 48 hours ). Other stressors include just getting over COVID for the 9th time, and relationship dynamic and stressors with being recently informed by current partner that they are polyamorous. SHe has recently been restarted [facility] a benzod[facility]ine [facility] Past Psychiatric History: REmote IPLOC >20 years ago Respite x2 in past 3 years No prior PHP, IOP, detox/rehab admissions SA: past history of SI thoughts, respite for feeling unsafe SIB: denies Aggression or antisocial behaviors: denies Denies legal history Pertinent developmental hx: Previous diagnoses: Psychiatrist: Arlene Pollock Therapist: Julieta Howard PCP: Previous trials: Cymbalta, WEllbutrin, ZOloft, Effexor, Seroquel, possibly risperidone, gabapentin, lithium, Lamictal, Abilify, Trileptal, Depakote, clonidine, prazosin CURRENT MEDICATIONS: [facility] Medical History (Updated 11/12/24 @ 11:35 by Kristine Kaufman MD) Hepatitis C Enlarged liver History of MRSA infection Psychogenic nonepileptic seizure Fibroid Tibial fracture EDS (Ana M-Danlos syndrome) Hypoglycemia De Quervain's tenosynovitis Asthma Long COVID IBS (irritable bowel syndrome) Abdelrahman's thyroiditis Hypothyroidism Gastroparesis Narrative: Non-epileptic seizures in past for a 4 year period (worked up by neurology ruled out epileptic sz) stable x >5 years Surgeries: denies Concussions/TBI: yes Ht: 5'1 Wt: 190 lbs ALL: ASA, Latex, macrobid, sulfa, depo-provera, Keppra, bees Surgical History (Updated 11/11/24 @ 12:27 by Carmelina Schilling RN) History of tonsillectomy and adenoidectomy Social History: Works at [employer] Substance History: Alcohol use - rare, like twice a year Nicotine 1/2 ppd vape Cannabis use in the past, none since 05/27 Diagnostics Vital Signs (24Hr): Vital Signs - 24 hr 11/11/24 12:27 Temperature 98.7 F Pulse Rate 76 Blood Pressure 98/70 Meds/Allergies Meds Home Medications ?Medication ?Instructions ?Recorded ?Confirmed ?Type gabapentin 100 mg capsule See Rx Instructions PO BEDTIME 06/04/24 11/12/24 History melatonin 5 mg tablet 7.5 mg PO BEDTIME PRN Insomnia 06/04/24 11/12/24 History omeprazole magnesium 20 mg 20 mg PO BID 06/04/24 11/12/24 History tablet,delayed release hydroxyzine HCl 25 mg tablet 25 mg PO TID PRN Anxiety 08/29/24 11/12/24 History sertraline 100 mg tablet 100 mg PO DAILY 08/29/24 11/12/24 History viloxazine 200 mg capsule,extended 200 mg PO DAILY 08/29/24 11/12/24 History release 24 hr (Qelbree) levothyroxine 112 mcg tablet 112 mcg PO QAM 11/12/24 11/12/24 History lorazepam 0.5 mg tablet 0.5 mg PO Q8H PRN anxiety 11/12/24 11/12/24 History Allergies Allergies Allergy/AdvReac Type Severity Reaction Status Date / Time aspirin (ASPIRIN) Allergy Severe ANAPHYLAXIS Verified 08/29/24 14:11 bee pollen (BEE STINGS) Allergy Unknown ANAPHYLAXIS Verified 08/29/24 14:11 latex (LATEX) Allergy Unknown RASH Verified 08/29/24 14:11 Sulfa (Sulfonamide Allergy Unknown RASH Verified 08/29/24 14:11 Antibiotics) (SULFA (SULFONAMIDE ANTIBIOTICS)) medroxyprogesterone (From Allergy Unknown Verified 08/29/24 14:11 Depo-Provera) nitrofurantoin (From Allergy Anaphylaxis Verified 08/29/24 14:11 Macrobid) Mental Status Exam Mental Status Exam Narrative: Alert, oriented, in no acute distress. Calm, cooperative, engaged. No psychomotor agitation or neurovegetative retardation. Eye contact maintained. Mood depressed, affect constricted. Speech normal. Thought process linear, coherent. Thought content related to stressors, transient hopelessness, denies SI or HI. No paranoia or delusional content elicited. No evidence of psychosis. Insight and judgment - fair but adequate. Assessment & Plan Assessment & Plan (1) KELECHI (generalized anxiety disorder): Status: Acute Code(s): F41.1 - Generalized anxiety disorder (2) PTSD (post-traumatic stress disorder): Status: Acute Code(s): F43.10 - Post-traumatic stress disorder, unspecified (3) Mood disorder: Status: Acute Code(s): F39 - Unspecified mood [affective] disorder (4) Opioid dependence in remission: Status: Acute Code(s): F11.21 - Opioid dependence, in remission (5) Attention-deficit hyperactivity disorder, unspecified type: Status: Acute Code(s): F90.9 - Attention-deficit hyperactivity disorder, unspecified type Plan Admit to [facility] VS reviewed: afebrile, BP ;? bpm continue regular medications for now will fill pregabalin 25 mg BID-TID for now to see if covered by insurance and if effective for pain, anxiety consider starting Latuda 20 mg qd w meals Routine lab work as indicated EKG, routine for baseline QTc for medication considerations as indicated UDS as indicated MassPat reviewed Continue to monitor as per protocol Patient educated on: diagnosis and medication risk/benefits Informed Consent: understands Reason for continued partial hosp. stay Substantial Risk for: inability to function and med/psych decompensation Certification I certify that partial hospital treatment is medically necessary due to the symptoms and problems resulting from the patient's mental illness and the failure to treat the patient at the partial hospital level of care would likely result in the patient requiring inpatient psychiatric care which could not be prevented at a less intensive level of care. Time Spent With Patient Time: Total time managing care of this patient today __60__ minutes.
[2024-11-12 06:39] LABS: Cannabinoid Screen Urine POSITIVE (Not Detect)
--- NOTE | 2024-11-13 15:44 | HO.PHP ---
Patient's case was opened and reviewed in treatment team
--- NOTE | 2024-11-21 13:59 | HO.PHPPROGNO ---
Subjective Subjective Date of Service: 11/20/24 Reason For Visit: KELECHI Interim History: Patient seen for follow up. Has missed a number of days at the program. Last week missed and Sunday due to migraine headache. Missed Sunday and Sunday this week due to high level of anxiety I couldnt leave the house . She reports starting to compulsively scratch her arms (superficial excoriation noted). She is askng for help with anxiety, but says she has not picked up the Lyrica yet (although its been at the pharmacy) due to the severity of her anxiety. She plans to go pick it up and start on it today. Medication Compliance: Yes Side effects from medications: No Attending Groups: Yes Review of Systems Acute medical concerns: No Mental Status Exam Mental Status Exam Narrative: Alert, oriented, in no acute distress. Calm, cooperative, engaged. No psychomotor agitation or neurovegetative retardation. Eye contact maintained. Mood anxious, depressed, affect variable, no lability or irritability noted. Speech normal. Thought process linear, coherent. Thought content related to stressors, transient hopelessness, denies SI or HI. No paranoia or delusional content elicited. No evidence of psychosis. Insight and judgment - fair but adequate. Assessment & Plan Assessment & Plan (1) KELECHI (generalized anxiety disorder): Status: Acute Code(s): F41.1 - Generalized anxiety disorder (2) PTSD (post-traumatic stress disorder): Status: Acute Code(s): F43.10 - Post-traumatic stress disorder, unspecified (3) Mood disorder: Status: Acute Code(s): F39 - Unspecified mood [affective] disorder (4) Opioid dependence in remission: Status: Acute Code(s): F11.21 - Opioid dependence, in remission (5) Attention-deficit hyperactivity disorder, unspecified type: Status: Acute Code(s): F90.9 - Attention-deficit hyperactivity disorder, unspecified type Plan continue PHP start pregabalin 25 mg BID-TID for now, as tolerated, to target pain, anxiety continue other regular medication Routine lab work as indicated EKG, routine for baseline QTc for medication considerations as indicated UDS as indicated VS reviewed: afebrile, BP 98/70;?76 bpm Continue to monitor as per protocol Patient educated on: diagnosis and medication risk/benefits Informed Consent: understands Reason for contiued partial hosp. stay Substantial Risk for: inability to function and med/psych decompensation Certification I certify that partial hospital treatment is medically necessary due to the symptoms and problems resulting from the patient's mental illness and the failure to treat the patient at the partial hospital level of care would likely result in the patient requiring inpatient psychiatric care which could not be prevented at a less intensive level of care. Total time managing care of this patient today __30__ minutes. Discharge Plan Discharge Attending provider: Kristine Kaufman Medications: New pregabalin 25 mg capsule 25 mg PO TID Qty: 45 0RF lurasidone 40 mg tablet 40 mg PO QPM Qty: 14 0RF Rx Instructions: must administer with food (at least 350 calories) Continued ondansetron HCl 4 mg tablet 4 mg PO Q8H PRN (Reason: nausea and vomiting) Qty: 14 0RF albuterol sulfate 90 mcg/actuation HFA aerosol inhaler 1 inh inhalation QID PRN (Reason: shortness of breath or wheezing) Qty: 6.7 0RF omeprazole magnesium 20 mg tablet,delayed release (DR/EC) 20 mg PO BID melatonin 5 mg tablet 7.5 mg PO BEDTIME PRN (Reason: Insomnia) Rx Instructions: take 1.5 tabs at bedtime gabapentin 100 mg capsule See Rx Instructions PO BEDTIME Rx Instructions: orally bedtime; 100-300 up to 3x per day prn Last filled 02/2024 Qelbree 200 mg capsule,extended release 24hr 200 mg PO DAILY sertraline 100 mg tablet 100 mg PO DAILY hydroxyzine HCl 25 mg tablet 25 mg PO TID PRN (Reason: Anxiety) budesonide-formoterol [Symbicort] 80-4.5 mcg/actuation HFA aerosol inhaler 2 puff inhalation Q12H Qty: 10.2 6RF No Action levothyroxine 112 mcg tablet 112 mcg PO QAM Rx Instructions: Last filled 06/08/24 90 day supply. lorazepam 0.5 mg tablet 0.5 mg PO Q8H PRN (Reason: anxiety) Print Language: Kinyarwanda
--- NOTE | 2024-11-24 07:52 | PM.EVENT ---
Event Note Date of Service: 11/22/24 Time Spent With Patient Time: Total time managing care of this patient today __30__ minutes.
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
--- NOTE | 2024-12-01 15:47 | P.PNPSP_ITS ---
Subjective Subjective Date of Service: 12/01/24 Reason For Visit: KELECHI Interim History: Pt has been experiencing jaw pain since starting 20 mg Latuda. Worsened w/ 40 mg, improved w/ lowering back to 20 mg but still bothersome. feels like she's clenching. Hasn't tried benadryl or cogentin w/ it but willing to do so Also has teena vomiting/dry heaving throughout the day. Attributes this to anxiety, as the sx have improved after vomiting when it was related to gastroenteritis in past. Denies that it started w/ the Latuda. Sleep has been poor due to the anxiety and vomiting. Ativan had helped but made her too sedated to function during the day. Depression is primary issue, since ~age 13. Anxiety is less of a concern usually. Discussed upcoming surgery for HPV condyloma, which has been painful. 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 Medication Compliance: Yes Side effects from medications: Yes (Jaw pain- improved w/ latuda taper back from 40 to 20 mg but still painfu) Attending Groups: Yes Mental Status Exam Mental Status Exam Narrative: Grooming/hygiene wnl. Good eye contact Motor activity is calm. Steady gait. no tics, tremors or dyskinesias. Speech is fluent Mood is anxious and tired Affect appropriate, reactive but brightens up appropriately Thought process goal directed Denies SI or violent ideation I/J intact A/O x 3 Denies SI Assessment & Plan Assessment & Plan (1) KELECHI (generalized anxiety disorder): Status: Acute Code(s): F41.1 - Generalized anxiety disorder (2) PTSD (post-traumatic stress disorder): Status: Acute Code(s): F43.10 - Post-traumatic stress disorder, unspecified (3) Attention-deficit hyperactivity disorder, unspecified type: Status: Acute Code(s): F90.9 - Attention-deficit hyperactivity disorder, unspecified type Plan Pt is agreeable w/ plan to: Continue PHP Trial benadryl 25-50 mg qhs for EPS related to Latuda 20 mg. If this doesn't help, may need to consider switching Latuda to alterantive Can take hydroxyzine 25 mg bid prn for anxiety and/or nausea/vomiting during the day Trial NAC off-label for anxiety, insomnia starting at 600 mg qam x 1 wk then 600 mg bid. Pt had expressed interest in non-pharmaceutical options to manage anxiety Continue: Latuda 20 mg qd melatonin 7.5 mg qhs viloxazine 200 mg ER qd pregabalin 25 mg tid zofran prn lorazepam .5 mg q 8 hr prn levothyroxine 112 mcg qd gabapentin *Ordered TFTS CMP CBC with diff B12, folate, ferritin Prior Med trials: SSRIs: Zoloft, lexapro, prozac at 19 y/o-- almost killed self SNRIs: Cymbalta x 2 yrs- no benefit; Effexor- no benefit Wellbutrin- too activating Antipsychotics: Seroquel- over-sedated, weight gain; risperidone- too sedating, Abilify- no benefit Mirtazapine Trazodone- oversedated Topamax- helped with headaches, not with mood gabapentin- no benefit, experienced withdraw w/ taper Clonidine, prazosin Mood Stabilizers: [place] ( I'm not bipolar ), LMT- no benefit, unclear what dose she took, Trileptal, VPA -Pt reports that the mood stabilizers made her 'manic - engaged in risky situations s/a drinking, sitting on the edge of a adrianne while rock climbing Other AEDs- Keppra for what turned out to be PNES Patient educated on: diagnosis, medication risk/benefits, therapeutic strategies and medical condition Informed Consent: understands Reason for contiued partial hosp. stay Substantial Risk for: med/psych decompensation Certification I certify that partial hospital treatment is medically necessary due to the symptoms and problems resulting from the patient's mental illness and the failure to treat the patient at the partial hospital level of care would likely result in the patient requiring inpatient psychiatric care which could not be prevented at a less intensive level of care. Total time managing care of this patient today __50__ minutes. Discharge Plan Discharge Attending provider: Kristine Kaufman Medications: New pregabalin 25 mg capsule 25 mg PO TID Qty: 45 0RF lurasidone 40 mg tablet 40 mg PO QPM Qty: 14 0RF Rx Instructions: must administer with food (at least 350 calories) acetylcysteine [NAC] 600 mg capsule See Rx Instructions .ROUTE .COMPLEX 28 Days Qty: 49 0RF Rx Instructions: Take 1 cap po qhs x 7 days then take 1 cap po bid diphenhydramine HCl 25 mg capsule See Rx Instructions .ROUTE .COMPLEX 14 Days Qty: 28 0RF Rx Instructions: Take 1-2 caps po qhs prn for neck stiffness after taking Latuda Continued ondansetron HCl 4 mg tablet 4 mg PO Q8H PRN (Reason: nausea and vomiting) Qty: 14 0RF albuterol sulfate 90 mcg/actuation HFA aerosol inhaler 1 inh inhalation QID PRN (Reason: shortness of breath or wheezing) Qty: 6.7 0RF omeprazole magnesium 20 mg tablet,delayed release (DR/EC) 20 mg PO BID melatonin 5 mg tablet 7.5 mg PO BEDTIME PRN (Reason: Insomnia) Rx Instructions: take 1.5 tabs at bedtime gabapentin 100 mg capsule See Rx Instructions PO BEDTIME Rx Instructions: orally bedtime; 100-300 up to 3x per day prn Last filled 02/2024 Qelbree 200 mg capsule,extended release 24hr 200 mg PO DAILY sertraline 100 mg tablet 100 mg PO DAILY hydroxyzine HCl 25 mg tablet 25 mg PO TID PRN (Reason: Anxiety) budesonide-formoterol [Symbicort] 80-4.5 mcg/actuation HFA aerosol inhaler 2 puff inhalation Q12H Qty: 10.2 6RF No Action levothyroxine 112 mcg tablet 112 mcg PO QAM Rx Instructions: Last filled 06/08/24 90 day supply. lorazepam 0.5 mg tablet 0.5 mg PO Q8H PRN (Reason: anxiety) Print Language: Swedish
--- NOTE | 2024-12-03 20:05 | P.PNPSP_ITS ---
Subjective Subjective Date of Service: 12/02/24 Reason For Visit: KELECHI Assessment & Plan Certification I certify that partial hospital treatment is medically necessary due to the symptoms and problems resulting from the patient's mental illness and the failure to treat the patient at the partial hospital level of care would likely result in the patient requiring inpatient psychiatric care which could not be prevented at a less intensive level of care. Total time managing care of this patient today ____ minutes. Discharge Plan Discharge Attending provider: Kristine Kaufman Medications: New pregabalin 25 mg capsule 25 mg PO TID Qty: 45 0RF lurasidone 40 mg tablet 40 mg PO QPM Qty: 14 0RF Rx Instructions: must administer with food (at least 350 calories) acetylcysteine [NAC] 600 mg capsule See Rx Instructions .ROUTE .COMPLEX 28 Days Qty: 49 0RF Rx Instructions: Take 1 cap po qhs x 7 days then take 1 cap po bid diphenhydramine HCl 25 mg capsule See Rx Instructions .ROUTE .COMPLEX 14 Days Qty: 28 0RF Rx Instructions: Take 1-2 caps po qhs prn for neck stiffness after taking Latuda Continued ondansetron HCl 4 mg tablet 4 mg PO Q8H PRN (Reason: nausea and vomiting) Qty: 14 0RF albuterol sulfate 90 mcg/actuation HFA aerosol inhaler 1 inh inhalation QID PRN (Reason: shortness of breath or wheezing) Qty: 6.7 0RF omeprazole magnesium 20 mg tablet,delayed release (DR/EC) 20 mg PO BID melatonin 5 mg tablet 7.5 mg PO BEDTIME PRN (Reason: Insomnia) Rx Instructions: take 1.5 tabs at bedtime gabapentin 100 mg capsule See Rx Instructions PO BEDTIME Rx Instructions: orally bedtime; 100-300 up to 3x per day prn Last filled 02/2024 Qelbree 200 mg capsule,extended release 24hr 200 mg PO DAILY sertraline 100 mg tablet 100 mg PO DAILY hydroxyzine HCl 25 mg tablet 25 mg PO TID PRN (Reason: Anxiety) budesonide-formoterol [Symbicort] 80-4.5 mcg/actuation HFA aerosol inhaler 2 puff inhalation Q12H Qty: 10.2 6RF No Action levothyroxine 112 mcg tablet 112 mcg PO QAM Rx Instructions: Last filled 3/2/25 90 day supply. lorazepam 0.5 mg tablet 0.5 mg PO Q8H PRN (Reason: anxiety) Print Language: Grenadian
--- NOTE | 2024-12-04 13:04 | HO.PHP ---
Engraver Wood met with Melba to check in about her reports from group. Melba reported that she was going home for the day due to feeling she can cope better there. Melba reported no safety concerns for returning home and will return to program tomorrow.
--- NOTE | 2024-12-05 16:47 | HO.PHPPROGNO ---
Subjective Subjective Date of Service: 12/05/24 Reason For Visit: KELECHI Interim History: Jaw pain significantly improved w/ Benadryl + Latuda 40 mg last night. Pt wants to continue the combination for now. She's interested in TMS and looked into it previously but didn't think she'd be a candidate due to h/o PNES. I explained that h/o PNES is not a condraindication for TMS if she has no h/o epileptic seizures (which she doesn't). Reviewed lab results, including TSH of 10.83, free T4 in low normal range (0.91). Thyroid Ab results pending. Pt takes levothyroxine 112 mcg consistently, separate from her other meds and at least 60 min prior to eating/drinking. Pt endorses fatigue, brain fog, muscle aches, dry itchy skin, brittle hair. Labs also signif for mild thrombocytosis but improved since May; low vit B12 (178), AST 39 (all other LFTs wnl), HLD. Advised pt to f/u with her PCP for the above issues. Medication Compliance: Yes Side effects from medications: Yes (Jaw pain improved w/ Benadryl, now mild) Attending Groups: Yes Mental Status Exam Mental Status Exam Narrative: Appearance: Casually dressed. Grooming/hygiene wnl. Good eye contact Attitude:Cooperative Speech: Fluent and wnl in regard to volume, tone, prosody Motor activity: Calm and without any tics, tremors or dyskinesias. Steady gait Mood: better Affect: appropriate, reactive, generally bright Thought process: goal directed and without evidence of formal thought disorder Thought content: as noted above. Future oriented. Denies SI Perception: does not appear to respond to internal stimuli Alert/oriented in all spheres Cognition grossly intact Insight: intact Judgment: intact Assessment & Plan Assessment & Plan (1) PTSD (post-traumatic stress disorder): Status: Acute Code(s): F43.10 - Post-traumatic stress disorder, unspecified (2) KELECHI (generalized anxiety disorder): Status: Acute Code(s): F41.1 - Generalized anxiety disorder (3) Attention-deficit hyperactivity disorder, unspecified type: Status: Acute Code(s): F90.9 - Attention-deficit hyperactivity disorder, unspecified type Plan Continue PHP. Discharge pending for 9/2 Pt agreeable w/ plan to continue Latuda 40 mg qhs + Benadryl 25-50 mg qhs prn for EPS Pt advised to f/u with her PCP and/or patient registration specialist for management of hypothyroidism/Hashimotos- thyroid Ab results pending; HLD Discussed non-pharm strategies for management of PTSD/depression including TMS, acupuncture, meditation, psychotherapy. Patient educated on: diagnosis, medication risk/benefits, TMS, therapeutic strategies and medical condition Informed Consent: understands Reason for contiued partial hosp. stay Substantial Risk for: med/psych decompensation Certification I certify that partial hospital treatment is medically necessary due to the symptoms and problems resulting from the patient's mental illness and the failure to treat the patient at the partial hospital level of care would likely result in the patient requiring inpatient psychiatric care which could not be prevented at a less intensive level of care. Total time managing care of this patient today __45__ minutes. Discharge Plan Discharge Attending provider: Kristine Kaufman Medications: New pregabalin 25 mg capsule 25 mg PO TID Qty: 45 0RF acetylcysteine [NAC] 600 mg capsule See Rx Instructions .ROUTE .COMPLEX 28 Days Qty: 49 0RF Rx Instructions: Take 1 cap po qhs x 7 days then take 1 cap po bid diphenhydramine HCl 25 mg capsule See Rx Instructions .ROUTE .COMPLEX 14 Days Qty: 28 0RF Rx Instructions: Take 1-2 caps po qhs prn for neck stiffness after taking Latuda Continued ondansetron HCl 4 mg tablet 4 mg PO Q8H PRN (Reason: nausea and vomiting) Qty: 14 0RF albuterol sulfate 90 mcg/actuation HFA aerosol inhaler 1 inh inhalation QID PRN (Reason: shortness of breath or wheezing) Qty: 6.7 0RF lurasidone 40 mg tablet 40 mg PO QPM Qty: 14 0RF Rx Instructions: must administer with food (at least 350 calories) omeprazole magnesium 20 mg tablet,delayed release (DR/EC) 20 mg PO BID melatonin 5 mg tablet 7.5 mg PO BEDTIME PRN (Reason: Insomnia) Rx Instructions: take 1.5 tabs at bedtime gabapentin 100 mg capsule See Rx Instructions PO BEDTIME Rx Instructions: orally bedtime; 100-300 up to 3x per day prn Last filled 02/2024 Qelbree 200 mg capsule,extended release 24hr 200 mg PO DAILY sertraline 100 mg tablet 100 mg PO DAILY hydroxyzine HCl 25 mg tablet 25 mg PO TID PRN (Reason: Anxiety) budesonide-formoterol [Symbicort] 80-4.5 mcg/actuation HFA aerosol inhaler 2 puff inhalation Q12H Qty: 10.2 6RF No Action levothyroxine 112 mcg tablet 112 mcg PO QAM Rx Instructions: Last filled 06/08/24 90 day supply. lorazepam 0.5 mg tablet 0.5 mg PO Q8H PRN (Reason: anxiety) Stand Alone Forms: Patient Portal Discharge page Print Language: Swiss
--- NOTE | 2024-12-09 12:19 | PC.NURSE ---
Patient reports she has an upcoming appointment with her liver trimmer. Patient given a copy of her lab results including TSH 10.83 to bring to her appointment. Patient reviewed lab results with Dr. Antonio when she met with her last Sunday.
== END 2024-12-09 23:59 | disposition home or self-care (01) ==
LOC: HO.PHPA 11:15
PROVIDERS: Visit Provider Psychiatry & Neurology Psychiatry
DX: F41.1 Generalized anxiety disorder (principal); F43.10 Post-traumatic stress disorder, unspecified; F39 Unspecified mood [affective] disorder; F90.9 Attention-deficit hyperactivity disorder, unspecified type; F11.21 Opioid dependence, in remission; Z79.899 Other long term (current) drug therapy
CPT/HCPCS: 80307; 90791; 90853

== ENCOUNTER 2024-12-17 11:02 | Outpatient (REF) | payer BC, SELFPAY ==
[2024-12-17 14:37] LABS: Hematocrit 38.0 % (37.0-47.0); Hemoglobin 12.8 g/dl (12.0-16.0); Imm Gran Abs Auto 0.04 X10*3/uL (0.00-0.03); Imm Gran Pct Auto 0.6 % (0.0-0.4); Lymphocytes Absolute Auto 2.1 X10*3/uL (1.2-4.9); MANUAL DIFF FLAG NO; Mean Corpuscular HGB Conc 33.7 g/dl (31.0-35.0); Mean Corpuscular Hemoglobin 29.2 pg (27.0-33.0); Mean Corpuscular Volume 86.6 fL (80.0-98.0); NRBC Abs Auto 0.000 X10*3/uL (0.0-0.012); NRBC Pct Auto 0.0 /100WBC (0.0-0.2); Platelet Count 412 X10*3/uL (160-400); Red Blood Count 4.39 X10*6/uL (4.20-5.50); White Blood Count 6.5 X10*3/uL (4.8-10.8)
[2024-12-18 11:32] LABS: Immunoglobulin G Subclass 1 473 mg/dL (382-929); Immunoglobulin G Subclass 2 313 mg/dL (241-700); Immunoglobulin G Subclass 3 89 mg/dL (22-178); Immunoglobulin G Subclass 4 1.6 mg/dL (4-86); Immunoglobulin G Total 814 mg/dL (600-1640)
[2024-12-22 19:03] LABS: Class Alternaria alternata 0; Class Aspergillus fumigatus 0; Class Bermuda Grass 0; Class Birch 0; Class Cat Dander 0; Class Cladosporium herbarum 0; Class Cockroach 0; Class Common Ragweed 0; Class Cottonwood 0; Class Derm. pterony 0; Class Dermatophagoides farinae 0; Class Dog Dander 0; Class Elm 0; Class Maple Box Elder 0; Class Mountain Cedar 0; Class Mouse Urine Protein 0; Class Mugwort 0; Class Oak 0; Class Penicillium crysogenum 0; Class Rough Pigweed 0; Class Sheep Sorrel 0; Class Sycamore 0; Class Timothy Grass 0; Class Walnut Tree 0; Class White Ash 0; Class White Mulberry 0; D002 - IgE D farinae <0.10 kU/L; E001 - IgE Cat Dander <0.10 kU/L; E005 - IgE Dog Dander <0.10 kU/L; G006 - IgE Timothy Grass <0.10 kU/L; I006-IgE Cockroach, German <0.10 kU/L; M002 - IgE Cladosporium herbar <0.10 kU/L; M003 - IgE Aspergillus fumigat <0.10 kU/L; M006 - IgE Alternaria alternat <0.10 kU/L; T001 IgE Maple/Box Elder <0.10 kU/L; T006 - IgE Cedar, Mountain <0.10 kU/L; T007 - IgE Oak, White <0.10 kU/L; T008 IgE Elm, American <0.10 kU/L; T010 - IgE Walnut <0.10 kU/L; T011 - IgE Maple Leaf Sycamore <0.10 kU/L; T014 - IgE Cottonwood <0.10 kU/L; T015 - IgE Ash, White <0.10 kU/L; T070 - IgE White Mulberry <0.10 kU/L; W001 - IgE Ragweed, Short <0.10 kU/L; W006 - IgE Mugwort <0.10 kU/L; W014 IgE Pigweed, Common <0.10 kU/L; W018 IgE Sheep Sorrel <0.10 kU/L
== END 2024-12-17 11:03 | disposition home or self-care (01) ==
LOC: HO.WFDLDS 11:02
PROVIDERS: Visit Provider Nurse Practitioner Family
DX: J45.909 Unspecified asthma, uncomplicated (principal); J98.8 Other specified respiratory disorders; F17.210 Nicotine dependence, cigarettes, uncomplicated; Z91.09 Other allergy status, other than to drugs and biological substances
CPT/HCPCS: 36415; 82784; 82785; 85025; 86003

== ENCOUNTER 2024-12-17 11:02 | Outpatient (AMB) | payer BC, SELFPAY ==
--- NOTE | 2024-12-17 11:04 | A.OFFVIS_ITS ---
Vital Signs 12/17/24 11:05 Height 5 ft 1 in Weight 191 lb 6 oz BMI 36.2 BP 98/70 Blood Pressure Location Lt brachial Position Sitting Pulse 85 Pulse Source Pulse Oximeter Pulse Oximetry (%) 96 Oxygen Delivery Method Room Air Intake Visit Reasons: Asthma/ CT FU Allergies aspirin (ASPIRIN) Allergy (Severe, Verified 08/29/24 14:11) ANAPHYLAXIS levetiracetam (From Keppra) Allergy (Intermediate, Verified 12/17/24 11:09) Hives bee pollen (BEE STINGS) Allergy (Unknown, Verified 08/29/24 14:11) ANAPHYLAXIS latex (LATEX) Allergy (Unknown, Verified 08/29/24 14:11) RASH Sulfa (Sulfonamide Antibiotics) (SULFA (SULFONAMIDE ANTIBIOTICS)) Allergy (Unknown, Verified 08/29/24 14:11) RASH medroxyprogesterone (From Depo-Provera) Allergy (Verified 08/29/24 14:11) Unknown nitrofurantoin (From Macrobid) Allergy (Verified 08/29/24 14:11) Anaphylaxis HPI HPI Asthma/ CT FU: Details: Melba is a pleasant 39 year old, current 35+ pack year smoker and vapes nicotine/THC, with underlying asthma, recurrent respiratory infections and h/o substance abuse. She was also trialed on Breo, however could not tolerate due to DPI and was switched to Symbicort which she admits to not using consistently. She continues with chronic cough with clear sputum, intermittent wheezing and dyspnea. She endorses yellowish mucus on occasion associated with nasal/sinus congestion. She currently denies chest congestion, fever or chills. Since the last visit she did contract COVID19 reportedly for the 9th time which she feels is significantly impacting her respiratory status. Prior CXR revealed atelectasis and was sent for chest CT to further evaluate. Today she presents to review results of [facility] Medical History (Updated 11/12/24 @ 11:35 by Kristine Kaufman MD) Hepatitis C Enlarged liver History of MRSA infection Psychogenic nonepileptic seizure Fibroid Tibial fracture EDS (Ana M-Danlos syndrome) Hypoglycemia De Quervain's tenosynovitis Asthma Long COVID IBS (irritable bowel syndrome) Abdelrahman's thyroiditis Hypothyroidism Gastroparesis Surgical History (Updated 11/11/24 @ 12:27 by Carmelina Schilling RN) History of tonsillectomy and adenoidectomy Social History Household Members: Significant Other and Other Household Members Other:: Roommate Patient Tobacco Use Status: Current everyday Tobacco user Tobacco use type: Cigarette Cigarette Packs Per Day: 0.5 Cigarettes Per Day: 10 Years Smoked: hx of 2ppd 20yrs/ Currently vapes as well. e-Cigarette/Vaping Use: Currently Using Substance Use Type: Marijuana Review of Systems Const Denies chills, Denies excessive sweating, Denies fever(s), Denies headache(s) and Denies night sweats Eyes Denies dry eyes and Denies irritation ENT Reports Normal hearing present, Denies headache(s), Denies nasal discharge, Denies post nasal drip and Denies sore throat Card Denies chest pain, Denies chest pain at rest, Denies chest pain with activity, Denies claudication, Denies leg edema, Reports dyspnea on exertion, Denies orthopnea and Denies paroxysmal nocturnal dyspnea Resp Denies change in phlegm color, Denies chest congestion, Reports cough, Denies excessive phlegm production, Denies pain on inspiration, Denies pain with cough, Reports dyspnea on exertion, Denies stridor and Reports wheezing Musc Denies myalgias Neuro Reports Normal hearing present and Denies headache(s) Endo Denies excessive sweating Otto/Lymph Denies lymphadenopathy Aller/Immun Denies seasonal rhinorrhea and Reports wheezing Physical Exam Vital Signs: Last Vital Signs Pulse 85 12/17/24 11:05 BP 98/70 12/17/24 11:05 Pulse Ox 96 12/17/24 11:05 Oxygen Delivery Method Room Air 12/17/24 11:05 BMI result Body Mass Index 36.2 Const General: cooperative, healthy appearing, comfortable, no acute distress, well developed and alert Nutritional Appearance: obese Orientation/consciousness: patient oriented x3 Limitations: no limitations HEENT Head: Yes normal to inspection, Yes normocephalic and Yes atraumatic Ears: hearing grossly normal bilaterally and external ears normal Eyes General: appearance normal, both eyes and all related structures Eyelids: Yes eyelids normal Sclerae: sclerae normal EOM: EOMs intact bilaterally Neck Neck: Yes normal visual inspection and Yes no lymphadenopathy Lymphatic: no lymphadenopathy noted Chest Chest palpation & inspection: normal inspection of the chest Resp Effort & Inspection: normal respiratory effort, able to speak in complete sentences, no audible wheezes, no cough, no stridor, not tachypneic, no tripod positioning and no use of accessory muscles Auscultation: clear to auscultation bilaterally Cardio Jugular venous distension: no JVD Rate: regular rate Rhythm: regular rhythm Skin Other: warm, dry General skin exam: no rashes or lesions noted Neuro General: patient oriented x3 Cranial nerves: Yes Normal hearing present Cognition (Neuro): normal cognition Gait exam (Neuro): Normal gait present Extrem General: Yes normal to inspection, Yes capillary refill normal, Yes no clubbing, cyanosis or edema and Yes no pedal edema Psych Appearance: grossly normal and well kempt Speech and movement: Normal speech and movement present and Clear speech present Affect: normal affect Attitude: cooperative Thought process: Normal thought process present Thought content: Normal thought content present Insight: Good insight present (Psych) Judgement: Good judgement present (Psych) Results Reviewed Results Reviewed: [place] [id number] CT Scan Report Signed Patient: Melba Yates MR#: [id number] : 1985 Acct:[id number] Age/Sex: 39 / F ADM Date: 11/19/24 Loc: HO.CT Attending Dr: Steph Somers NP Ordering Physician: Steph Somers NP Date of Service: 11/19/24 Procedure(s): CT chest wo IV con Accession Number(s): [id number] cc: Physician,Unknown ; Steph Somers NP~ Report Number: [id number]: Total DLP = 243.00 mGy-cm CLINICAL HISTORY: R05.3 - Chronic cough CT chest without contrast Comparison: None provided Findings: The heart is normal size. The visualized thyroid and mediastinum are unremarkable. No consolidation or effusion. There is hepatic steatosis. No acute fractures. IMPRESSION: 1. Unremarkable chest CT. Hepatic steatosis. This document has been electronically signed by: Garrett Baptiste MD on 11/20/2024 12:58:15 Dictated By: Garrett Baptiste MD Signed By: <Electronically signed by Garrett Baptiste MD in OV> 11/20/24 1258 DD/ 1258 TD/TT: 11/20/24 1258 Transcriptioni Assessment & Plan Assessment & Plan (1) Asthma: Code(s): J45.909 - Unspecified asthma, uncomplicated Category: Medical (2) Environmental allergies: Code(s): Z91.09 - Other allergy status, other than to drugs and biological substances Category: Medical (3) Nicotine dependence, cigarettes, uncomplicated: Code(s): F17.210 - Nicotine dependence, cigarettes, uncomplicated Category: Medical (4) Chronic cough: Code(s): R05.3 - Chronic cough Category: Medical Plan Discussed importance of medication adherence which she was agreeable to with Symbicort and albuterol MDI. Will send nebulizer for home use in addition to albuterol solution. CT chest unremarkable other than a few areas of emphysematous changes of right apex. There was an incidental finding of hepatic steatosis, which she is aware of and having further testing with PCP. Encouraged patient to obtain labs entered at prior visit to assess for an allergic component and overall immune function. She is aware to call if symptoms do not improve with consistent use of Symbicort and antihistamine. Stressed the importance of smoking cessation, she is requesting NRT, will send. All questions were answered and patient is in agreement of plan. Will follow up in 8-10 weeks or sooner if needed. Medications: New albuterol sulfate 2.5 mg (3 mL) inhalation Q4-6H PRN 180 mL 3RF shortness of breath or wheezing nicotine (polacrilex) (Nicorette) mint flavor preferred 4 mg buccal Q2H 110 ea 0RF Changed From albuterol sulfate 90 mcg/actuation 1 inh inhalation QID PRN 6.7 grams 0RF shortness of breath or wheezing J45.909 - Unspecified asthma, uncomplicated To albuterol sulfate 90 mcg/actuation 2 inhalations inhalation Q4-6H PRN 1 ea 2RF shortness of breath or wheezing J45.909 - Unspecified asthma, uncomplicated Coding Level of Care Code Est Pt Level 4 (03340) Diagnoses Asthma J45.909 Environmental allergies Z91.09 Nicotine dependence, cigarettes, uncomplicated F17.210 Chronic cough R05.3
[2024-12-17 11:05] VITALS: BP 98/70; PULSE 85; O2SAT 96; BMI 36.2
--- OUTSIDE RECORDS SUMMARY | 2024-12-17 14:06 | XMS_ITS | Clinical Summary ---
Author Organization [facility] Address [address] [place] [address] Care Team Providers Care Bait Maker Name Role Phone Adolfo Hooker MD Primary Care Provider [phone] Allergies Active Allergy Reactions Criticality Noted Date [...] 02/27/2021 Influenza Vaccine 11/07/2024 02/22/2021, 01/22/2017 Insurance [facility] (AUTO/LIABILITY) Care Teams Bait Maker Relationship Specialty Start Date End Date Adolfo Hooker MD [address] [place] [address] PCP - General Family Medicine 05/20/23
--- OUTSIDE RECORDS SUMMARY | 2024-12-17 14:06 | XMS_ITS | Clinical Summary ---
Author Organization [facility] it[facility] Address [address] [place] [address] Care Team Providers Care Supervisor Production Managing Name Role Phone Unavailable Primary Care Provider [...] Screening: P ap Smear 2007 Depression Screening 04/09/2024 COVID-19 Vaccine ( - 2023-2 5 season) 2024 Influenza Vaccine (#1) 2024 HIB Vaccines Aged [...]
== END 2024-12-17 11:36 | disposition home or self-care (01) ==
LOC: HO.HPSW 11:03
PROVIDERS: Visit Provider Nurse Practitioner Family
DX: J45.909 Unspecified asthma, uncomplicated (principal); Z91.09 Other allergy status, other than to drugs and biological substances; F17.210 Nicotine dependence, cigarettes, uncomplicated; R05.3 Chronic cough
CPT/HCPCS: 99214